=== PATIENT | female | born 1940 | race Caucasian/White ===

== ENCOUNTER → 2017-11-28 07:55 | Outpatient (CLI) | payer MEDICARE, OTHER, SELFPAY ==
--- NOTE | 2017-11-28 07:59 | US_ITS ---
STUDY: RENAL ULTRASOUND - COMPLETE REASON FOR EXAM: Female, 77 years old. Renal failure. TECHNIQUE: Ultrasound evaluation of the kidneys was performed with real-time and static mortensen-scale imaging. COMPARISON: Comparison is made with prior examination dated February 03, 2009. FINDINGS: RIGHT KIDNEY: Normal location of the right kidney, which is normal in size. The right kidney measures 12.7 cm x 4.6 cm x 5.4 cm. There is a normal cortex of the right kidney. The renal cortex measures 1.5 cm. There is a 4.3 cm x 4.2 cm x 4.2 cm cyst in the lower pole. There are no right renal calculi. There is no right hydronephrosis. DISTAL RIGHT URETER: There is non-visualization of the distal right ureter. There is no demonstrated right ureterovesical junction calculus. There is no demonstrated right ureteral jet. LEFT KIDNEY: Normal location of the left kidney, which is normal in size. The left kidney measures 13.4 cm x 4.6 cm x 4.7 cm. There is a normal cortex of the left kidney. The renal cortex measures 1.3 cm. 2 cysts are seen. The larger measures 7.8 cm x 5.2 cm x 4.6 sinus. There are no left renal calculi. There is no left hydronephrosis. DISTAL LEFT URETER: There is non-visualization of the distal left ureter. There is no demonstrated left ureterovesical junction calculus. There is no demonstrated left ureteral jet. BLADDER: The bladder was empty at the time of the examination. US/Kidney and Bladder IMPRESSION: Bilateral renal cysts. Electronically Signed: Deion Mora MD at 13:35 EST Tel [phone], Service support ,
== END ==
PROVIDERS: Family Provider Family Medicine; PCP Family Medicine; Visit Provider Family Medicine
DX: N19 Unspecified kidney failure (principal)
CPT/HCPCS: 76770

== ENCOUNTER → 2017-12-12 10:26 | Outpatient (CLI) | payer MEDICARE, OTHER, SELFPAY ==
[2017-12-12 11:54] LABS: Anion Gap 7 (5-15); BUN 29 mg/dL (7-18); BUN/Creat Ratio 19.3 RATIO (10-20); Calcium,Total 9.1 mg/dL (8.5-10.1); Chloride 100 mmol/L (98-107); EST Glomerular Filtration Rate 36 mL/min (>60); Est Glom Filt Rate - Afr Amer 43 mL/min (>60); Glucose 115 mg/dL (74-106); Potassium 4.1 mmol/L (3.5-5.1); Sodium Level 135 mmol/L (136-145)
== END ==
PROVIDERS: Family Provider Family Medicine; PCP Family Medicine; Visit Provider Family Medicine
DX: I10 Essential (primary) hypertension (principal)
CPT/HCPCS: 36415; 80048

== ENCOUNTER → 2017-12-31 15:28 | Outpatient (CLI) | payer MEDICARE, OTHER, SELFPAY ==
[2017-12-31 18:30] LABS: Anion Gap 7 (5-15); BUN 17 mg/dL (7-18); BUN/Creat Ratio 13.3 RATIO (10-20); Calcium,Total 9.1 mg/dL (8.5-10.1); Chloride 104 mmol/L (98-107); Creatinine, Serum 1.28 mg/dL (0.55-1.02); EST Glomerular Filtration Rate 43 mL/min (>60); Est Glom Filt Rate - Afr Amer 52 mL/min (>60); Glucose 88 mg/dL (74-106); Potassium 3.8 mmol/L (3.5-5.1); Sodium Level 139 mmol/L (136-145)
== END ==
PROVIDERS: Family Provider Family Medicine; PCP Family Medicine; Visit Provider Family Medicine
DX: I10 Essential (primary) hypertension (principal)
CPT/HCPCS: 36415; 80048

== ENCOUNTER → 2018-03-10 07:49 | Outpatient (CLI) | payer MEDICARE, OTHER, SELFPAY ==
[2018-03-10 11:02] LABS: Anion Gap 8 (5-15); BUN 20 mg/dL (7-18); BUN/Creat Ratio 17.9 RATIO (10-20); Calcium,Total 8.5 mg/dL (8.5-10.1); Chloride 106 mmol/L (98-107); Cholesterol 172 mg/dL (200); Creatinine, Serum 1.12 mg/dL (0.55-1.02); EST Glomerular Filtration Rate 50 mL/min (>60); Est Glom Filt Rate - Afr Amer 60 mL/min (>60); Glucose 75 mg/dL (74-106); High Density Lipoprotein 68 mg/dL; Potassium 3.9 mmol/L (3.5-5.1); Sodium Level 142 mmol/L (136-145); Thyroid Stim Hormone (TSH) 2.08 uIU/mL (0.358-3.74); Triglycerides 78 mg/dL; Very Low Density Lipoprotein 16 mg/dL (5-40)
== END ==
PROVIDERS: Family Provider Family Medicine; PCP Family Medicine; Visit Provider Family Medicine
DX: F41.9 Anxiety disorder, unspecified (principal); I10 Essential (primary) hypertension
CPT/HCPCS: 36415; 80048; 80061; 84443

== ENCOUNTER → 2018-04-16 12:22 | Outpatient (CLI) | payer MEDICARE, OTHER, SELFPAY ==
--- NOTE | 2018-04-16 12:56 | BD_ITS ---
STUDY: DUAL ENERGY X-RAY ABSORPTIOMETRY / DXA REASON FOR EXAM: Female, 77 years old. The patient is postmenopausal. Loss of height. TECHNIQUE: Bone Mineral Density (BMD) measurements of lumbar spine and bilateral hips were obtained. COMPARISON: Comparison is made with prior study dated October 10, 2015. FINDINGS: Lumbar Spine (L1-L4): g/cm2 (0.994) / T-score (-1.5) / Z-score (0.3) Findings are suggestive of osteopenia with a moderate fracture risk. Increased kyphosis. Left Femur Total: g/cm2 (0.75 to) / T-score (-2.0) / Z-score (-0.1) Left Femoral Neck: g/cm2 (0.729) / T-score (-2.2) / Z-score (-0.1) Right Femur Total: g/cm2 (0.803) / T-score (-1.6) / Z-score (0.3) Right Femoral Neck: g/cm2 (0.708) / T-score (-2.4) / Z-score (-0.3) The T-Scores on the most recent prior examination were: Lumbar Spine (L1-L4): There has been improvement of bone density since the previous examination. Left Femur Total: which represents a worsening of 10.6%. Right Femur Total: which represents a worsening of 10.1%. BD/Dexa Bone Density Study IMPRESSION: The patient is considered osteopenic as outlined below according to World Tee Organization (WHO) criteria with a moderate fracture risk. There has been worsening of bone density since the previous examination. Reference Information: The T-score is the number of standard deviations above or below the standard which is normal for young adults at their peak bone mineral density. The World Health Organization (WHO) interprets the T-scores as follows: Above -1 Normal bone density Between -1 and -2.5 Osteopenia Equal to / or below -2.5 Osteoporosis As a practical clinical guideline, osteopenia may be graded as follows: Mild -1 through -1.5 Moderate -1.6 through -2.0 Severe -2.1 through -2.4 The Z-score is the number of standard deviations above or below age-matched controls. A Z-score of less than -1.5 would be considered abnormal. References: 1. NIH Osteoporosis and Related Bone Diseases http://www.osteo.org 2. International Society for Clinical Densitometry http://www.iscd.org 3. National Osteoporosis Foundation http://www.nof.org Electronically Signed: Deion Mora MD at 15:18 EDT Tel [phone], Service support ,
== END ==
PROVIDERS: Family Provider Family Medicine; PCP Family Medicine; Visit Provider Family Medicine
DX: Z78.0 Asymptomatic menopausal state (principal); M85.80 Other specified disorders of bone density and structure, unspecified site
CPT/HCPCS: 77080

== ENCOUNTER → 2018-06-19 10:59 | Outpatient (CLI) | payer MEDICARE, OTHER, SELFPAY ==
[2018-06-19 12:42] LABS: AST(SGOT) 23 U/L (15-37); Alanine Aminotransfer ALT/SGPT 25 U/L (13-56); Albumin, Serum 3.8 g/dL (3.2-5.0); Alkaline Phosphatase 68 U/L (45-117); Anion Gap 10 (5-15); BUN 23 mg/dL (7-18); BUN/Creat Ratio 19.7 RATIO (10-20); Calcium,Total 8.9 mg/dL (8.5-10.1); Chloride 105 mmol/L (98-107); Creatinine, Serum 1.17 mg/dL (0.55-1.02); EST Glomerular Filtration Rate 47 mL/min (>60); Est Glom Filt Rate - Afr Amer 57 mL/min (>60); Globulin 3.7 g/dL (2.2-4.2); Glucose 94 mg/dL (74-106); Protein, Total 7.5 g/dL (6.4-8.2); Sodium Level 140 mmol/L (136-145)
== END ==
PROVIDERS: Family Provider Family Medicine; PCP Family Medicine; Visit Provider Family Medicine
DX: N19 Unspecified kidney failure (principal)
CPT/HCPCS: 36415; 80053

== ENCOUNTER → 2018-08-06 09:24 | Outpatient (CLI) | payer MEDICARE, OTHER, SELFPAY ==
[2018-08-06 10:19] LABS: Anion Gap 9 (5-15); BUN 26 mg/dL (7-18); BUN/Creat Ratio 21.7 RATIO (10-20); Calcium,Total 8.7 mg/dL (8.5-10.1); Chloride 105 mmol/L (98-107); EST Glomerular Filtration Rate 46 mL/min (>60); Est Glom Filt Rate - Afr Amer 56 mL/min (>60); Glucose 118 mg/dL (74-106); Sodium Level 139 mmol/L (136-145)
[2018-08-06 10:28] LABS: ALB/GLOB Ratio 1.1 RATIO (0.9-2.4); AST(SGOT) 20 U/L (15-37); Alanine Aminotransfer ALT/SGPT 23 U/L (13-56); Albumin, Serum 3.7 g/dL (3.2-5.0); Alkaline Phosphatase 66 U/L (45-117); Anion Gap 9 (5-15); BUN 26 mg/dL (7-18); BUN/Creat Ratio 21.3 RATIO (10-20); Calcium,Total 8.6 mg/dL (8.5-10.1); Chloride 105 mmol/L (98-107); Creatinine, Serum 1.22 mg/dL (0.55-1.02); EST Glomerular Filtration Rate 45 mL/min (>60); Est Glom Filt Rate - Afr Amer 55 mL/min (>60); Globulin 3.5 g/dL (2.2-4.2); Glucose 120 mg/dL (74-106); Potassium 3.9 mmol/L (3.5-5.1); Protein, Total 7.2 g/dL (6.4-8.2); Sodium Level 139 mmol/L (136-145); Thyroid Stim Hormone (TSH) 2.02 uIU/mL (0.358-3.74)
== END ==
PROVIDERS: Family Provider Family Medicine; PCP Family Medicine; Referring Provider Internal Medicine Cardiovascular Disease; Visit Provider Internal Medicine Cardiovascular Disease
DX: I10 Essential (primary) hypertension (principal); Z86.73 Personal history of transient ischemic attack (TIA), and cerebral infarction without residual deficits; E03.9 Hypothyroidism, unspecified
CPT/HCPCS: 36415; 80048; 80053; 84443

== ENCOUNTER → 2018-08-17 12:27 | Outpatient (CLI) | payer MEDICARE, OTHER, SELFPAY ==
--- NOTE | 2018-08-17 12:28 | CDU_ITS ---
Reason For Study: CVA Rt. Velocities/BP Lt. Velocities/BP Prox CCA 76.2/9.38 cm/sec. Prox CCA 86.8/13.5 cm/sec. Mid CCA 69.8/9.97 cm/sec. Mid CCA 70.4/13.5 cm/sec. Dist CCA 57/11 cm/sec. Dist CCA 63.3/13.5 cm/sec. Prox ICA 35/9.04 cm/sec. Prox ICA 46.8/8.64 cm/sec. Mid ICA 81.7/27.5 cm/sec. Mid ICA 55.8/14.5 cm/sec. Dist ICA 69.1/17.3 cm/sec. Dist ICA 58.7/15.7 cm/sec. Rt. ICA/CCA = 1.17. Lt. ICA/CCA = 0.83. Prox ECA 77.4 cm/sec. Prox ECA 76.2 cm/sec. Rt. Vert. 31.8/4.91 cm/sec. Lt. Vert. 46/14.1 cm/sec. Right Extracranial There is intimal thickening but no significant atherosclerotic plaque noted in the right common carotid artery. There is intimal thickening but no significant atherosclerotic plaque noted in the right internal carotid artery. There is intimal thickening but no significant atherosclerotic plaque noted in the right external carotid artery. Antegrade flow is noted in the right vertebral artery. Left Extracranial There is intimal thickening but no significant atherosclerotic plaque noted in the left common carotid artery. There is intimal thickening but no significant atherosclerotic plaque noted in the left internal carotid artery. There is intimal thickening but no significant atherosclerotic plaque noted in the left external carotid artery. Antegrade flow is noted in the left vertebral artery. Procedure Carotid Duplex [id number]. Exam performed in department. 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 Mild (<50%) stenosis left extracranial internal carotid. Flow within the vertebral arteries is antegrade bilaterally. Ordering Physician: Hansel Schaffer Referring Physician: Florian Juarez MD Performed By: Alisia Draper RVT and Student
--- NOTE | 2018-08-17 12:28 | ECHOD_ITS ---
Reason For Study: TIA/CVA Procedure This was a 2D Doppler, Color Flow transthoracic echocardiogram. The exam was of adequate technical quality. Exam performed in department. Left Ventricle Normal LV size. Mild concentric left ventricular hypertrophy. Apical false tendon noted. Left ventricular systolic function is normal. The estimated ejection fraction is 65 %. Diastolic function is indeterminate. No regional wall motion abnormalities noted. Right Ventricle Normal RV size. Normal systolic function. Atria Normal left atrium. Normal right atrium. No doppler evidence for ASD. Mitral Valve There is no mitral annular calcification. Normal mitral valve. Trivial mitral valve insufficiency. Tricuspid Valve Normal tricuspid valve. Mild tricuspid valve insufficiency. Right ventricular systolic pressure estimated to be 20 mmHg. Aortic Valve Trisinus/trileaflet aortic valve. Normal aortic valve. Pulmonic Valve The pulmonic valve is not well visualized. Trivial pulmonic valve insufficiency. Great Vessels Normal sized aortic root. Pericardium/Pleural No pericardial effusion. MMode/2D Measurements & Calculations LVIDd: 3.7 cm IVSd: 1.4 cm Ao root diam: 3.4 cm LVIDs: 1.9 cm LVPWd: 1.3 cm LA dimension: 3.4 cm RVDd: 2.9 cm FS: 48.0 % Time Measurements MV dec time: 0.23 sec Doppler Measurements & Calculations MV E max conner: 70.1 cm/sec Lat Peak E' Conner: 6.7 cm/sec Med Peak E' Conner: 4.3 cm/sec MV A max conner: 84.7 cm/sec E/E' lat: 10.4 E/E' med: 16.2 MV E/A: 0.83 MV V2 max: 95.3 cm/sec MV P1/2t max conner: 70.3 cm/sec Ao V2 max: 128.9 cm/sec MV max P.6 mmHg MV P1/2t: 125.5 msec Ao max P.6 mmHg MV V2 mean: 58.7 cm/sec MV dec slope: 164.1 cm/sec2 Ao V2 mean: 79.7 cm/sec MV mean P.5 mmHg MVA(P1/2t): 1.8 cm2 Ao mean P.0 mmHg MV V2 VTI: 32.2 cm Ao V2 VTI: 27.7 cm LV V1 max: 124.0 cm/sec TR max conner: 183.2 cm/sec LV V1 max P.2 mmHg TR max P.3 mmHg LV V1 mean P.7 mmHg LV V1 mean: 74.6 cm/sec LV V1 VTI: 27.2 cm Interpretation Summary Left ventricular systolic function is normal. The estimated ejection fraction is 65 %. Mild concentric left ventricular hypertrophy. Apical false tendon noted. Trivial mitral valve insufficiency. Mild tricuspid valve insufficiency. Trivial pulmonic valve insufficiency. Right ventricular systolic pressure estimated to be 20 mmHg. Diastolic function is indeterminate. Ordering Physician: Hansel Schaffer Referring Physician: Hansel Schaffer Performed By: Lane Persaud RCS
[2018-08-17 13:58] LABS: Anion Gap 7 (5-15); BUN 25 mg/dL (7-18); BUN/Creat Ratio 17.1 RATIO (10-20); Calcium,Total 9.2 mg/dL (8.5-10.1); Chloride 102 mmol/L (98-107); Creatinine, Serum 1.46 mg/dL (0.55-1.02); EST Glomerular Filtration Rate 37 mL/min (>60); Est Glom Filt Rate - Afr Amer 44 mL/min (>60); Glucose 110 mg/dL (74-106); Potassium 4.1 mmol/L (3.5-5.1); Sodium Level 137 mmol/L (136-145)
== END ==
PROVIDERS: Family Provider Family Medicine; PCP Family Medicine; Referring Provider Internal Medicine Cardiovascular Disease; Visit Provider Internal Medicine Cardiovascular Disease
DX: I10 Essential (primary) hypertension (principal); Z86.73 Personal history of transient ischemic attack (TIA), and cerebral infarction without residual deficits
CPT/HCPCS: 36415; 80048; 93306; 93880

== ENCOUNTER → 2018-09-07 09:11 | Outpatient (CLI) | payer MEDICARE, OTHER, SELFPAY ==
[2018-07-30 11:18] VITALS: BMI 28.1
[2018-09-07 10:05] LABS: Anion Gap 12 (5-15); BUN 25 mg/dL (7-18); BUN/Creat Ratio 18.9 RATIO (10-20); Calcium,Total 8.6 mg/dL (8.5-10.1); Chloride 105 mmol/L (98-107); Creatinine, Serum 1.32 mg/dL (0.55-1.02); EST Glomerular Filtration Rate 41 mL/min (>60); Est Glom Filt Rate - Afr Amer 50 mL/min (>60); Glucose 85 mg/dL (74-106); Potassium 4.3 mmol/L (3.5-5.1); Sodium Level 141 mmol/L (136-145)
== END ==
PROVIDERS: Family Provider Family Medicine; PCP Family Medicine; Referring Provider Internal Medicine Cardiovascular Disease; Visit Provider Internal Medicine Cardiovascular Disease
DX: I10 Essential (primary) hypertension (principal); E87.6 Hypokalemia
CPT/HCPCS: 36415; 80048

== ENCOUNTER → 2018-10-12 09:37 | Outpatient (CLI) | payer MEDICARE, OTHER, SELFPAY ==
[2018-07-30 11:18] VITALS: BMI 28.1
--- NOTE | 2018-10-12 09:41 | BI_ITS ---
MAMMOGRAPHY - BILATERAL SCREENING REASON FOR EXAM: Female, 78 years old. Routine annual screening examination. PERTINENT HISTORY: Aunt with breast cancer. Remote left stereotactic breast biopsies. TECHNIQUE: Digital bilateral breast saritha (3D mammographic acquisition) in the CC and MLO projections. 2-D mediolateral oblique (MLO) and craniocaudad (CC) views of both breasts were obtained. CAD: Full Field Digital Mammography with Computer Added Detection was performed. COMPARISON: Comparison is made with prior study dated October 09, 2017. FINDINGS: Breast Composition: The breasts are almost entirely fatty. There are no dominant masses or suspicious calcifications. Stable benign-appearing bilateral axillary lymph nodes. No other significant abnormalities are identified. There has been no significant change since the prior study. BI/SCREENING MAMM (CAD), BILAT IMPRESSION: Stable bilateral screening mammogram. Yearly follow-up mammogram recommended. (A) ASSESSMENT CATEGORY: BIRADS Category 2: Benign. A letter regarding these results will be sent to the patient by the facility within 30 days. Approximately 10% of breast cancers are not detected by mammography. A normal mammogram should not delay biopsy of a clinically suspicious abnormality. [id number] Electronically Signed: Deion Mora MD at 13:39 EST Tel [phone], Service support ,
== END ==
PROVIDERS: Family Provider Family Medicine; PCP Family Medicine; Visit Provider Nurse Practitioner Women's Health
DX: Z12.31 Encounter for screening mammogram for malignant neoplasm of breast (principal)
CPT/HCPCS: 77063; 77067

== ENCOUNTER → 2018-11-02 12:48 | Outpatient (CLI) | payer MEDICARE, OTHER, SELFPAY ==
[2018-11-02 11:38] VITALS: BMI 28.5
[2018-11-02 16:01] LABS: Anion Gap 8 (5-15); BUN 28 mg/dL (7-18); BUN/Creat Ratio 19.2 RATIO (10-20); Chloride 103 mmol/L (98-107); Creatinine, Serum 1.46 mg/dL (0.55-1.02); EST Glomerular Filtration Rate 37 mL/min (>60); Est Glom Filt Rate - Afr Amer 44 mL/min (>60); Glucose 87 mg/dL (74-106); Potassium 4.6 mmol/L (3.5-5.1); Sodium Level 139 mmol/L (136-145)
--- OUTSIDE RECORDS SUMMARY | 2019-01-04 23:45 | XMS RPT_ITS ---
:1940 Author Organization OHIP Support Name Relationship Address Phone R Unavailable Unavailable Unavailable DEEPIKA PETTY Unavailable [address] + [place] [address] [place], LOC Unavailable [address] + [place] [address] R Unavailable Unavailable Unavailable DEEPIKA PETTY Unavailable [address] + [place] [address] [place], LOC Unavailable [address] + [place] [address] R Unavailable Unavailable Unavailable DEEPIKA PETTY Unavailable [address] + [place] [address] [place], LOC Unavailable [address] + [place] [address] R Unavailable Unavailable Unavailable DEEPIKA PETTY Unavailable [address] + [place] [address] [place], LOC Unavailable [address] + [place] [address] R Unavailable Unavailable Unavailable MALINDA, DEEPIKA Unavailable [address] + [place] [address] [place], [place] Unavailable [address] + [place] [address] R Unavailable Unavailable Unavailable ROSA PETTYDY Unavailable [address] + [place] [address] [place], LOC Unavailable [address] + [place] [address] R Unavailable Unavailable Unavailable ROSA PETTYDY Unavailable [address] + [place] [address] [place], LOC Unavailable [address] + [place] [address] R Unavailable Unavailable Unavailable MALINDA, DEEPIKA Unavailable [address] + [place] [address] [place], LOC Unavailable [address] + [place] [address] R Unavailable Unavailable Unavailable DEEPIKA PETTY Unavailable [address] + [place] [address] [place], LOC Unavailable [address] + [place] [address] R Unavailable Unavailable Unavailable DEEPIKA PETTY Unavailable [address] + [place] [address] [place], LOC Unavailable [address] + [place] [address] R Unavailable Unavailable Unavailable DEEPIKA PETTY Unavailable [address] + [place] [address] [place], LOC Unavailable [address] + [place] [address] R Unavailable Unavailable Unavailable DEEPIKA PETTY Unavailable [address] + [place] [address] [place], LOC Unavailable [address] + [place] [address] R Unavailable Unavailable Unavailable DEEPIKA PETTY Unavailable [address] + [place] [address] [place], LOC Unavailable [address] [phone] [place] [address] R Unavailable Unavailable Unavailable DEEPIKA PETTY Unavailable [address] + [place] [address] [place], LOC Unavailable [address] [phone] [place] [address] R Unavailable Unavailable Unavailable DEEPIKA PETTY Unavailable [address] + [place] [address] [place], LOC Unavailable [address] [phone] [place] [address] R Unavailable Unavailable Unavailable ROSA PETTYDY Unavailable [address] + [place] [address] [place], LOC Unavailable [address] [phone] [place] [address] Care Team Providers Name Role Phone Ramona Mejia Attending Unavailable Ranney, Christopher Primary Care Unavailable Ramona Mejia Attending Unavailable Ranney, Florian Referring Unavailable Ranney, Londoner Attending Unavailable [facility], [facility] Unavailable Ranney, Londoner Attending Unavailable Ranney, Christopher Referring Unavailable Ranney, Christopher Primary Care Unavailable Roof, Lemuel H Attending Unavailable Ranney, Christopher Referring Unavailable Roof, Lemuel H Attending Unavailable Roof, Lemuel H Referring Unavailable Ranney, [facility] Primary Care Unavailable Ranney, Christjoanieer Attending Unavailable [facility], [facility] Unavailable Ranney, Christjoanieer Attending Unavailable Ranney, Christopher Referring Unavailable Ranney, [facility] Primary Care Unavailable Ranney, Christopher Attending Unavailable Ranney, [facility] Primary Care Unavailable Ranney, Christjoanieer Attending Unavailable Ranney, [facility] Primary Care Unavailable Nadia Marie Attending Unavailable Moodispaw, Hansel Attending Unavailable Ranney, Londoner Referring Unavailable Moodisp[place], Hansel Attending Unavailable Mood[place], Hansel Referring Unavailable Ranney, [facility] Unavailable Mood[place], Hansel Attending Unavailable Mood[place], Hansel Referring Unavailable Ranney, [facility] Primary Care Unavailable Mood[place], Hansel Attending Unavailable Mood[place], Hansel Referring Unavailable Ranney, [facility] Unavailable Mood[place], Hansel Consulting Unavailable Mood[place], Hansel Attending Unavailable Mood[place], Hansel Referring Unavailable Ranney, [facility] Primary Care Unavailable PROBLEMS PROBLEMS DATE TYPE CONDITION / CODE ATTENDING STATUS SOURCE 11/02/2018 Unknown I10 - Essential Roof, Lemuel Patino Active [place] (primary) Community hypertension / Hospital I10(ICD-10) Repository 11/02/2018 Unknown E78.5 - Roof, Lemuel Patino Active [place] Hyperlipidemia, Community unspecified / Hospital E78.5(ICD-10) Repository 11/02/2018 Unknown I63.9 - Cerebral Roof, Lemuel Patino Active [place] infarction, Community unspecified / Hospital I63.9(ICD-10) Repository 10/23/2018 Unknown Z01.411 - Encounter Ramona Mejia Active [place] for gynecological [facility] examination Hospital (general) (routine) Repository with abnormal findings / Z01.411(ICD-10) 10/23/2018 Unknown N95.2 - Ramona Mejia Active [place] Postmenopausal Community atrophic vaginitis / Hospital N95.2(ICD-10) Repository 10/19/2018 Unknown Z12.31 - Encounter Ramona Mejia Active [place] for screening Community mammogram for Hospital malignant neoplasm Repository of breast / Z12.31(ICD-10) 08/17/2018 Unknown Z86.73 - Personal MoodispaHansel valdez Active [place] history of transient Community ischemic attack Hospital (TIA), and cerebral Repository infarction without residual deficits / Z86.73(ICD-10) 12/24/2017 Unknown N19 - Unspecified Rantrue, Active [place] kidney failure / [facility] N19(ICD-10) Hospital Repository PROCEDURES PROCEDURES No Procedure Records FoundRESULTS RESULTS CARDIOLOGY VISIT Observed: 11/02/2018 Status: F Source: [place] REPORT 3:19 PM [facility] HOSPITAL REPOSITORY [facility]. [address] [place] [address] OFFICE VISIT Date of Service: 11/02/18 MR#: [id number] Acct: [id number] Name: STEVE SAAVEDRA Rep #: [id number] : 1940 Provider: PRUDENCE Mcdermott Age/Sex: 78/F [place] [facility] Status: Signed HPI HPI Details: STEVE SAAVEDRA, is a 78 F who presents to the office today for a cardiovascular outpatient follow-up. She has a history of hypertension, hyperlipidemia, and multiple CVAs. She has been on multiple medications in the past for hypertension. Her amlodipine has been decreased to avoid significant hypotension. Previously when on hydrochlorothiazide she developed hyponatremia and hypokalemia. Pt. denies chest, arm, jaw, or neck discomfort. Her exercise tolerance is stable. Pt. denies symptoms of CHF, palpitations, dizziness, near syncope, or syncopal episodes. Pt. denies edema or claudication issues. Pt. denies PND, fever, chills, blood in urine, blood in stool, or myalgia. She states generally feels tired. She states few episodes of lightheadedness after not sleeping well or anxious. She states when anxious she notices leg weakness. She state rare episodes of muscle cramps. She states possible orthopnea and thus always sleeps on an incline and d/t history of GERD. 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 Required: No Accompanied by: Is patient in pain?: No Allergies escitalopram [From Lexapro] Allergy (Severe, Verified 11/02/18 11:46) parasthesis Sulfa (Sulfonamide Antibiotics) Allergy (Verified 11/02/18 11:46) Unknown verapamil HCl [From Covera-HS] Allergy (Verified 11/02/18 11:46) Other simvastatin [From Zocor] Adverse Reaction (Severe, Verified 11/02/18 11:46) Myalgias Medications Ubidecarenone/Vit E Acet [Co Q-10 100 mg Softgel] 1 ea PO DAILY 03/02/17 [History Confirmed 11/02/18] B Complex with Vitamin C [B-Complex Plus Vitamin C] 1 ea PO DAILY #30 03/18/17 [Rx Confirmed 11/02/18] Cholecalciferol (VIT D3) [Vitamin D3] 1,000 unit PO BIDCM #60 tab 03/18/17 [Rx Confirmed 11/02/18] Senna [Senokot] 1 tab PO BID PRN PRN #30 tab 03/24/17 [Rx Confirmed 11/02/18] loratadine 10 mg tablet 10 mg PO QDAY 09/30/17 [History Confirmed 11/02/18] amlodipine 5 mg tablet 5 mg PO DAILY 07/30/18 [History Confirmed 11/02/18] atenolol 25 mg tablet 25 mg PO BID tab 07/30/18 [History Confirmed 11/02/18] clopidogrel 75 mg tablet 75 mg PO DAILY tab 07/30/18 [History Confirmed 11/02/18] esomeprazole magnesium 40 mg capsule,delayed release 40 mg PO DAILY 07/30/18 [History Confirmed 11/02/18] levothyroxine 50 mcg tablet 50 mcg PO DAILY 07/30/18 [History Confirmed 11/02/18] lorazepam 0.5 mg tablet 0.5 mg PO QHS PRN 07/30/18 [History Confirmed 11/02/18] losartan 100 mg tablet 100 mg PO DAILY 07/30/18 [History Confirmed 11/02/18] rosuvastatin 10 mg tablet 10 mg PO DAILY 07/30/18 [History Confirmed 11/02/18] spironolactone 25 mg tablet 25 mg PO DAILY #90 tab 09/14/18 [Rx Confirmed 11/02/18] Ejection fraction %: 65 to 70 PFSH Medical History Hypokalemia (Acute) Received intravenous tissue plasminogen activator (tPA) in emergency department (Chronic) Hyperlipidemia (Chronic) History of stroke (Chronic) HTN (hypertension) (Chronic) Cephalgia (Chronic) GERD (gastroesophageal reflux disease) (Chronic) Carpal tunnel syndrome of left wrist (Suspected) CVA (cerebral vascular accident) (Chronic) Hypothyroid (Chronic) Hypokalemia (Inactive) Hyponatremia (Inactive) Surgical History Status post Mohs surgery (Resolved 2011) History of hysterectomy (Resolved) History of tonsillectomy (Resolved) History of tubal ligation (Resolved) Family History Father Heart disease Emphysema of lung Social History Smoking Status: Never smoker alcohol intake: never substance use type: does not use caffeine: Yes Type: coffee Number of servings: 2 what type of physical activity do you participate in: walking seatbelt use: always do you feel safe at home: Yes additional social history: Loc-Retired ROS Const Const: Positive for fatigue; negative for body ache, fever(s), chills or weakness ENT ENT: Negative for dizziness Cardio Chest Pain: No Palpitations: No Edema: None Muscle aches with walking: None Resp Respiratory: Negative for SOB with activity, SOB at rest, SOB orthopnea\SOB lying down or paroxysmal nocturnal dyspnea GI GI: Negative nausea, black,tarry stools, bright, red blood in stools or vomiting blood/hematemesis : Negative for hematuria or frequent nighttime urination/ nocturia Musc Musc: Negative for muscle aches/ myalgia Skin Skin: Negative non-healing lesions or rash Neuro Neuro: Positive for lightheadedness; negative for weakness, dizziness, near syncope, syncope or orthostatic symptoms Endo Endo: Positive for fatigue Allergy Allergy/Immunology: Negative for rash Cardiology Exam Const Appearance: cooperative, healthy appearing, comfortable, no acute distress, well developed and well groomed Nutritional Appearance: overweight and well nourished Orientation: alert, awake and oriented x3 Head Head: normal to inspection, normocephalic and atraumatic Ears: hearing grossly normal bilaterally Nose: external nose normal Face and Sinus: face symmetric Mouth: oral mucosae normal Teeth and gingiva: fair dentition Eyes Eyelids: eyelids normal Conjunctivae: conjunctivae normal Pupils: PERRL EOM: EOM intact bilaterally Neck Neck: normal visual inspection and full ROM Carotids: normal carotid upstroke Chest Chest inspection: normal inspection of the chest, symmetric chest movement and normal respiratory effort Auscultation: Bilateral: Clear to Auscultation Cardio Palpation: normal PMI Rate: regular rate Rhythm: regular rhythm Heart sounds: S1 normal and S2 normal; negative rub, gallop or murmur GI GI: normal to inspection, bowel sounds present and soft Neuro General: alert, awake and oriented x3 Skin Skin: no rashes or lesions noted Extremities Pulses: Normal: Right Radial Pulse, Left Radial Pulse Lower Extremity Edema: None: Bilateral Psych Psychological: normal affect Assessment AND Plan 1. Essential hypertension I10 Plan After last office visit she was started on low-dose spironolactone. She underwent a BMP evaluation showed stable sodium and potassium level. Her blood pressure is better controlled since addition of this medication. At this time she will continue current medications and we will continue to monitor. She will undergo a BMP to evaluated electrolytes and kidney function. Orders Orders: 2. Hyperlipidemia, unspecified hyperlipidemia type E78.5 Plan Lipid panel from February 2018 showed cholesterol: 172, HDL: 68, LDL: 80, and triglycerides: 78. She will continue with current statin medication. We will continue to monitor. She believes this may be evaluated by primary care provider. Orders Orders: 3. CVA (cerebral vascular accident) I63.9 Plan Her most recent echocardiogram in August 2018 showed ejection fraction of 65%. Her carotid duplex ultrasound from August 2018 showed bilateral right and left extracranial internal carotid with mild, less than 50%, stenosis. Based on her testing there is no obvious changes to explain CVA history. She will continue to follow with PCP for further evaluation. Orders Orders: Plan Detail Additional Comments Thank you for allowing us to participate in the patient's plan of care, if you have any questions please do not hesitate to call. This note was generated using a voice recognition system and there may be incorrect words, spelling, or punctuation that were not noted upon reviewing the office note prior to saving. Follow Up 12 Months (PFM) 6 Months (INDUSTRIAL ENGINEER/PA) Coding Level of Care Code Off vis,est,level 3 Diagnoses Essential hypertension I10 Hypertension type: essential hypertension Hyperlipidemia, unspecified hyperlipidemia type E78.5 Hyperlipidemia type: unspecified CVA (cerebral vascular accident) I63.9 Laterality of affected vessel: right Coding Level of Care Code Off vis,est,level 3 Diagnoses Essential hypertension I10 Hypertension type: essential hypertension Hyperlipidemia, unspecified hyperlipidemia type E78.5 Hyperlipidemia type: unspecified CVA (cerebral vascular accident) I63.9 Laterality of affected vessel: right Supplemental Info Supplemental Information The duplex ultrasound from 08/17/2018: Interpretation Summary Mild (<50%) stenosis right extracranial internal carotid. Mild (<50%) stenosis left extracranial internal carotid. Flow within the vertebral arteries is antegrade bilaterally. Echocardiogram from 08/17/2018: Interpretation Summary Left ventricular systolic function is normal. The estimated ejection fraction is 65 %. Mild concentric left ventricular hypertrophy. Apical false tendon noted. Trivial mitral valve insufficiency. Mild tricuspid valve insufficiency. Trivial pulmonic valve insufficiency. Right ventricular systolic pressure estimated to be 20 mmHg. Diastolic function is indeterminate. Labs LDL Cholesterol 88 mg/dL (0-130) 03/10/18 HDL Cholesterol 68 mg/dL (40-) 03/10/18 Triglycerides 78 mg/dL (-199) 03/10/18 VLDL Cholesterol 16 mg/dL (5-40) 03/10/18 Diagnostics Electrocardiogram 07/30/18 Echocardiogram 08/17/18 Chest X-Ray 03/22/17 11/02/18 4251 <Electronically signed by Lemuel COFFEY> Date Lemuel Mijares Signature: Date (if applicable) CC: Florian Juarez MD BASIC METABOLIC Collected: 11/02/2018 Status: F Source: [place] PROFILE (BMP) 12:54 PM [facility] REPOSITORY TYPE CODE TESTS RESULT OUT OF RANGE REFERENCE UNITS LAB L501.0100 74-106 mg/dL Normal GLU 87 Result Comment: Please note revised GLUCOSE reference range effective 2017. LAB L501.1000 7-18 mg/dL High BUN 28 LAB L501.1100 0.55-1.02 mg/dL High CREAT,SERUM 1.46 Result Comment: The validity of the calculated GFR AND GFRAA in patients over 70 years has not been determined. Clinical correlation is essential. LAB L501.1110 >60 mL/min Low EST GFR 37 Result Comment: Non- GFR Calc LAB L501.1115 >60 mL/min Low EST GFR - AA 44 Result Comment: GFR Calc LAB L501.1300 10-20 RATIO Normal BUN/CRE 19.2 LAB L501.2200 8.5-10.1 mg/dL CA Normal 9.0 LAB L501.5300 136-145 mmol/L NA Normal 139 LAB L501.5600 3.5-5.1 mmol/L K Normal 4.6 LAB L501.5900 98-107 mmol/L CL Normal 103 LAB L501.6100 21.0-32.0 mmol/L Normal CO2 28.0 LAB L501.6200 5-15 Normal GAP 8 Performed By: #### L500.2500 #### [facility] [address] [place], [address] FIELD CARE MANAGER OFFICE VISIT Observed: 10/12/2018 Status: F Source: [place] REPORT 10:49 AM [facility] REPOSITORY [facility] [address] [place] [address] OFFICE VISIT Date of Service: 10/12/18 MR#: [id number] Acct: [id number] Name: STEVE SAAVEDRA Rep #: [id number] : 1940 Provider: PRUDENCE Mejia Age/Sex: 78/F [place] [facility] [place] Signed Intake Vital Signs10/12/18 Height 5 ft 2 in 10/12/18 Weight: 156 lb 2 oz 10/12/18 Body Mass Index (BMI) 28.5 10/12/18 Blood Pressure 134/86 H Intake Visit Reasons: ANNUAL Chief Complaint: Est Annual Accompanied by: Self Is patient in pain?: No Allergies escitalopram [From Lexapro] Allergy (Severe, Verified 07/30/18 11:18) parasthesis Sulfa (Sulfonamide Antibiotics) Allergy (Verified 07/30/18 11:18) Unknown verapamil HCl [From Covera-HS] Allergy (Verified 07/30/18 11:18) Other simvastatin [From Zocor] Adverse Reaction (Severe, Verified 07/30/18 11:18) Myalgias Medications Ubidecarenone/Vit E Acet [Co Q-10 100 mg Softgel] 1 ea PO DAILY 03/02/17 [History Confirmed 10/12/18] B Complex with Vitamin C [B-Complex Plus Vitamin C] 1 ea PO DAILY #30 03/18/17 [Rx Confirmed 10/12/18] Cholecalciferol (VIT D3) [Vitamin D3] 1,000 unit PO BIDCM #60 tab 03/18/17 [Rx Confirmed 10/12/18] Senna [Senokot] 1 tab PO BID PRN PRN #30 tab 03/24/17 [Rx Confirmed 10/12/18] loratadine 10 mg tablet 10 mg PO QDAY 09/30/17 [History Confirmed 10/12/18] amlodipine 5 mg tablet 5 mg PO DAILY 07/30/18 [History Confirmed 10/12/18] atenolol 25 mg tablet 25 mg PO BID tab 07/30/18 [History Confirmed 10/12/18] clopidogrel 75 mg tablet 75 mg PO DAILY tab 07/30/18 [History Confirmed 10/12/18] esomeprazole magnesium 40 mg capsule,delayed release 40 mg PO DAILY 07/30/18 [History Confirmed 10/12/18] levothyroxine 50 mcg tablet 50 mcg PO DAILY 07/30/18 [History Confirmed 10/12/18] lorazepam 0.5 mg tablet 0.5 mg PO QHS PRN 07/30/18 [History Confirmed 10/12/18] losartan 100 mg tablet 100 mg PO DAILY 07/30/18 [History Confirmed 10/12/18] rosuvastatin 10 mg tablet 10 mg PO DAILY 07/30/18 [History Confirmed 10/12/18] spironolactone 25 mg tablet 25 mg PO DAILY #90 tab 09/14/18 [Rx Confirmed 10/12/18] Is last menstrual period known: No Post menopausal: Yes Patient : No : No PFSH Medical History Received intravenous tissue plasminogen activator (tPA) in emergency department (Chronic) Hyperlipidemia (Chronic) History of stroke (Chronic) HTN (hypertension) (Chronic) Cephalgia (Chronic) GERD (gastroesophageal reflux disease) (Chronic) Carpal tunnel syndrome of left wrist (Suspected) CVA (cerebral vascular accident) (Chronic) Hypothyroid (Chronic) Hypokalemia (Inactive) Hyponatremia (Inactive) Surgical History History of hysterectomy (Resolved) History of tonsillectomy (Resolved) History of tubal ligation (Resolved) Family History Father Heart disease Social History Smoking Status: Never smoker alcohol intake: never substance use type: does not use caffeine: Yes what type of physical activity do you participate in: walking seatbelt use: always do you feel safe at home: Yes additional social history: Loc-Retired Pregancy History 3 Elective abortions Hx Para 3 Spontaneous abortions Past Pregnancies Del. DatName GA/WeeksOutcome Route [facility] en tn Unknown 1959 Bra d Unknown 1961 Yecenia an Unknown 1962 Selene y HPI ANNUAL: Details: STEVE SAAVEDRA is a 78 year old who presents for annual exam. Using mineral oil daily for vaginal dryness and occa A AND D ointment if irritated. Works well for her. Estrogen cream too costly History of abnormal PAP: no Last mammogram: today History of abnormal mammogram: neg biopsy Colon cancer screenin Female Reproductive History Questions: Metorrhagia: No, Sexually active: No, Dyspareunia: No, PCB: No ROS Const Constitutional: Denies fatigue, weight gain or weight loss Cardio Card: Denies chest pain Resp Resp: Denies cough or shortness of breath with activity GI GI: Denies abdominal pain, constipation, change in stools, vomiting or bloating : Reports as per HPI; denies urinary frequency, pelvic pain, urinary urgency, vaginal discharge, vaginal itching, urinary incontinence or difficulty urinating Exam Const General: cooperative, healthy appearing, no acute distress, well developed Orientation: alert, oriented to person, oriented to place [facility] Head: normal to inspection Neck Neck: normal visual inspection Thyroid: thyroid normal Lymphatic: no lymphadenopathy noted Chest Breast inspection: normal inspection of the breasts, normal inspection of the axillae Breast palpation: normal palpation of the breasts, normal palpation of the axillae, no axillary lymphadenopathy Resp Effort AND Inspection: normal respiratory effort GI Palpation: soft, nontender, no masses Rectal Exam: deferred External Female Exam: normal appearance of the urethra, other (regression of minora) Urethra: normal appearance of the urethra Speculum Exam - Vagina: normal vaginal discharge, atrophic vaginal mucosa Speculum Exam - Cervix: normal appearance of the cervix (stenotic) Bimanual Exam- Vagina AND Uterus: normal bimanual exam, uterine size normal, uterine shape normal, uterus non-tender Bimanual Exam- Adnexa, other: normal adnexae, no adnexal masses, adnexae non-tender, pelvic support normal Pelvic Support: normal Neuro General: alert, oriented x3 Psych Affect: normal affect Assessment AND Plan Problems 1. Encounter for gynecological examination with abnormal finding Z01.411 2. Atrophic vaginitis N95.2 Plan Completed breast and pelvic exam Reviewed diet and exercise Pap NA Mammogram today pending Continue mineral oil, A AND D as directed Colonoscopy up to date Bone density up to date RTO 2 year, prn with problems Ramona Mejia CNP Coding Level of Care Code MC Pelvic/Breast Diagnoses Encounter for gynecological examination with abnormal finding Z01.411 Gynecological examination findings: abnormal findings PRESENT Atrophic vaginitis N95.2 10/12/18 1049 <Electronically signed by Ramona COFFEY> Date Ramona COFFEY Cosigner Signature: Date (if applicable) CC: SCREENING MAMM (CAD), Observed: 10/12/2018 Status: F Source: [place] BILAT 9:41 AM [facility] HOSPITAL REPOSITORY [facility] [address] [place] [address] SCREENING MAMM (CAD), BILAT MR#: [id number] Acct: [id number] Name: STEVE SAAVEDRA Rep #: [id number] : 1940 F 78 From: Deion Mora MD PCP: Florian Juarez MD Status: REG CLI Study: SCREENING MAMM (CAD), BILAT Date of Exam: 10/12/18 Exam# [id number] Ordering Dr: Ramona Mejia INDUSTRIAL ENGINEER-C MAMMOGRAPHY - BILATERAL SCREENING REASON FOR EXAM: Female, 78 years old. Routine annual screening examination. PERTINENT HISTORY: Aunt with breast cancer. Remote left stereotactic breast biopsies. TECHNIQUE: Digital bilateral breast saritha (3D mammographic acquisition) in the CC and MLO projections. 2-D mediolateral oblique (MLO) and craniocaudad (CC) views of both breasts were obtained. CAD: Full Field Digital Mammography with Computer Added Detection was performed. COMPARISON: Comparison is made with prior study dated October 09, 2017. FINDINGS: Breast Composition: The breasts are almost entirely fatty. There are no dominant masses or suspicious calcifications. Stable benign-appearing bilateral axillary lymph nodes. No other significant abnormalities are identified. There has been no significant change since the prior study. BI/SCREENING MAMM (CAD), BILAT IMPRESSION: Stable bilateral screening mammogram. Yearly follow-up mammogram recommended. (A) ASSESSMENT CATEGORY: BIRADS Category 2: Benign. A letter regarding these results will be sent to the patient by the facility within 30 days. Approximately 10% of breast cancers are not detected by mammography. A normal mammogram should not delay biopsy of a clinically suspicious abnormality. [id number] Electronically Signed: Deion Mora MD at 13:39 EST Tel [phone], Service support , CC: PRUDENCE Mejia; Florian Juarez MD Metal Painter: Signed BASIC METABOLIC Collected: 09/07/2018 Status: F Source: [place] PROFILE (BMP) 9:16 AM [facility] REPOSITORY TYPE CODE TESTS RESULT OUT OF RANGE REFERENCE UNITS LAB L501.0100 74-106 mg/dL Normal GLU 85 Result Comment: Please note revised GLUCOSE reference range effective 2017. LAB L501.1000 7-18 mg/dL High BUN 25 LAB L501.1100 0.55-1.02 mg/dL High CREAT,SERUM 1.32 Result Comment: The validity of the calculated GFR AND GFRAA in patients over 70 years has not been determined. Clinical correlation is essential. LAB L501.1110 >60 mL/min Low EST GFR 41 Result Comment: Non- GFR Calc LAB L501.1115 >60 mL/min Low EST GFR - AA 50 Result Comment: GFR Calc LAB L501.1300 10-20 RATIO Normal BUN/CRE 18.9 LAB L501.2200 8.5-10.1 mg/dL CA Normal 8.6 LAB L501.5300 136-145 mmol/L NA Normal 141 LAB L501.5600 3.5-5.1 mmol/L K Normal 4.3 LAB L501.5900 98-107 mmol/L CL Normal 105 LAB L501.6100 21.0-32.0 mmol/L Normal CO2 24.0 LAB L501.6200 5-15 Normal GAP 12 Performed By: #### L500.2500 #### [facility] Laboratory [address] [facility]. [place], [place], [address] CAROTID DUPLEX Observed: 08/19/2018 Status: F Source: [place] ULTRASOUND 10:53 AM [facility] REPOSITORY [facility] [address] [place] [address] Carotid Duplex Ultrasound 08/17/18 1232 MR#: [id number] Acct: [id number] Name: STEVE SAAVEDRA Rep #: [id number] : 1940 77 From: Corey Tejada MD Attending Dr: Hansel Schaffer MD Status: REG CLI Ordering Dr: Hansel Schaffer MD Date: 08/17/18 Location: CVS Sex: F C Admitted: Reason For Study: CVA Rt. Velocities/BP Lt. Velocities/BP Prox CCA 76.2/9.38 cm/sec. Prox CCA 86.8/13.5 cm/sec. Mid CCA 69.8/9.97 cm/sec. Mid CCA 70.4/13.5 cm/sec. Dist CCA 57/11 cm/sec. Dist CCA 63.3/13.5 cm/sec. Prox ICA 35/9.04 cm/sec. Prox ICA 46.8/8.64 cm/sec. Mid ICA 81.7/27.5 cm/sec. Mid ICA 55.8/14.5 cm/sec. Dist ICA 69.1/17.3 cm/sec. Dist ICA 58.7/15.7 cm/sec. Rt. ICA/CCA = 1.17. Lt. ICA/CCA = 0.83. Prox ECA 77.4 cm/sec. Prox ECA 76.2 cm/sec. Rt. Vert. 31.8/4.91 cm/sec. Lt. Vert. 46/14.1 cm/sec. Right Extracranial There is intimal thickening but no significant atherosclerotic plaque noted in the right common carotid artery. There is intimal thickening but no significant atherosclerotic plaque noted in the right internal carotid artery. There is intimal thickening but no significant atherosclerotic plaque noted in the right external carotid artery. Antegrade flow is noted in the right vertebral artery. Left Extracranial There is intimal thickening but no significant atherosclerotic plaque noted in the left common carotid artery. There is intimal thickening but no significant atherosclerotic plaque noted in the left internal carotid artery. There is intimal thickening but no significant atherosclerotic plaque noted in the left external carotid artery. Antegrade flow is noted in the left vertebral artery. Procedure Carotid Duplex 83031. Exam performed in department. 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 Mild (<50%) stenosis left extracranial internal carotid. Flow within the vertebral arteries is antegrade bilaterally. Ordering Physician: Hansel Schaffer Referring Physician: Florian Juarez MD Performed By: Alisia Drapre RVT and Student 08/19/18 1053 Date Corey Tejada MD CC: Florian Juarez MD; Hansel Schaffer MD Date Dictated: 08/17/18 1232 Date Transcribed: 08/19/18 1053 Metal Painter: Signed ECHOCARDIOGRAM COMPLETE Observed: 08/17/2018 Status: F Source: [place] 6:37 PM [facility] REPOSITORY [facility] [address] [place] [address] Echo Complete 08/17/18 1428 MR#: [id number] Acct: [id number] Name: STEVE SAAVEDRA Rep #: [id number] : 1940 77 From: Hansel Schaffer MD Attending Dr: Hansel Schaffer MD Status: REG CLI Ordering Dr: Hansel Schaffer MD Date: 08/17/18 Location: CVS Sex: F C Admitted: Reason For Study: TIA/CVA Procedure This was a 2D Doppler, Color Flow transthoracic echocardiogram. The exam was of adequate technical quality. Exam performed in department. Left Ventricle Normal LV size. Mild concentric left ventricular hypertrophy. Apical false tendon noted. Left ventricular systolic function is normal. The estimated ejection fraction is 65 %. Diastolic function is indeterminate. No regional wall motion abnormalities noted. Right Ventricle Normal RV size. Normal systolic function. Atria Normal left atrium. Normal right atrium. No doppler evidence for ASD. Mitral Valve There is no mitral annular calcification. Normal mitral valve. Trivial mitral valve insufficiency. Tricuspid Valve Normal tricuspid valve. Mild tricuspid valve insufficiency. Right ventricular systolic pressure estimated to be 20 mmHg. Aortic Valve Trisinus/trileaflet aortic valve. Normal aortic valve. Pulmonic Valve The pulmonic valve is not well visualized. Trivial pulmonic valve insufficiency. Great Vessels Normal sized aortic root. Pericardium/Pleural No pericardial effusion. MMode/2D Measurements AND Calculations LVIDd: 3.7 cm IVSd: 1.4 cm Ao root diam: 3.4 cm LVIDs: 1.9 cm LVPWd: 1.3 cm LA dimension: 3.4 cm RVDd: 2.9 cm FS: 48.0 % Time Measurements MV dec time: 0.23 sec Doppler Measurements AND Calculations MV E max conner: 70.1 cm/sec Lat Peak E' Conner: 6.7 cm/sec Med Peak E' Conner: 4.3 cm/sec MV A max conner: 84.7 cm/sec E/E' lat: 10.4 E/E' med: 16.2 MV E/A: 0.83 MV V2 max: 95.3 cm/sec MV P1/2t max conner: 70.3 cm/sec Ao V2 max: 128.9 cm/sec MV max P.6 mmHg MV P1/2t: 125.5 msec Ao max P.6 mmHg MV V2 mean: 58.7 cm/sec MV dec slope: 164.1 cm/sec2 Ao V2 mean: 79.7 cm/sec MV mean P.5 mmHg MVA(P1/2t): 1.8 cm2 Ao mean P.0 mmHg MV V2 VTI: 32.2 cm Ao V2 VTI: 27.7 cm LV V1 max: 124.0 cm/sec TR max conner: 183.2 cm/sec LV V1 max P.2 mmHg TR max P.3 mmHg LV V1 mean P.7 mmHg LV V1 mean: 74.6 cm/sec LV V1 VTI: 27.2 cm Interpretation Summary Left ventricular systolic function is normal. The estimated ejection fraction is 65 %. Mild concentric left ventricular hypertrophy. Apical false tendon noted. Trivial mitral valve insufficiency. Mild tricuspid valve insufficiency. Trivial pulmonic valve insufficiency. Right ventricular systolic pressure estimated to be 20 mmHg. Diastolic function is indeterminate. Ordering Physician: Hansel Schaffer Referring Physician: Hansel Schaffer Performed By: Lane Persaud RCS 08/17/181835 Date Hansel Schaffer MD CC: Florian Juarez MD; Hansel Schaffer MD Date Dictated: 08/17/18 1428 Date Transcribed: 08/17/181835 Metal Painter: Signed BASIC METABOLIC Collected: 08/17/2018 Status: F Source: [place] PROFILE (BMP) 12:30 PM [facility] REPOSITORY TYPE CODE TESTS RESULT OUT OF RANGE REFERENCE UNITS LAB L501.0100 74-106 mg/dL High GLU 110 Result Comment: Fasting Glucose result from 100 to 125 mg/dL suggests IMPAIRED HOMEOSTASIS per A.D.A. criteria. Please note revised GLUCOSE reference range effective 2017. LAB L501.1000 7-18 mg/dL High BUN 25 LAB L501.1100 0.55-1.02 mg/dL High CREAT,SERUM 1.46 Result Comment: The validity of the calculated GFR AND GFRAA in patients over 70 years has not been determined. Clinical correlation is essential. LAB L501.1110 >60 mL/min Low EST GFR 37 Result Comment: Non- GFR Calc LAB L501.1115 >60 mL/min Low EST GFR - AA 44 Result Comment: GFR Calc LAB L501.1300 10-20 RATIO Normal BUN/CRE 17.1 LAB L501.2200 8.5-10.1 mg/dL CA Normal 9.2 LAB L501.5300 136-145 mmol/L NA Normal 137 LAB L501.5600 3.5-5.1 mmol/L K Normal 4.1 LAB L501.5900 98-107 mmol/L CL Normal 102 LAB L501.6100 21.0-32.0 mmol/L Normal CO2 28.0 LAB L501.6200 5-15 Normal GAP 7 Performed By: #### L500.2500 #### [facility] Laboratory [address] [place], [address] COMPREHENSIVE METABOLIC Collected: 08/06/2018 Status: F Source: [facility] 9:40 AM [facility] REPOSITORY Order Comment: NO VRO CHARGE 2ND DR ORDER TODAY. TYPE CODE TESTS RESULT OUT OF RANGE REFERENCE UNITS LAB L501.0100 74-106 mg/dL High GLU 120 Result Comment: Fasting Glucose result from 100 to 125 mg/dL suggests IMPAIRED HOMEOSTASIS per A.D.A. criteria. Please note revised GLUCOSE reference range effective 2017. LAB L501.1000 7-18 mg/dL High BUN 26 LAB L501.1100 0.55-1.02 mg/dL High CREAT,SERUM 1.22 Result Comment: The validity of the calculated GFR AND GFRAA in patients over 70 years has not been determined. Clinical correlation is essential. LAB L501.1110 >60 mL/min Low EST GFR 45 Result Comment: Non- GFR Calc LAB L501.1115 >60 mL/min Low EST GFR - AA 55 Result Comment: GFR Calc LAB L501.1300 10-20 RATIO High BUN/CRE 21.3 LAB L501.1500 6.4-8.2 g/dL T Normal PROT 7.2 LAB L501.1800 3.2-5.0 g/dL Normal ALB 3.7 LAB L501.1950 2.2-4.2 g/dL Normal GLOB 3.5 LAB L501.2000 0.9-2.4 RATIO Normal A/G 1.1 LAB L501.2200 8.5-10.1 mg/dL CA Normal 8.6 LAB L501.4100 15-37 U/L Normal AST 20 LAB L501.4305 45-117 U/L Normal ALK P 66 LAB L501.4405 13-56 U/L Normal ALT 23 LAB L501.4600 0.20-1.00 mg/dL T Normal BILI 0.50 LAB L501.5300 136-145 mmol/L NA Normal 139 LAB L501.5600 3.5-5.1 mmol/L K Normal 3.9 LAB L501.5900 98-107 mmol/L CL Normal 105 LAB L501.6100 21.0-32.0 mmol/L Normal CO2 25.0 LAB L501.6200 5-15 Normal GAP 9 Performed By: #### L500.4050, L501.9520 #### [facility] Laboratory [address] [place], [place], [id number] THYROID STIM HORMONE Collected: 08/06/2018 Status: F Source: [place] (TSH) 9:40 AM [facility] REPOSITORY Order Comment: NO VRO CHARGE 2ND DR ORDER TODAY. TYPE CODE TESTS RESULT OUT OF RANGE REFERENCE UNITS LAB L501.9520 0.358-3.74 uIU/mL Normal TSH 2.02 Performed By: #### L500.4050, L501.9520 #### [facility] Laboratory [address] [place], [place], [address] BASIC METABOLIC Collected: 08/06/2018 Status: F Source: [place] PROFILE (BMP) 9:34 AM [facility] REPOSITORY TYPE CODE TESTS RESULT OUT OF RANGE REFERENCE UNITS LAB L501.0100 74-106 mg/dL High GLU 118 Result Comment: Fasting Glucose result from 100 to 125 mg/dL suggests IMPAIRED HOMEOSTASIS per A.D.A. criteria. Please note revised GLUCOSE reference range effective 2017. LAB L501.1000 7-18 mg/dL High BUN 26 LAB L501.1100 0.55-1.02 mg/dL High CREAT,SERUM 1.20 Result Comment: The validity of the calculated GFR AND GFRAA in patients over 70 years has not been determined. Clinical correlation is essential. LAB L501.1110 >60 mL/min Low EST GFR 46 Result Comment: Non- GFR Calc LAB L501.1115 >60 mL/min Low EST GFR - AA 56 Result Comment: GFR Calc LAB L501.1300 10-20 RATIO High BUN/CRE 21.7 LAB L501.2200 8.5-10.1 mg/dL CA Normal 8.7 LAB L501.5300 136-145 mmol/L NA Normal 139 LAB L501.5600 3.5-5.1 mmol/L K Normal 4.0 LAB L501.5900 98-107 mmol/L CL Normal 105 LAB L501.6100 21.0-32.0 mmol/L Normal CO2 25.0 LAB L501.6200 5-15 Normal GAP 9 Performed By: #### L500.2500 #### [facility] Laboratory [address] [place], [address] CARDIOLOGY VISIT Observed: 07/30/2018 Status: F Source: [place] REPORT 1:29 PM [facility] REPOSITORY [facility] [address] [place] [address] OFFICE VISIT Date of Service: 07/30/18 MR#: [id number] Acct: [id number] Name: STEVE SAAVEDRA Rep #: [id number] : 1940 Provider: Hansel Schaffer MD Age/Sex: 77/F [place] [facility] [place]: Signed HPI HPI Details: STEVE SAAVEDRA, is a 77 F who presents to the office today for outpatient cardiovascular consultation per her request based on concerns of hypertension and a previous history of multiple CVAs. She states that she has been evaluated for and treated for hypertension in the past. Her medications have been adjusted recently with respect to her amlodipine dose being decreased to avoid significant hypotension. However she is still concerned about her blood pressure as she tracks her blood pressures at home and they have remains somewhat elevated. She states in the past she was on hydrochlorothiazide. She became hyponatremic and hypokalemic. She has not been back on a diuretic since that time. In the meantime she remains on her ARB, her calcium channel antagonist, and a beta-stefanie. She states that she has had 3 CVAs in the past. She wants to try and do everything she can to minimize the risk of recurrent CVAs as they have left her with some transient visual disturbances over time. She had a transthoracic echocardiogram performed at [facility] on 12/17/2013. According to the report her left ventricle was normal at the time with an LVEF of 65%. She had an agitated saline contrast performed which was negative. She also had a carotid artery duplex performed in 2006. She had only mild disease reported bilaterally at that time. She denies any ongoing issues of classic angina pectoris at rest or with exertion. She has had no obvious ongoing issues of acute CHF or pulmonary edema. There has been no near syncope or syncope. She had an ECG today. She is noted to have underlying sinus bradycardia with poor R wave progression and a nonspecific T wave abnormality. Intake Vital Signs07/30/18 Height 5 ft 2 in 07/30/18 Weight: 154 lb 07/30/18 Body Mass Index (BMI) 28.1 07/30/18 Blood Pressure 156/88 H Intake Visit Reasons: Self ref'd for HTN, Hx stroke, PFM pt Allergies escitalopram [From Lexapro] Allergy (Severe, Verified 07/30/18 11:18) parasthesis Sulfa (Sulfonamide Antibiotics) Allergy (Verified 07/30/18 11:18) Unknown verapamil HCl [From Covera-HS] Allergy (Verified 07/30/18 11:18) Other simvastatin [From Zocor] Adverse Reaction (Severe, Verified 07/30/18 11:18) Myalgias Medications Ubidecarenone/Vit E Acetate [Co Q-10 100 mg Softgel] 1 ea PO DAILY 03/02/17 [History Confirmed 07/30/18] B Complex with Vitamin C [B-Complex Plus Vitamin C] 1 ea PO DAILY #30 03/18/17 [Rx Confirmed 07/30/18] Cholecalciferol (VIT D3) [Vitamin D3] 1,000 unit PO BIDCM #60 tab 03/18/17 [Rx Confirmed 07/30/18] Senna [Senokot] 1 tab PO BID PRN PRN #30 tab 03/24/17 [Rx Confirmed 07/30/18] loratadine 10 mg tablet 10 mg PO QDAY 09/30/17 [History Confirmed 07/30/18] amlodipine 5 mg tablet 5 mg PO DAILY 07/30/18 [History Confirmed 07/30/18] atenolol 25 mg tablet 25 mg PO BID tab 07/30/18 [History Confirmed 07/30/18] clopidogrel 75 mg tablet 75 mg PO DAILY tab 07/30/18 [History Confirmed 07/30/18] esomeprazole magnesium 40 mg capsule,delayed release 40 mg PO DAILY 07/30/18 [History Confirmed 07/30/18] levothyroxine 50 mcg tablet 50 mcg PO DAILY 07/30/18 [History Confirmed 07/30/18] lorazepam 0.5 mg tablet 0.5 mg PO QHS PRN 07/30/18 [History Confirmed 07/30/18] losartan 100 mg tablet 100 mg PO DAILY 07/30/18 [History Confirmed 07/30/18] rosuvastatin 10 mg tablet 10 mg PO DAILY 07/30/18 [History Confirmed 07/30/18] spironolactone 25 mg tablet 25 mg PO DAILY #30 tab 07/30/18 [Rx Confirmed 07/30/18] [facility] Medical History Received intravenous tissue plasminogen activator (tPA) in emergency department (Chronic) Hyperlipidemia (Chronic) History of stroke (Chronic) HTN (hypertension) (Chronic) Cephalgia (Chronic) GERD (gastroesophageal reflux disease) (Chronic) Carpal tunnel syndrome of left wrist (Suspected) CVA (cerebral vascular accident) (Chronic) Hypothyroid (Chronic) Hypokalemia (Inactive) Hyponatremia (Inactive) Surgical History History of hysterectomy (Resolved) History of tonsillectomy (Resolved) History of tubal ligation (Resolved) Family History Father Heart disease Social History Smoking Status: Never smoker alcohol intake: never substance use type: does not use caffeine: Yes what type of physical activity do you participate in: walking seatbelt use: always do you feel safe at home: Yes additional social history: Loc-Retired ROS Const Const: Negative for fatigue, weakness, weight gain, weight loss, frequent falls or excessive sweating Eyes Eyes: Negative for change in vision, blurry vision or transient loss of vision ENT ENT: Positive for balance problems (patient ambulates with a cane); negative for dizziness Cardio Chest Pain: No Palpitations: No Edema: Bilateral (occasional) Muscle aches with walking: None Additional Details: Patient in for elevated BP systolic range 122-162, diastolic 58-70 Resp Respiratory: Negative for SOB with activity or SOB at rest GI GI: Negative vomiting or vomiting blood/hematemesis : Negative for hematuria Musc Musc: Positive for balance problems (patient ambulates with a cane) and joint pain (HX Arthritis); negative for muscle aches/ myalgia or muscle weakness Skin Skin: Negative non-healing lesions or rash Neuro Neuro: Negative for weakness, blurry vision, dizziness, lightheadedness, frequent falls or orthostatic symptoms Simon Hematologic/Lymphatic: Negative for easy bleeding Endo Endo: Negative for fatigue or excessive sweating Psych Psych: Negative for anxiety or depression Allergy Allergy/Immunology: Negative for hives, Negative for rash Cardiology Exam Const Appearance: cooperative, healthy appearing, comfortable, no acute distress, well developed and well groomed Nutritional Appearance: average body habitus Orientation: alert, awake and oriented x3 Head Head: normal to inspection, normocephalic and atraumatic Ears: hearing grossly normal bilaterally Nose: external nose normal Face and Sinus: face symmetric Mouth: oral mucosae normal Teeth and gingiva: fair dentition Eyes Eyelids: eyelids normal Conjunctivae: conjunctivae normal Pupils: PERRL EOM: EOM intact bilaterally Neck Neck: normal visual inspection and full ROM Carotids: normal carotid upstroke Chest Chest inspection: normal inspection of the chest and symmetric chest movement Auscultation: Bilateral: Clear to Auscultation Cardio Palpation: normal PMI Rate: regular rate Rhythm: regular rhythm Heart sounds: S1 normal and S2 normal GI GI: normal to inspection, bowel sounds present and soft Neuro General: alert, awake and oriented x3 Skin Skin: no rashes or lesions noted Extremities Pulses: Normal: Right Radial Pulse, Left Radial Pulse Lower Extremity Edema: None: Bilateral Psych Psychological: normal affect Assessment AND Plan 1. Essential hypertension I10 Plan At the present time with respect to her hypertension she may benefit from a diuretic. She does have concerns with respect to the possibility of recurrent hypo-natremia and hypokalemia. Thus it may be reasonable to attempt to use an alternative diuretic such as Spironolactone/Aldactone. This could be started in a low dose with a follow-up BMP. This may be beneficial for her underlying hypertension. Orders Orders: 2. Hyperlipidemia, unspecified hyperlipidemia type E78.5 Plan She is on lipid-lowering medication. She is being followed by her primary care physician for this. 3. CVA (cerebral vascular accident) I63.9 Plan She has had 3 CVAs per her report. She does not appear to have obvious carotid artery bruits on examination. However she did have documented mild disease in the past. She does not recall this being reassessed. Thus she will be asked to have a carotid artery duplex study performed. Plan Detail Other Orders Orders: Other Medications New: Additional Comments She will will proceed with the aforementioned medical therapy and outpatient follow-up. She was asked to continue to follow with her primary care physician for her hypertension as well with respect to further follow-up and adjustments. The above was discussed with the patient and her spouse. They are agreeable to this approach. Thank you for allowing me to participate in the care of your patient. Please don't hesitate to call if any issues arise. This note was generated using a voice recognition system and there may be incorrect words, spelling or punctuation that were not noted when reviewing the office note prior to saving. Follow Up 3 Months Coding Level of Care Code Off vis,new,level 4 Diagnoses Essential hypertension I10 Hypertension type: essential hypertension Hyperlipidemia, unspecified hyperlipidemia type E78.5 Hyperlipidemia type: unspecified CVA (cerebral vascular accident) I63.9 Laterality of affected vessel: right Coding Level of Care Code Off vis,new,level 4 Diagnoses Essential hypertension I10 Hypertension type: essential hypertension Hyperlipidemia, unspecified hyperlipidemia type E78.5 Hyperlipidemia type: unspecified CVA (cerebral vascular accident) I63.9 Laterality of affected vessel: right 07/30/18 1329 <Electronically signed by Hansel Schaffer MD> Date Hansel Briceign Signature: Date (if applicable) CC: Florian Juarez MD 12 LEAD EKG PERFORMED Observed: 07/30/2018 Status: F [place] [facility] [place] AM [facility] REPOSITORY [facility] [address] [place] [address] 12 Lead EKG performed by [facility] 07/30/18 1111 MR#: [id number] Acct: [id number] Name: STEVE SAAVEDRA Rep #: [id number] : 1940 77 From: Hansel Schaffer MD Attending Dr: Hansel Schaffer MD Status: DEP AMB Ordering Dr: Hansel Schaffer MD Date: 07/30/18 [place] [facility] [place] Sex: F C Admitted[place] [facility] Lead E[place] performed [place] [facility] ECG Report Interpretation Sinus Bradycardia Poor R-wave progression Nonspecific T-abnormality. ABNORMAL Electronically signed on 07/30/2018 at 13:47 by Hansel Schafferwood Software Version [id number] 07/30/18 1348 Date Hansel Schaffer MD CC: Florian Juarez MD Date Dictated: 07/30/18 1111 Date Transcribed: 07/30/18 1111 Metal Painter: PM Signed COMPREHENSIVE METABOLIC Collected: 06/19/2018 Status: F Source: [place] PROFIL 11:02 AM [facility] REPOSITORY Order Comment: Order Date: 06/16/18 Order Info: 0786-1 - CMP TYPE CODE TESTS RESULT OUT OF RANGE REFERENCE UNITS LAB L501.0100 74-106 mg/dL Normal GLU 94 Result Comment: Please note revised GLUCOSE reference range effective 2017. LAB L501.1000 7-18 mg/dL High BUN 23 LAB L501.1100 0.55-1.02 mg/dL High CREAT,SERUM 1.17 Result Comment: The validity of the calculated GFR AND GFRAA in patients over 70 years has not been determined. Clinical correlation is essential. LAB L501.1110 >60 mL/min Low EST GFR 47 Result Comment: Non- GFR Calc LAB L501.1115 >60 mL/min Low EST GFR - AA 57 Result Comment: GFR Calc LAB L501.1300 10-20 RATIO Normal BUN/CRE 19.7 LAB L501.1500 6.4-8.2 g/dL T Normal PROT 7.5 LAB L501.1800 3.2-5.0 g/dL Normal ALB 3.8 LAB L501.1950 2.2-4.2 g/dL Normal GLOB 3.7 LAB L501.2000 0.9-2.4 RATIO Normal A/G 1.0 LAB L501.2200 8.5-10.1 mg/dL CA Normal 8.9 LAB L501.4100 15-37 U/L Normal AST 23 LAB L501.4305 45-117 U/L Normal ALK P 68 LAB L501.4405 13-56 U/L Normal ALT 25 LAB L501.4600 0.20-1.00 mg/dL T Normal BILI 0.50 LAB L501.5300 136-145 mmol/L NA Normal 140 LAB L501.5600 3.5-5.1 mmol/L K Normal 4.0 LAB L501.5900 98-107 mmol/L CL Normal 105 LAB L501.6100 21.0-32.0 mmol/L Normal CO2 25.0 LAB L501.6200 5-15 Normal GAP 10 Performed By: #### L500.4050 #### [facility] Laboratory [address] [place], [address] DEXA BONE DENSITY Observed: 04/16/2018 Status: F Source: [place] STUDY 12:25 PM [facility] REPOSITORY [facility] Imaging Services [address] [place] [address] Dexa Bone Density Study MR#: [id number] Acct: [id number] Name: STEVE SAAVEDRA Rep #: [id number] : 1940 F 77 From: Deion Mora MD PCP: Florian Juarez MD Status: REG CLI Study: Dexa Bone Density Study Date of Exam: 04/16/18 Exam# [id number] Ordering Dr: Siva Juarez MD STUDY: DUAL ENERGY X-RAY ABSORPTIOMETRY / DXA REASON FOR EXAM: Female, 77 years old. The patient is postmenopausal. Loss of height. TECHNIQUE: Bone Mineral Density (BMD) measurements of lumbar spine and bilateral hips were obtained. COMPARISON: Comparison is made with prior study dated October 10, 2015. FINDINGS: Lumbar Spine (L1-L4): g/cm2 (0.994) / T-score (-1.5) / Z-score (0.3) Findings are suggestive of osteopenia with a moderate fracture risk. Increased kyphosis. Left Femur Total: g/cm2 (0.75 to) / T-score (-2.0) / Z-score (-0.1) Left Femoral Neck: g/cm2 (0.729) / T-score (-2.2) / Z- score (-0.1) Right Femur Total: g/cm2 (0.803) / T-score (-1.6) / Z- score (0.3) Right Femoral Neck: g/cm2 (0.708) / T-score (-2.4) / Z-score (-0.3) The T-Scores on the most recent prior examination were: Lumbar Spine (L1-L4): There has been improvement of bone density since the previous examination. Left Femur Total: which represents a worsening of 10.6%. Right Femur Total: which represents a worsening of 10.1%. BD/Dexa Bone Density Study IMPRESSION: The patient is considered osteopenic as outlined below according to World Tee Organization (WHO) criteria with a moderate fracture risk. There has been worsening of bone density since the previous examination. Reference Information: The T-score is the number of standard deviations above or below the standard which is normal for young adults at their peak bone mineral density. The World Health Organization (WHO) interprets the T-scores as follows: Above -1 Normal bone density Between -1 and -2.5 Osteopenia Equal to / or below -2.5 Osteoporosis As a practical clinical guideline, osteopenia may be graded as follows: Mild -1 through -1.5 Moderate -1.6 through -2.0 Severe -2.1 through -2.4 The Z-score is the number of standard deviations above or below age-matched controls. A Z-score of less than -1.5 would be considered abnormal. References: 1. NIH Osteoporosis and Related Bone Diseases http://www.osteo.org 2. International Society for Clinical Densitometry http://www.iscd.org 3. National Osteoporosis Foundation http://www.nof.org Electronically Signed: Deion Mora MD at 15:18 EDT Tel [phone], Service support , CC: Florian Juarez MD Metal Painter: Signed BASIC METABOLIC Collected: 03/10/2018 Status: F Source: [place] PROFILE (BMP) 7:54 AM [facility] REPOSITORY Order Comment: Order Date: 02/17/18 Order Info: 0667-1 - BMP Order Info: 32843-2 - LIPID Order Info: 3016-3 - TSH PATIENT NOT FASTING PER DOCTOR TYPE CODE TESTS RESULT OUT OF RANGE REFERENCE UNITS LAB L501.0100 74-106 mg/dL Normal GLU 75 Result Comment: Please note revised GLUCOSE reference range effective 2017. LAB L501.1000 7-18 mg/dL High BUN 20 LAB L501.1100 0.55-1.02 mg/dL High CREAT,SERUM 1.12 Result Comment: The validity of the calculated GFR AND GFRAA in patients over 70 years has not been determined. Clinical correlation is essential. LAB L501.1110 >60 mL/min Low EST GFR 50 Result Comment: Non- GFR Calc LAB L501.1115 >60 mL/min Normal EST GFR - AA 60 Result Comment: GFR Calc LAB L501.1300 10-20 RATIO Normal BUN/CRE 17.9 LAB L501.2200 8.5-10.1 mg/dL CA Normal 8.5 LAB L501.5300 136-145 mmol/L NA Normal 142 LAB L501.5600 3.5-5.1 mmol/L K Normal 3.9 LAB L501.5900 98-107 mmol/L CL Normal 106 LAB L501.6100 21.0-32.0 mmol/L Normal CO2 28.0 LAB L501.6200 5-15 Normal GAP 8 Performed By: #### L500.2500, L500.4100, L501.9520 #### [facility] [address], [address] LIPID PROFILE Collected: 03/10/2018 Status: F Source: CHATO 7:54 AM [facility] REPOSITORY Order Comment: Order Date: 02/17/18 Order Info: 0667-1 - BMP Order Info: 12985-9 - LIPID Order Info: 3016-3 - TSH PATIENT NOT FASTING PER DOCTOR TYPE CODE TESTS RESULT OUT OF RANGE REFERENCE UNITS LAB L501.4900 200 mg/dL Normal CHOL 172 Result Comment: <200 mg/dL Desirable 200-240 mg/dL Borderline >240 mg/dL High Risk LAB L501.5000 mg/dL Normal TRIG 78 Result Comment: The drugs N-Acetylcysteine and Metamizole may falsely depress this assay. Serum Triglycerides Reference Interval Normal <150 mg/dL Borderline high 150 - 199 mg/dL High 200 - 499 mg/dL Very High > or = 500 mg/dL LAB L501.6400 mg/dL Normal HDL 68 Result Comment: The drugs N-Acetylcysteine and Metamizole may falsely depress this assay. Reference Range HDL <40 mg/dL Low HDL Cholesterol HDL >or= 60 mg/dL High HDL Cholesterol LAB L501.6500 0-130 mg/dL Normal LDL 88 LAB L501.6600 5-40 mg/dL Normal VLDL 16 Performed By: #### L500.2500, L500.4100, L501.9520 #### [facility] [address] [place], [place], [address] THYROID STIM HORMONE Collected: 03/10/2018 Status: F Source: CHATO (TSH) 7:54 AM [facility] REPOSITORY Order Comment: Order Date: 02/17/18 Order Info: 0667-1 - BMP Order Info: 37710-7 - LIPID Order Info: 3016-3 - TSH PATIENT NOT FASTING PER DOCTOR TYPE CODE TESTS RESULT OUT OF RANGE REFERENCE UNITS LAB L501.9520 0.358-3.74 uIU/mL Normal TSH 2.08 Performed By: #### L500.2500, L500.4100, L501.9520 #### [facility] [address] [place], [address] BASIC METABOLIC Collected: 12/31/2017 Status: F Source: CHATO PROFILE (BMP) 3:30 PM [facility] REPOSITORY Order Comment: Order Date: 12/31/17 Order Info: 0667-1 - BMP TYPE CODE TESTS RESULT OUT OF RANGE REFERENCE UNITS LAB L501.0100 74-106 mg/dL Normal GLU 88 Result Comment: Please note revised GLUCOSE reference range effective 2017. LAB L501.1000 7-18 mg/dL Normal BUN 17 LAB L501.1100 0.55-1.02 mg/dL High CREAT,SERUM 1.28 Result Comment: The validity of the calculated GFR AND GFRAA in patients over 70 years has not been determined. Clinical correlation is essential. LAB L501.1110 >60 mL/min Low EST GFR 43 Result Comment: Non- GFR Calc LAB L501.1115 >60 mL/min Low EST GFR - AA 52 Result Comment: GFR Calc LAB L501.1300 10-20 RATIO Normal BUN/CRE 13.3 LAB L501.2200 8.5-10.1 mg/dL CA Normal 9.1 LAB L501.5300 136-145 mmol/L NA Normal 139 LAB L501.5600 3.5-5.1 mmol/L K Normal 3.8 LAB L501.5900 98-107 mmol/L CL Normal 104 LAB L501.6100 21.0-32.0 mmol/L Normal CO2 28.0 LAB L501.6200 5-15 Normal GAP 7 Performed By: #### L500.2500 #### [facility] [address] [place], [address] BASIC METABOLIC Collected: 12/12/2017 Status: F Source: CHATO PROFILE (BMP) 10:32 AM [facility] REPOSITORY Order Comment: Order Date: 12/05/17 Order Info: 0667-1 - BMP TYPE CODE TESTS RESULT OUT OF RANGE REFERENCE UNITS LAB L501.0100 74-106 mg/dL High GLU 115 Result Comment: Fasting Glucose result from 100 to 125 mg/dL suggests IMPAIRED HOMEOSTASIS per A.D.A. criteria. Please note revised GLUCOSE reference range effective 2017. LAB L501.1000 7-18 mg/dL High BUN 29 LAB L501.1100 0.55-1.02 mg/dL High CREAT,SERUM 1.50 Result Comment: The validity of the calculated GFR AND GFRAA in patients over 70 years has not been determined. Clinical correlation is essential. LAB L501.1110 >60 mL/min Low EST GFR 36 Result Comment: Non- GFR Calc LAB L501.1115 >60 mL/min Low EST GFR - AA 43 Result Comment: GFR Calc LAB L501.1300 10-20 RATIO Normal BUN/CRE 19.3 LAB L501.2200 8.5-10.1 mg/dL CA Normal 9.1 LAB L501.5300 136-145 mmol/L Low NA 135 LAB L501.5600 3.5-5.1 mmol/L K Normal 4.1 LAB L501.5900 98-107 mmol/L CL Normal 100 LAB L501.6100 21.0-32.0 mmol/L Normal CO2 28.0 LAB L501.6200 5-15 Normal GAP 7 Performed By: #### L500.2500 #### [facility] [address] [place], [address] KIDNEY AND BLADDER Observed: 11/28/2017 Status: F Source: CHATO 7:59 AM [facility] REPOSITORY [facility] [address] [place] [address] Kidney and Bladder MR#: [id number] Acct: [id number] Name: STEVE SAAVEDRA Rep #: [id number] : [id number] F 77 From: Deion Mora MD PCP: Florian Juarez MD Status: REG CLI Study: Kidney and Bladder Date of Exam: 11/28/17 Exam# [id number] Ordering Dr: Siva Juarez MD STUDY: RENAL ULTRASOUND - COMPLETE REASON FOR EXAM: Female, 77 years old. Renal failure. TECHNIQUE: Ultrasound evaluation of the kidneys was performed with real-time and static mortensen-scale imaging. COMPARISON: Comparison is made with prior examination dated February 03, 2009. FINDINGS: RIGHT KIDNEY: Normal location of the right kidney, which is normal in size. The right kidney measures 12.7 cm x 4.6 cm x 5.4 cm. There is a normal cortex of the right kidney. The renal cortex measures 1.5 cm. There is a 4.3 cm x 4.2 cm x 4.2 cm cyst in the lower pole. There are no right renal calculi. There is no right hydronephrosis. DISTAL RIGHT URETER: There is non-visualization of the distal right ureter. There is no demonstrated right ureterovesical junction calculus. There is no demonstrated right ureteral jet. LEFT KIDNEY: Normal location of the left kidney, which is normal in size. The left kidney measures 13.4 cm x 4.6 cm x 4.7 cm. There is a normal cortex of the left kidney. The renal cortex measures 1.3 cm. 2 cysts are seen. The larger measures 7.8 cm x 5.2 cm x 4.6 sinus. There are no left renal calculi. There is no left hydronephrosis. DISTAL LEFT URETER: There is non-visualization of the distal left ureter. There is no demonstrated left ureterovesical junction calculus. There is no demonstrated left ureteral jet. BLADDER: The bladder was empty at the time of the examination. US/Kidney and Bladder IMPRESSION: Bilateral renal cysts. Electronically Signed: Deion Mora MD at 13:35 EST Tel [phone], Service support , CC: Florian Juarez MD Metal Painter: Signed ALLERGIES ALLERGIES DATE TYPE / CODE NAME / CODE REACTION SEVERITY SOURCE 11/02/2018 Drug verapamil Other Unknown [place] Allergy/416 HCl/[id number](R Community 684027([facility] XNORM) [facility] ED CT) Repository 11/02/2018 Drug Sulfa Unknown Unknown [place] Allergy/416 (Sulfonamide Community 845265([facility] Antibiotics)/F[address] [facility] [address]) 4487233(RXNORM) Repository 11/02/2018 Drug simvastatin/F006 MYALGIAS SV [place] Allergy/416 868472(RXNORM) Community 611192([facility] ED CT) Repository 11/02/2018 Drug escitalopram/F00 parasthesis SV [place] Allergy/485 9530388(RXNORM) Formerly [facility] 881995([facility] ED CT) Repository ENCOUNTERS ENCOUNTERS ADMIT/DISCHARGE ACCOUNT ADMITTING ENCOUNTER LOCATION SOURCE NUMBER CLASS 11/02/2018 [id number] [place] [facility] ing:LAB Repository 11/02/2018/ [id number] Ambulatory BMSBuilding:B [place] 9 2 [facility] Repository 10/12/2018/ [id number] Ambulatory BMSBuilding:B [place] 8 6 MS.[facility] Repository 10/12/2018 [id number] Ambulatory [place] 2 [facility] ing:OPBI Repository 09/07/2018 [id number] Ambulatory [place] 1 [facility] ing:LAB Repository 08/17/2018 [id number] Ambulatory BMSBuilding:B [place] 7 MS.[facility] Repository 08/17/2018 [id number] Ambulatory [place] 0 [facility] ing:CVS Repository 08/06/2018 [id number] Ambulatory [place] 3 [facility] ing:LAB Repository 07/30/2018/ [id number] Ambulatory BMSBuilding:B [place] 8 1 [facility] Repository 07/30/2018 [id number] Ambulatory BMSBuilding:B [place] 2 [facility] Repository 06/19/2018 [id number] Ambulatory [place] 3 [facility] ing:MFPLAB Repository 04/16/2018 [id number] Ambulatory [place] 1 [facility] ing:OPBD Repository 03/10/2018 [id number] Ambulatory [place] 5 [facility] ing:MTLAB Repository 12/31/2017 [id number] [place] [facility] ing:MFPLAB Repository 12/12/2017 [id number] Ambulatory [place] [facility] ing:LAB Repository 11/28/2017 [id number] Ambulatory [place] 5 [facility] ing:[facility] Repository PAYERS PAYERS ENCOUNTER GUARANTOR PAYER SUBSCRIBER SOURCE 11/02/2018 LOC [place] STEVE J [place] [id number] N Insurance:MEDICARE SPANGLERDOB: [facility] [id number] Number: Repository [address]Anb: 330 [id number] [phone] () Date:2018-11-02 11/02/2018 Secondary LOC [place] Insurance[facility] [id number] Hospital BENEFITPolicy Number: Repository [id number] Date:2494-32-11HG [address] [address]MT: 11/02/2018 Tertiary NOT GIVENUNK [place] Insurance:SELF PAY [facility] Number: Effective Repository Date:2018-11-02 11/02/2018 STEVE J Primary STEVE J [place] [id number] N Insurance:MEDICARE SPANGLERDOB: [facility] [id number], [place] Number: Repository [address]Zho: 330 [id number] [phone] () Date:2018-07-30 11/02/2018 Secondary LOC T [place] Insurance[facility]: [facility] [id number] Hospital BENEFITPolicy Number: Repository [id number] Date:4128-10-81[address], [place] [address]BI: 11/02/2018 Tertiary NOT GIVENUNK [place] Insurance:SELF PAY [facility] Number: Effective Repository Date:2018-10-30 10/12/2018 LOC [place] Primary STEVE J [place] [id number] N Insurance:MEDICARE SPANGLERDOB: [facility] PART A [facility] [id number] Number: Repository [address]Jmj: 330 [id number] [phone] (HP) Date:2018-07-17 10/12/2018 Secondary LOC [place] Insurance:[facility]: [facility] [id number] Hospital BENEFITPolicy Number: Repository [id number] Date:5181-36-95[address], [place] [address]QW: 10/12/2018 Tertiary NOT GIVENUNK [place] Insurance:SELF PAY [facility] Number: Effective Repository Date:2018-10-12 10/12/2018 LOC [place] Primary STEVE J [place] [id number] N Insurance:MEDICARE SPANGLERDOB: [facility] PART A [facility] [id number] Number: Repository [address]Yrw: 330 [id number] [phone] () Date:2018-07-17 10/12/2018 Secondary LOC [place] Insurance:[facility]: [facility] [id number] Hospital BENEFITPolicy Number: Repository [id number] Date:8319-72-85Z[address], [place] [address]TT: 10/12/2018 Tertiary NOT GIVENUNK [place] Insurance:SELF PAY [facility] Number: Effective Repository Date:2018-07-17 09/07/2018 LOC [place] Primary STEVE J [place] [id number] N Insurance:MEDICARE SPANGLERDOB: [facility] PART A [facility] [id number] Number: Repository [address]Jcg: 330 [id number] [phone] () Date:2018-08-31 09/07/2018 Secondary LCO T [place] Insurance:[facility]: [facility] [id number] Hospital BENEFITPolicy Number: Repository [id number] Date:8789-07-37CM [address] [place] [address]CU: 09/07/2018 Tertiary NOT GIVENUNK [place] Insurance:SELF PAY [facility] Number: Effective Repository Date:2018-08-31 08/17/2018 LOC [place] Primary STEVE J [place] [id number] N Insurance:MEDICARE SPANGLERDOB: Community [place] PART A [facility] [id number] [place] Number: Repository [address]Xwu: 330 [id number] [phone] () Date:2018-07-30 08/17/2018 Secondary LOC T [place] Insurance:[facility]: [facility] [id number] Hospital BENEFITPolicy Number: Repository [id number] Date:4265-35-02BQ [address], [place] [address]BB: 08/17/2018 Tertiary NOT GIVENUNK [place] Insurance:SELF PAY [facility] Number: Effective Repository Date:2018-08-17 08/17/2018 LOC T Primary STEVE J [place] [id number] N Insurance:MEDICARE SPANGLERDOB: Community [place] PART A [facility] [id number], [place] Number: Repository [id number]: 330 [id number] [phone] () Date:2018-07-30 08/17/2018 Secondary LOC T [place] Insurance:[facility]: [facility] [id number] Hospital BENEFITPolicy Number: Repository [id number] Date:2542-32-28PZ [address] [facility], [place] [address]BF: 08/17/2018 Tertiary NOT GIVENUNK [place] Insurance:SELF PAY [facility] Number: Effective Repository Date:2018-07-30 08/06/2018 LOC [place] Primary STEVE J [place] [id number] N Insurance:MEDICARE SPANGLERDOB: [facility] PART A [facility] [id number], [place] Number: Repository [address]Tqb: 330 [id number] [phone] () Date:2018-08-06 08/06/2018 Secondary LOC T [place] Insurance:[facility]: [facility] [id number] Hospital BENEFITPolicy Number: Repository [id number] Date:1377-91-49VO [facility] [address], [place] [address]OD: 08/06/2018 Tertiary NOT GIVENUNK [place] Insurance:SELF PAY [facility] Number: Effective Repository Date:2018-08-06 07/30/2018 LOC [place] Primary STEVE J [place] [id number] N Insurance:MEDICARE SPANGLERDOB: [facility] PART A [facility] [id number], [place] Number: Repository [address]Ezp: 330 [id number] [phone] () Date:2018-07-02 07/30/2018 Secondary LOC T [place] Insurance:[facility]: [facility] [id number] Hospital BENEFITPolicy Number: Repository [id number] Date:7196-89-12AR [address], [place] [address]AL: 07/30/2018 Tertiary NOT GIVENUNK [place] Insurance:SELF PAY [facility] Number: Effective Repository Date:2018-07-30 07/30/2018 LOC [place] Primary STEVE J [place] [id number] N Insurance:MEDICARE SPANGLERDOB: [facility] PART A [facility] [id number], [place] Number: Repository [address]Mis: 330 [id number] [phone] (HP) Date:2018-07-30 07/30/2018 Secondary LOC T [place] Insurance:[facility]ENTER[facility]: [facility] [id number] Hospital BENEFITPolicy Number: Repository [id number] Date:6123-39-89GY [address], [place] [address]WM: 07/30/2018 Tertiary NOT GIVENUNK [place] Insurance:SELF PAY [facility] Number: Effective Repository Date:2018-07-30 06/19/2018 LOC [place] Primary STEVE J [place] [id number] N Insurance:MEDICARE SPANGLERDOB: [facility] A [facility] [id number], [place] Number: Repository [address]Fbp: 330 [id number] [phone] () Date:2018-06-19 06/19/2018 Secondary LOC T [place] Insurance:[facility] CENTERERB: [facility] [id number] Hospital BENEFITPolicy Number: Repository [id number] Date:0572-92-34OF [address], [place] [address]LO: 06/19/2018 Tertiary NOT GIVENUNK [place] Insurance:SELF PAY [facility] Number: Effective Repository Date:2018-06-19 04/16/2018 LOC T Primary STEVE J [place] [id number] N Insurance:MEDICARE SPANGLERDOB: [facility] A [facility] [id number], [place] Number: Repository [address]Mrp: 330 [id number] [phone] () Date:2018-04-08 04/16/2018 Secondary LOC T [place] Insurance:[facility]: [facility] [id number] Hospital BENEFITPolic Number: Repository [id number] Date:0655-34-01KO [address], [place] [address]VM: 04/16/2018 Tertiary NOT GIVENUNK [place] Insurance:SELF PAY [facility] Number: Effective Repository Date:2018-04-08 03/10/2018 LOC [place] Primary STEVE Reis [id number] N Insurance:MEDICARE SPANGLERDOB: Community [place] PART A [facility] [id number], [place] Number: Repository [address]Nnt: [id number] [phone] Date:2018-03-10 () 03/10/2018 Secondary LOC Flores [place] Insurance:[place] SPANGLERDOB: [facility] [id number] Hospital BENEFITPolicy Number: Repository [id number] Date:4246-28-04BK [address], [place] [address]YV: 03/10/2018 Tertiary NOT GIVENUNK [place] Insurance:SELF PAY [facility] Number: Effective Repository Date:2018-03-10 12/31/2017 LOC [place] Primary STEVE Reis [id number] N Insurance:MEDICARE SPANGLERDOB: Community [place] PART A [facility] [id number] [place] Number: Repository [address]Ypv: [id number] [phone] Date:2017-12-31 () 12/31/2017 Secondary LOC Flores [place] Insurance:[facility]: [facility] [id number] Hospital BENEFITPolicy Number: Repository [id number] Date:1963-99-03NR [address], [place] [address]ZL: 12/31/2017 Tertiary NOT GIVENUNK [place] Insurance:SELF PAY [facility] Number: Effective Repository Date:2017-12-31 12/12/2017 LOC [place] Primary STEVE Reis [id number] N Insurance:MEDICARE SPANGLERDOB: [facility] PART A [facility] [id number] [facility] Number: Repository [address]Xpk: [id number] [phone] Date:2017-12-12 (HP) 12/12/2017 Secondary LOC Flores [place] Insurance:[place] SPANERDOB: [facility] [id number] Hospital BENEFITPolicy Number: Repository [id number] Date:5105-46-70AH [place] [address]TA: 12/12/2017 Tertiary NOT GIVENUNK [place] Insurance:SELF PAY [facility] Number: Effective Repository Date:2017-12-12 11/28/2017 LOC [place] Primary STEVE J [place] [id number] N Insurance:MEDICARE SPANGLERDOB: [facility] PART A [facility] [id number], [place] Number: Repository [id number]: [id number] [phone] Date:2017-11-254 () 11/28/2017 Secondary LOC [place] Insurance[facility]: [facility] [id number] Hospital BENEFITPolicy Number: Repository [id number] Date:5315-63-23[address] [address]PX: 11/28/2017 Tertiary NOT GIVENUNK [place] Insurance:SELF PAY [facility] Number: Effective Repository Date:2017-11-25
== END ==
PROVIDERS: Family Provider Family Medicine; PCP Family Medicine; Referring Provider Nurse Practitioner Family; Visit Provider Nurse Practitioner Family
DX: I10 Essential (primary) hypertension (principal); E78.5 Hyperlipidemia, unspecified; Z86.73 Personal history of transient ischemic attack (TIA), and cerebral infarction without residual deficits
CPT/HCPCS: 36415; 80048

== ENCOUNTER → 2018-11-17 11:03 | Outpatient (CLI) | payer MEDICARE, OTHER, SELFPAY ==
[2018-11-02 11:38] VITALS: BMI 28.5
[2018-11-17 11:57] LABS: Anion Gap 6 (5-15); BUN 25 mg/dL (7-18); BUN/Creat Ratio 19.4 RATIO (10-20); Calcium,Total 8.4 mg/dL (8.5-10.1); Chloride 108 mmol/L (98-107); Creatinine, Serum 1.29 mg/dL (0.55-1.02); EST Glomerular Filtration Rate 42 mL/min (>60); Est Glom Filt Rate - Afr Amer 51 mL/min (>60); Glucose 89 mg/dL (74-106); Potassium 4.2 mmol/L (3.5-5.1); Sodium Level 139 mmol/L (136-145)
== END ==
PROVIDERS: Family Provider Family Medicine; PCP Family Medicine; Referring Provider Nurse Practitioner Family; Visit Provider Nurse Practitioner Family
DX: I10 Essential (primary) hypertension (principal); E87.6 Hypokalemia; R79.89 Other specified abnormal findings of blood chemistry
CPT/HCPCS: 36415; 80048

== ENCOUNTER → 2018-11-23 08:32 | Outpatient (CLI) | payer MEDICARE, OTHER, SELFPAY ==
[2018-11-02 11:38] VITALS: BMI 28.5
[2018-11-23 10:58] LABS: Vitamin D,25 Hydroxy 40.8 ng/mL (29.95-100.01)
[2018-11-23 11:04] LABS: Cholesterol 168 mg/dL (200); High Density Lipoprotein 65 mg/dL; Thyroid Stim Hormone (TSH) 1.69 uIU/mL (0.358-3.74); Triglycerides 76 mg/dL; Very Low Density Lipoprotein 15 mg/dL (5-40)
== END ==
PROVIDERS: Family Provider Family Medicine; PCP Family Medicine; Referring Provider Family Medicine; Visit Provider Family Medicine
DX: E78.00 Pure hypercholesterolemia, unspecified (principal); E55.9 Vitamin D deficiency, unspecified; E03.9 Hypothyroidism, unspecified
CPT/HCPCS: 36415; 80061; 82306; 84443

== ENCOUNTER → 2019-02-23 | Outpatient (CLI) | payer MEDICARE, OTHER, SELFPAY ==
[2018-11-02 11:38] VITALS: BMI 28.5
[2019-02-23 18:03] LABS: Anion Gap 6 (5-15); BUN 24 mg/dL (7-18); Calcium,Total 8.8 mg/dL (8.5-10.1); Chloride 106 mmol/L (98-107); EST Glomerular Filtration Rate 36 mL/min (>60); Est Glom Filt Rate - Afr Amer 43 mL/min (>60); Glucose 89 mg/dL (74-106); Potassium 4.6 mmol/L (3.5-5.1); Sodium Level 139 mmol/L (136-145)
== END | disposition home or self-care (01) ==
LOC: MFPLAB 14:45
PROVIDERS: Family Provider Family Medicine; PCP Family Medicine; Visit Provider Family Medicine
DX: N19 Unspecified kidney failure (principal)
CPT/HCPCS: 36415; 80048

== ENCOUNTER → 2019-03-18 | Outpatient (CLI) | payer MEDICARE, OTHER, SELFPAY ==
[2018-11-02 11:38] VITALS: BMI 28.5
[2019-03-18 17:36] LABS: Anion Gap 9 (5-15); BUN 22 mg/dL (7-18); BUN/Creat Ratio 14.5 RATIO (10-20); Calcium,Total 8.4 mg/dL (8.5-10.1); Chloride 106 mmol/L (98-107); Creatinine, Serum 1.52 mg/dL (0.55-1.02); EST Glomerular Filtration Rate 35 mL/min (>60); Est Glom Filt Rate - Afr Amer 42 mL/min (>60); Glucose 114 mg/dL (74-106); Potassium 4.2 mmol/L (3.5-5.1); Sodium Level 141 mmol/L (136-145)
== END | disposition home or self-care (01) ==
LOC: MFPLAB 15:32
PROVIDERS: Family Provider Family Medicine; PCP Family Medicine; Referring Provider Family Medicine; Visit Provider Family Medicine
DX: N19 Unspecified kidney failure (principal)
CPT/HCPCS: 36415; 80048

== ENCOUNTER → 2019-05-18 | Outpatient (CLI) | payer MEDICARE, OTHER, SELFPAY ==
[2019-05-04 07:19] VITALS: BMI 29.5
[2019-05-18 16:49] LABS: Anion Gap 8 (5-15); BUN 26 mg/dL (7-18); BUN/Creat Ratio 19.5 RATIO (10-20); Calcium,Total 8.7 mg/dL (8.5-10.1); Chloride 107 mmol/L (98-107); Creatinine, Serum 1.33 mg/dL (0.55-1.02); EST Glomerular Filtration Rate 41 mL/min (>60); Est Glom Filt Rate - Afr Amer 49 mL/min (>60); Glucose 111 mg/dL (74-106); Potassium 4.2 mmol/L (3.5-5.1); Sodium Level 142 mmol/L (136-145)
== END | disposition home or self-care (01) ==
LOC: LAB 14:18
PROVIDERS: Nurse Practitioner Family; Family Provider Family Medicine; PCP Family Medicine; Referring Provider Internal Medicine Cardiovascular Disease; Visit Provider Internal Medicine Cardiovascular Disease
DX: E78.5 Hyperlipidemia, unspecified (principal); I10 Essential (primary) hypertension
CPT/HCPCS: 36415; 80048

== ENCOUNTER → 2019-05-27 | Outpatient (CLI) | payer MEDICARE, OTHER, SELFPAY ==
[2019-05-04 07:19] VITALS: BMI 29.5
[2019-05-27 12:26] LABS: Vitamin D,25 Hydroxy 54.3 ng/mL (29.95-100.01)
[2019-05-27 12:30] LABS: Thyroid Stim Hormone (TSH) 1.19 uIU/mL (0.358-3.74)
== END | disposition home or self-care (01) ==
LOC: MFPLAB 11:05
PROVIDERS: Family Provider Family Medicine; PCP Family Medicine; Referring Provider Family Medicine; Visit Provider Family Medicine
DX: E03.9 Hypothyroidism, unspecified (principal); E55.9 Vitamin D deficiency, unspecified
CPT/HCPCS: 36415; 82306; 84443

== ENCOUNTER → 2019-08-17 13:47 | Outpatient (CLI) | payer MEDICARE, OTHER, SELFPAY ==
[2019-05-04 07:19] VITALS: BMI 29.5
[2019-08-17 15:11] LABS: Hematocrit 38.6 % (37-47); Hemoglobin 12.3 g/dL (12.0-15.0); Mean Corp Hgb Conc 31.9 g/dL (32-36); Mean Corpuscular Hgb 28.5 pg (27.0-32.0); Mean Corpuscular Volume 89.4 fL (81-99); Mean Platelet Vol. 10.2 fl (6.2-12.0); Platelet Count 160 K/mm3 (150-450); RBC Distribution Width CV 12.5 % (11.6-14.6); RBC Distribution Width SD 41.1 fl (35.1-43.9); Red Blood Count 4.32 M/mm3 (4.2-5.4); White Blood Count 5.9 K/mm3 (4.4-11.0)
[2019-08-17 15:43] LABS: Vitamin D,25 Hydroxy 51.7 ng/mL (29.95-100.01)
[2019-08-17 15:45] LABS: Anion Gap 8 (5-15); BUN 23 mg/dL (7-18); Calcium,Total 8.6 mg/dL (8.5-10.1); Chloride 104 mmol/L (98-107); Creatinine, Serum 1.28 mg/dL (0.55-1.02); EST Glomerular Filtration Rate 43 mL/min (>60); Est Glom Filt Rate - Afr Amer 52 mL/min (>60); Glucose 87 mg/dL (74-106); Sodium Level 140 mmol/L (136-145); Thyroid Stim Hormone (TSH) 1.71 uIU/mL (0.358-3.74)
== END ==
PROVIDERS: Family Medicine; Family Provider Family Medicine; PCP Family Medicine; Referring Provider Family Medicine; Visit Provider Family Medicine
DX: I10 Essential (primary) hypertension (principal); E03.9 Hypothyroidism, unspecified; E55.9 Vitamin D deficiency, unspecified
CPT/HCPCS: 36415; 80048; 82306; 84443; 85027

== ENCOUNTER → 2019-10-26 10:47 | Outpatient (CLI) | payer MEDICARE, OTHER, SELFPAY ==
[2019-05-04 07:19] VITALS: BMI 29.5
[2019-10-26 10:25] VITALS: BMI 29.5
--- NOTE | 2019-10-26 10:49 | BI_ITS ---
MAMMOGRAPHY - BILATERAL SCREENING REASON FOR EXAM: Female, 79 years old. Routine annual screening examination. PERTINENT HISTORY: Aunts with breast cancer. TECHNIQUE: Digital bilateral breast katie (3D mammographic acquisition) in the CC and MLO projections. 2-D mediolateral oblique (MLO) and craniocaudad (CC) views of both breasts were obtained. CAD: Full Field Digital Mammography with Computer Added Detection was performed. COMPARISON: Comparison is made with prior study dated October 12, 2018 and October 09, 2017. FINDINGS: Breast Composition: There are scattered areas of fibroglandular density. There are no dominant masses or suspicious calcifications. Stable benign appearing bilateral axillary lymph nodes. No other significant abnormalities are identified. There has been no significant change since the prior study. BI/SCREEN MAMM (CAD) W/KATIE BILAT IMPRESSION: Stable bilateral screening mammogram. Yearly follow-up mammogram recommended. (A) ASSESSMENT CATEGORY: BIRADS Category 2: Benign. A letter regarding these results will be sent to the patient by the facility within 30 days. Approximately 10% of breast cancers are not detected by mammography. A normal mammogram should not delay biopsy of a clinically suspicious abnormality. [id number] Electronically Signed: Deion Mora, at 12:34 EST , Service support ,
== END ==
PROVIDERS: Family Provider Family Medicine; PCP Family Medicine; Referring Provider Nurse Practitioner Women's Health; Visit Provider Nurse Practitioner Women's Health
DX: Z12.31 Encounter for screening mammogram for malignant neoplasm of breast (principal)
CPT/HCPCS: 77063; 77067

== ENCOUNTER → 2019-11-23 13:33 | Outpatient (CLI) | payer MEDICARE, OTHER, SELFPAY ==
[2019-11-23 16:05] LABS: Anion Gap 5 (5-15); BUN 24 mg/dL (7-18); BUN/Creat Ratio 15.5 RATIO (10-20); Calcium,Total 8.8 mg/dL (8.5-10.1); Chloride 105 mmol/L (98-107); Creatinine, Serum 1.55 mg/dL (0.55-1.02); EST Glomerular Filtration Rate 34 mL/min (>60); Est Glom Filt Rate - Afr Amer 41 mL/min (>60); Glucose 149 mg/dL (74-106); Potassium 3.7 mmol/L (3.5-5.1); Sodium Level 139 mmol/L (136-145)
== END ==
PROVIDERS: PCP Family Medicine; Visit Provider Family Medicine
DX: I10 Essential (primary) hypertension (principal)
CPT/HCPCS: 36415; 80048

== ENCOUNTER → 2019-12-21 15:55 | Outpatient (CLI) | payer MEDICARE, OTHER, SELFPAY ==
[2019-12-21 14:26] VITALS: BMI 29.5
--- NOTE | 2019-12-21 15:59 | RAD_ITS ---
STUDY: X-RAY CHEST REASON FOR EXAM: Female, 79 years old. SOB; -- H/O CVA X 3 TECHNIQUE: Frontal and lateral views of the chest. COMPARISON: 03/22/2017. FINDINGS: The lungs are hyperexpanded. There are coarsened interstitial markings suggestive of mild chronic fibrosis. No gross focal infiltrates. No gross effusions. Normal size heart. Normal mediastinum and manoj. Normal visualized pulmonary arteries. Normal visualized aortic arch and descending thoracic aorta. There are diffuse degenerative changes of the visualized thoracic spine. Normal visualized ribs, clavicles, and shoulders. There is no demonstrated abnormality of the visualized soft tissue structures of the upper abdomen. RAD/Chest PA and Lateral IMPRESSION: There are findings consistent with COPD. There is no evidence of acute chest disease. Electronically Signed: Thomas Davis MD at 20:43 EDT , Service support ,
[2019-12-21 16:59] LABS: Basophil# 0.05 X10^3/uL; Basophil% 0.7 % (0-1); Eosinophil# 0.08 X10^3/uL; Eosinophils% 1.2 % (0-5); Hemoglobin 12.7 g/dL (12.0-15.0); Lymphocyte % 28.2 % (19-41); Mean Corp Hgb Conc 31.8 g/dL (32-36); Mean Corpuscular Hgb 28.4 pg (27.0-32.0); Mean Corpuscular Volume 89.5 fL (81-99); Mean Platelet Vol. 9.5 fl (6.2-12.0); Monocyte# 0.67 X10^3/uL; NRBC Flagged by Analyzer 0 % (0-5); Neutrophil # 4.03 X10^3/uL (2.7-7.7); Neutrophil % 59.9 % (47-70); Platelet Count 179 K/mm3 (150-450); RBC Distribution Width CV 13.6 % (11.6-14.6); RBC Distribution Width SD 44.7 fl (35.1-43.9); Red Blood Count 4.47 M/mm3 (4.2-5.4); White Blood Count 6.7 K/mm3 (4.4-11.0)
[2019-12-21 17:17] LABS: BNP,B-Type NATRIURETIC PEPTIDE 358.1 pg/mL (0-100)
[2019-12-21 17:34] LABS: Anion Gap 4 (5-15); BUN 20 mg/dL (7-18); BUN/Creat Ratio 15.2 RATIO (10-20); Calcium,Total 8.8 mg/dL (8.5-10.1); Chloride 107 mmol/L (98-107); Creatinine, Serum 1.32 mg/dL (0.55-1.02); EST Glomerular Filtration Rate 41 mL/min (>60); Est Glom Filt Rate - Afr Amer 50 mL/min (>60); Glucose 98 mg/dL (74-106); Magnesium 2.3 mg/dL (1.6-2.6); Potassium 4.1 mmol/L (3.5-5.1); Sodium Level 138 mmol/L (136-145); T4 Free Direct 1.25 ng/dL (0.76-1.46); Thyroid Stim Hormone (TSH) 1.34 uIU/mL (0.358-3.74)
== END ==
PROVIDERS: PCP Family Medicine; Referring Provider Nurse Practitioner Family; Visit Provider Nurse Practitioner Family
DX: I10 Essential (primary) hypertension (principal); E78.5 Hyperlipidemia, unspecified; R06.02 Shortness of breath; I48.0 Paroxysmal atrial fibrillation
CPT/HCPCS: 36415; 71046; 80048; 83735; 83880; 84439; 84443; 85025

== ENCOUNTER → 2020-01-03 14:45 | Outpatient (CLI) | payer MEDICARE, OTHER, SELFPAY ==
[2019-12-21 14:26] VITALS: BMI 29.5
[2020-01-03 09:40] LABS: Anion Gap 5 (5-15); BUN 24 mg/dL (7-18); BUN/Creat Ratio 18.8 RATIO (10-20); Calcium,Total 8.8 mg/dL (8.5-10.1); Chloride 107 mmol/L (98-107); Creatinine, Serum 1.28 mg/dL (0.55-1.02); EST Glomerular Filtration Rate 43 mL/min (>60); Est Glom Filt Rate - Afr Amer 52 mL/min (>60); Glucose 89 mg/dL (74-106); Potassium 4.1 mmol/L (3.5-5.1); Sodium Level 140 mmol/L (136-145)
--- NOTE | 2020-01-03 14:47 | ECHOD_ITS ---
Reason For Study: SOB Procedure This was a 2D Doppler, Color Flow transthoracic echocardiogram. Exam performed in department. Left Ventricle Normal LV size. Left ventricular systolic function is normal. The estimated ejection fraction is 60 %. No regional wall motion abnormalities noted. Right Ventricle Normal RV size. Normal systolic function. Atria Normal left atrium. Normal right atrium. Mitral Valve Normal mitral valve. Tricuspid Valve Normal tricuspid valve. Mild (1+) tricuspid valve insufficiency. Pulmonary artery systolic pressure is 30 mmHg. Aortic Valve Normal aortic valve. Trisinus/trileaflet aortic valve. Pulmonic Valve Normal pulmonic valve. Great Vessels Normal aortic root. The pulmonary artery is normal size. Inferior vena cava collapse with sniff. Pericardium/Pleural No pericardial effusion. MMode/2D Measurements & Calculations LVIDd: 3.7 cm IVSd: 1.1 cm Ao root diam: 3.1 cm LVIDs: 2.1 cm LVPWd: 1.1 cm RVDd: 3.5 cm FS: 42.4 % LAV(MOD-bp): 60.1 ml LA A4 area: 18.3 cm2 LA dimension(2D): 4.1 cm LAV(MOD-bp) Indexed: 34.1 ml/m2 LAV(MOD-sp2): 65.8 ml LAV(MOD-sp4): 54.1 ml RA A4 area: 16.7 cm2 Doppler Measurements & Calculations MV E max carmen: 125.1 cm/sec Ao V2 max: 95.9 cm/sec LV V1 max: 84.0 cm/sec Ao max P.7 mmHg LV V1 max P.8 mmHg PA V2 max: 69.7 cm/sec PI end-d carmen: 115.8 cm/sec TR max carmen: 261.5 cm/sec TR max P.4 mmHg Interpretation Summary Normal LV size. Left ventricular systolic function is normal. The estimated ejection fraction is 60 %. Mild (1+) tricuspid valve insufficiency. Structurally normal valves. Ordering Physician: Lemuel Mcdermott Referring Physician: Florian Juarez Performed By: Ginny Knutson, DARIN, RVT
== END ==
PROVIDERS: PCP Family Medicine; Referring Provider Nurse Practitioner Family; Visit Provider Nurse Practitioner Family
DX: R06.02 Shortness of breath (principal); I48.0 Paroxysmal atrial fibrillation; I10 Essential (primary) hypertension; E78.5 Hyperlipidemia, unspecified
CPT/HCPCS: 36415; 80048; 93306

== ENCOUNTER → 2020-02-22 08:55 | Outpatient (CLI) | payer MEDICARE, OTHER, SELFPAY ==
[2019-12-21 14:26] VITALS: BMI 29.5
[2020-02-22 12:19] LABS: Anion Gap 6 (5-15); BUN 23 mg/dL (7-18); BUN/Creat Ratio 19.2 RATIO (10-20); Calcium,Total 8.9 mg/dL (8.5-10.1); Chloride 107 mmol/L (98-107); Cholesterol 145 mg/dL (200); EST Glomerular Filtration Rate 46 mL/min (>60); Est Glom Filt Rate - Afr Amer 56 mL/min (>60); Glucose 93 mg/dL (74-106); High Density Lipoprotein 68 mg/dL; Potassium 4.1 mmol/L (3.5-5.1); Sodium Level 140 mmol/L (136-145); Triglycerides 79 mg/dL; Very Low Density Lipoprotein 16 mg/dL (5-40)
[2020-02-22 12:20] LABS: BNP,B-Type NATRIURETIC PEPTIDE 427.3 pg/mL (0-100)
[2020-02-22 12:25] LABS: Vitamin D,25 Hydroxy 66.4 ng/mL
== END ==
PROVIDERS: PCP Family Medicine; Visit Provider Family Medicine
DX: I10 Essential (primary) hypertension (principal); E78.00 Pure hypercholesterolemia, unspecified; E55.9 Vitamin D deficiency, unspecified
CPT/HCPCS: 80048; 80061; 82306; 83880

== ENCOUNTER → 2020-07-24 11:11 | Outpatient (CLI) | payer OTHER, SELFPAY ==
[2020-05-29 12:46] VITALS: BMI 29.2
[2020-07-24 13:07] LABS: Anion Gap 6 (5-15); BUN 21 mg/dL (7-18); BUN/Creat Ratio 17.6 RATIO (10-20); Calcium,Total 8.9 mg/dL (8.5-10.1); Chloride 104 mmol/L (98-107); Creatinine, Serum 1.19 mg/dL (0.55-1.02); EST Glomerular Filtration Rate 46 mL/min (>60); Est Glom Filt Rate - Afr Amer 56 mL/min (>60); Glucose 90 mg/dL (74-106); Potassium 4.1 mmol/L (3.5-5.1); Sodium Level 137 mmol/L (136-145)
[2020-07-24 13:11] LABS: BNP,B-Type NATRIURETIC PEPTIDE 336.8 pg/mL (0-100)
== END ==
PROVIDERS: PCP Family Medicine; Visit Provider Family Medicine
DX: I10 Essential (primary) hypertension (principal); R06.00 Dyspnea, unspecified
CPT/HCPCS: 80048; 83880

== ENCOUNTER → 2020-10-19 14:13 | Outpatient (CLI) | payer OTHER, SELFPAY ==
[2020-05-29 12:46] VITALS: BMI 29.2
[2020-10-19 18:04] LABS: Hematocrit 42.1 % (37-47); Hemoglobin 13.1 g/dL (12.0-15.0); Mean Corp Hgb Conc 31.1 g/dL (32-36); Mean Corpuscular Hgb 28.8 pg (27.0-32.0); Mean Corpuscular Volume 92.5 fL (81-99); Mean Platelet Vol. 10.5 fl (6.2-12.0); Platelet Count 188 K/mm3 (150-450); RBC Distribution Width CV 13.7 % (11.6-14.6); RBC Distribution Width SD 46.7 fl (35.1-43.9); Red Blood Count 4.55 M/mm3 (4.2-5.4); White Blood Count 6.2 K/mm3 (4.4-11.0)
[2020-10-19 18:16] LABS: Vitamin D,25 Hydroxy 50.4 ng/mL
[2020-10-19 18:29] LABS: Anion Gap 8 (5-15); BUN 27 mg/dL (7-18); BUN/Creat Ratio 21.4 RATIO (10-20); Calcium,Total 8.6 mg/dL (8.5-10.1); Chloride 106 mmol/L (98-107); Cholesterol 170 mg/dL (200); Creatinine, Serum 1.26 mg/dL (0.55-1.02); EST Glomerular Filtration Rate 43 mL/min (>60); Est Glom Filt Rate - Afr Amer 52 mL/min (>60); Glucose 88 mg/dL (74-106); High Density Lipoprotein 66 mg/dL; Potassium 4.4 mmol/L (3.5-5.1); Sodium Level 139 mmol/L (136-145); Thyroid Stim Hormone (TSH) 1.46 uIU/mL (0.358-3.74); Triglycerides 113 mg/dL; Very Low Density Lipoprotein 23 mg/dL (5-40)
== END ==
PROVIDERS: PCP Family Medicine; Referring Provider Family Medicine; Visit Provider Family Medicine
DX: N19 Unspecified kidney failure (principal); R35.0 Frequency of micturition; I10 Essential (primary) hypertension; E03.9 Hypothyroidism, unspecified; E55.9 Vitamin D deficiency, unspecified
CPT/HCPCS: 36415; 80048; 80061; 82306; 84443; 85027; 87086

== ENCOUNTER → 2020-11-08 09:10 | Outpatient (CLI) | payer OTHER, SELFPAY ==
[2020-05-29 12:46] VITALS: BMI 29.2
--- NOTE | 2020-11-08 09:15 | BI_ITS ---
MAMMOGRAPHY - BILATERAL SCREENING REASON FOR EXAM: Female, 80 years old. Routine annual screening examination. PERTINENT HISTORY: Aunts with breast cancer. TECHNIQUE: Digital bilateral breast katie (3D mammographic acquisition) in the CC and MLO projections. 2-D mediolateral oblique (MLO) and craniocaudad (CC) views of both breasts were obtained. CAD: Full Field Digital Mammography with Computer Added Detection was performed. COMPARISON: Comparison is made with prior study dated 06/26/2020 and 10/12/2018. FINDINGS: Breast Composition: There are scattered areas of fibroglandular density. There are no dominant masses or suspicious calcifications. Stable benign-appearing bilateral axillary lymph nodes. No other significant abnormalities are identified. There has been no significant change since the prior study. BI/SCRN MAMM (CAD)W/KATIE BILAT IMPRESSION: Stable bilateral screening mammogram. Yearly follow-up mammogram recommended. (A) ASSESSMENT CATEGORY: BIRADS Category 2: Benign. A letter regarding these results will be sent to the patient by the facility within 30 days. Approximately 10% of breast cancers are not detected by mammography. A normal mammogram should not delay biopsy of a clinically suspicious abnormality. [id number] Electronically Signed: Deion Mora MD at 10:31 EST , Service support ,
== END ==
PROVIDERS: PCP Family Medicine; Referring Provider Nurse Practitioner Women's Health; Visit Provider Nurse Practitioner Women's Health
DX: Z12.31 Encounter for screening mammogram for malignant neoplasm of breast (principal); Z80.3 Family history of malignant neoplasm of breast
CPT/HCPCS: 77063; 77067

== ENCOUNTER → 2021-01-12 12:06 | Outpatient (CLI) | payer MEDICARE, OTHER, SELFPAY ==
[2020-11-08 10:00] VITALS: BMI 30.8
[2021-01-12 15:31] LABS: Anion Gap 6 (5-15); BUN 20 mg/dL (7-18); BUN/Creat Ratio 16.8 RATIO (10-20); Calcium,Total 9.2 mg/dL (8.5-10.1); Chloride 104 mmol/L (98-107); Creatinine, Serum 1.19 mg/dL (0.55-1.02); EST Glomerular Filtration Rate 46 mL/min (>60); Est Glom Filt Rate - Afr Amer 56 mL/min (>60); Glucose 92 mg/dL (74-106); Potassium 4.2 mmol/L (3.5-5.1); Sodium Level 137 mmol/L (136-145)
== END ==
PROVIDERS: PCP Family Medicine; Referring Provider Family Medicine; Visit Provider Family Medicine
DX: I10 Essential (primary) hypertension (principal)
CPT/HCPCS: 36415; 80048

== ENCOUNTER → 2021-01-16 15:08 | Outpatient (CLI) | payer MEDICARE, OTHER, SELFPAY ==
[2020-11-08 10:00] VITALS: BMI 30.8
[2021-01-16 18:11] LABS: Absolute Lymphocyte Count 1.73 X10^3/uL (0.83-4.51); Absolute Neutrophil Count 3.7 X10^3/uL (2.0-7.7); Basophil# 0.05 X10^3/uL; Basophil% 0.8 % (0-1); Eosinophil# 0.09 X10^3/uL; Eosinophils% 1.4 % (0-5); Hematocrit 43.6 % (37-47); Hemoglobin 13.8 g/dL (12.0-15.0); Lymphocyte # 1.73 X10^3/ul (4.0); Lymphocyte % 27.1 % (19-41); Mean Corp Hgb Conc 31.7 g/dL (32-36); Mean Corpuscular Hgb 29.4 pg (27.0-32.0); Mean Corpuscular Volume 92.8 fL (81-99); Mean Platelet Vol. 10.6 fl (6.2-12.0); Monocyte# 0.79 X10^3/uL; Monocyte% 12.4 % (0-10); NRBC Flagged by Analyzer 0 % (0-5); Platelet Count 190 K/mm3 (150-450); RBC Distribution Width CV 13.2 % (11.6-14.6); RBC Distribution Width SD 44.9 fl (35.1-43.9); White Blood Count 6.4 K/mm3 (4.4-11.0)
[2021-01-16 18:29] LABS: Vitamin B12 1256 pg/mL (211-911); Vitamin D,25 Hydroxy 53.4 ng/mL
[2021-01-16 18:42] LABS: AST(SGOT) 18 U/L (15-37); Alanine Aminotransfer ALT/SGPT 32 U/L (13-56); Albumin, Serum 3.8 g/dL (3.2-5.0); Alkaline Phosphatase 76 U/L (45-117); Bilirubin, Direct 0.15 mg/dL (0.00-0.30); CRP 2.96 mg/L (0.0-3.0); Ferritin 49 ng/mL (8-252); Globulin 3.6 g/dL (2.2-4.2); Iron 43 ug/dL (50-170); Protein, Total 7.4 g/dL (6.4-8.2); Rheumatoid Factor < 10.0 IU/mL (<15); Thyroid Stim Hormone (TSH) 1.46 uIU/mL (0.358-3.74)
[2021-01-16 18:53] LABS: BNP,B-Type NATRIURETIC PEPTIDE 207.5 pg/mL (0-100)
[2021-01-18 16:18] LABS: ANTINUCLEAR ANTIBODIES DIRECT Negative (Negative)
== END ==
PROVIDERS: PCP Family Medicine; Visit Provider Family Medicine
DX: I48.91 Unspecified atrial fibrillation (principal); R53.83 Other fatigue
CPT/HCPCS: 36415; 80076; 82306; 82607; 82728; 83540; 83880; 84443; 85025; 86038; 86140; 86431

== ENCOUNTER → 2021-01-31 09:35 | Outpatient (CLI) | payer MEDICARE, OTHER, SELFPAY ==
[2020-11-08 10:00] VITALS: BMI 30.8
--- NOTE | 2021-01-31 09:42 | BD_ITS ---
STUDY: DUAL ENERGY X-RAY ABSORPTIOMETRY / DXA REASON FOR EXAM: Female, 80 years old. M810 TECHNIQUE: Bone Mineral Density (BMD) measurements of lumbar spine and bilateral hips were obtained. COMPARISON: Comparison is made with prior study dated 04/10/2010. FINDINGS: Lumbar Spine (L1-L4): g/cm2 (1.065) / T-score (-1.0) / Z-score (0.9) Findings are suggestive of osteopenia with a low fracture risk. Left Femur Total: g/cm2 (0.834) / T-score (-1.4) / Z-score (0.7) Left Femoral Neck: g/cm2 (0.743) / T-score (-2.1) / Z-score (0.1) Right Femur Total: g/cm2 (0.817) / T-score (-1.5) / Z-score (0.6) Right Femoral Neck: g/cm2 (0.724) / T-score (-2.3) / Z-score (0.0) The T-Scores on the most recent prior examination were: Lumbar Spine (L1-L4): There has been improvement of bone density since the previous examination. Left Femur Total: which represents an improvement of 10.9%. Right Femur Total: which represents an improvement of 1.7%. BD/Dexa Bone Density Study IMPRESSION: The patient is considered osteopenic as outlined below according to World Tee Organization (WHO) criteria with a high fracture risk. There has been improvement of bone density since the previous examination. Reference Information: The T-score is the number of standard deviations above or below the standard which is normal for young adults at their peak bone mineral density. The World Health Organization (WHO) interprets the T-scores as follows: Above -1 Normal bone density Between -1 and -2.5 Osteopenia Equal to / or below -2.5 Osteoporosis As a practical clinical guideline, osteopenia may be graded as follows: Mild -1 through -1.5 Moderate -1.6 through -2.0 Severe -2.1 through -2.4 The Z-score is the number of standard deviations above or below age-matched controls. A Z-score of less than -1.5 would be considered abnormal. References: 1. NIH Osteoporosis and Related Bone Diseases www osteo.org 2. International Society for Clinical Densitometry www iscd.org 3. National Osteoporosis Foundation www nof.org Electronically Signed: Deion Mora MD at 15:41 EDT , Service support ,
== END ==
PROVIDERS: PCP Family Medicine; Referring Provider Family Medicine; Visit Provider Family Medicine
DX: Z00.00 Encounter for general adult medical examination without abnormal findings (principal); M81.0 Age-related osteoporosis without current pathological fracture; M85.80 Other specified disorders of bone density and structure, unspecified site
CPT/HCPCS: 77080

== ENCOUNTER → 2021-05-03 07:21 | Outpatient (CLI) | payer MEDICARE, SELFPAY ==
[2021-02-02 09:26] VITALS: BMI 31.5
[2021-05-03 10:54] LABS: AST(SGOT) 16 U/L (15-37); Alanine Aminotransfer ALT/SGPT 26 U/L (13-56); Albumin, Serum 3.6 g/dL (3.2-5.0); Alkaline Phosphatase 70 U/L (45-117); Anion Gap 7 (5-15); BUN 20 mg/dL (7-18); Calcium,Total 8.5 mg/dL (8.5-10.1); Chloride 106 mmol/L (98-107); Cholesterol 151 mg/dL (200); Creatinine, Serum 1.25 mg/dL (0.55-1.02); EST Glomerular Filtration Rate 44 mL/min (>60); Est Glom Filt Rate - Afr Amer 53 mL/min (>60); Globulin 3.5 g/dL (2.2-4.2); Glucose 87 mg/dL (74-106); High Density Lipoprotein 74 mg/dL; Potassium 3.9 mmol/L (3.5-5.1); Protein, Total 7.1 g/dL (6.4-8.2); Sodium Level 140 mmol/L (136-145); Thyroid Stim Hormone (TSH) 2.03 uIU/mL (0.358-3.74); Triglycerides 68 mg/dL; Very Low Density Lipoprotein 14 mg/dL (5-40)
[2021-05-03 21:16] LABS: BNP,B-Type NATRIURETIC PEPTIDE 190.6 pg/mL (0-100)
== END ==
PROVIDERS: PCP Family Medicine; Referring Provider Family Medicine; Visit Provider Family Medicine
DX: Z00.00 Encounter for general adult medical examination without abnormal findings (principal); R06.00 Dyspnea, unspecified; E78.00 Pure hypercholesterolemia, unspecified; R53.83 Other fatigue
CPT/HCPCS: 36415; 80053; 80061; 83880; 84443

== ENCOUNTER → 2021-07-31 12:35 | Outpatient (CLI) | payer MEDICARE, SELFPAY ==
[2021-07-31 15:40] LABS: Anion Gap 8 (5-15); BUN 26 mg/dL (7-18); BUN/Creat Ratio 20.6 RATIO (10-20); Calcium,Total 9.1 mg/dL (8.5-10.1); Chloride 104 mmol/L (98-107); Creatinine, Serum 1.26 mg/dL (0.55-1.02); EST Glomerular Filtration Rate 43 mL/min (>60); Est Glom Filt Rate - Afr Amer 52 mL/min (>60); Glucose 88 mg/dL (74-106); Potassium 3.9 mmol/L (3.5-5.1); Sodium Level 139 mmol/L (136-145)
== END ==
PROVIDERS: PCP Family Medicine; Referring Provider Family Medicine; Visit Provider Family Medicine
DX: N18.30 Chronic kidney disease, stage 3 unspecified (principal)
CPT/HCPCS: 36415; 80048

== ENCOUNTER → 2021-08-22 | Outpatient (CLI) | payer MEDICARE, SELFPAY | END | disposition home or self-care (01) | PROVIDERS: PCP Family Medicine; Visit Provider Family Medicine | DX: Z20.822 Contact with and (suspected) exposure to COVID-19 (principal) | CPT/HCPCS: 87635; U0005; U0003 ==

== ENCOUNTER → 2021-08-24 | Outpatient (CLI) | payer MEDICARE, SELFPAY | END | disposition home or self-care (01) | LOC: LABSPEC 15:14 | PROVIDERS: PCP Family Medicine; Referring Provider Family Medicine; Visit Provider Family Medicine | DX: J39.9 Disease of upper respiratory tract, unspecified (principal); Z11.52 Encounter for screening for COVID-19 | CPT/HCPCS: 87633; 87635; U0005; U0003 ==

== ENCOUNTER → 2021-08-27 10:49 | Outpatient (CLI) | payer MEDICARE, SELFPAY ==
--- NOTE | 2021-08-27 11:07 | RAD_ITS ---
STUDY: X-RAY CHEST REASON FOR EXAM: Female, 81 years old. Technologist Notes COUGH, WEAKNESS malaise, chest congestion TECHNIQUE: XR Chest 2 Views COMPARISON: 12/21/2019 FINDINGS: There is no demonstrated pleural abnormality. Normal size heart. Normal mediastinum and manoj. Normal visualized pulmonary arteries. There is atherosclerotic calcification of the aortic arch with tortuosity. There are diffuse degenerative changes of the visualized thoracic spine. There is degenerative osteoarthritis of the bilateral shoulders. There is no demonstrated abnormality of the visualized soft tissue structures of the upper abdomen. RAD/Chest PA and Lateral IMPRESSION: There are no acute findings. Electronically Signed: Benoit Kaminski MD at 17:28 EST , Service support ,
== END ==
PROVIDERS: PCP Family Medicine; Referring Provider Family Medicine; Visit Provider Family Medicine
DX: R09.89 Other specified symptoms and signs involving the circulatory and respiratory systems (principal)
CPT/HCPCS: 71046

== ENCOUNTER → 2021-09-05 16:47 | Outpatient (CLI) | payer MEDICARE, SELFPAY ==
--- NOTE | 2021-09-05 16:49 | RAD_ITS ---
INDICATION: BRONCHITIS EXAMINATION/TECHNIQUE: X-RAY - XR Chest 2 Views COMPARISON: Chest from 08/27/2021 FINDINGS: LINES/DEVICES: None. Cardiomediastinal silhouette is within normal limits. No focal consolidations, effusions, or sizable pneumothorax. Mild multilevel degenerative changes of thoracic spine. No acute osseous abnormality. RAD/Chest PA and Lateral IMPRESSION: No acute cardiopulmonary process. Electronically Signed: Erickson Zhong MD at 9:05 EST Tel , Service support ,
== END ==
PROVIDERS: PCP Family Medicine; Referring Provider Family Medicine; Visit Provider Family Medicine
DX: J40 Bronchitis, not specified as acute or chronic (principal)
CPT/HCPCS: 71046

== ENCOUNTER 2021-11-01 14:05 | Outpatient (CLI) | payer MEDICARE, SELFPAY ==
[2021-11-01 17:51] LABS: Absolute Lymphocyte Count 1.11 X10^3/uL (0.83-4.51); Absolute Neutrophil Count 3.7 X10^3/uL (2.0-7.7); Basophil# 0.05 X10^3/uL; Basophil% 0.9 % (0-1); Eosinophil# 0.23 X10^3/uL; Eosinophils% 3.9 % (0-5); Hematocrit 38.2 % (37-47); Hemoglobin 12.3 g/dL (12.0-15.0); Lymphocyte # 1.11 X10^3/ul (0.83-4.51); Lymphocyte % 18.9 % (19-41); Mean Corp Hgb Conc 32.2 g/dL (32-36); Mean Corpuscular Hgb 28.7 pg (27.0-32.0); Mean Corpuscular Volume 89.3 fL (81-99); Mean Platelet Vol. 10.9 fl (6.2-12.0); Monocyte# 0.74 X10^3/uL; Monocyte% 12.6 % (0-10); NRBC Flagged by Analyzer 0 % (0-5); Neutrophil # 3.71 X10^3/uL (2.7-7.7); Neutrophil % 63.2 % (47-70); Platelet Count 227 K/mm3 (150-450); RBC Distribution Width CV 13.2 % (11.6-14.6); RBC Distribution Width SD 43.1 fl (35.1-43.9); Red Blood Count 4.28 M/mm3 (4.2-5.4); White Blood Count 5.9 K/mm3 (4.4-11.0)
[2021-11-01 18:21] LABS: Anion Gap 6 (5-15); BUN 17 mg/dL (7-18); BUN/Creat Ratio 13.4 RATIO (10-20); Calcium,Total 9.3 mg/dL (8.5-10.1); Chloride 103 mmol/L (98-107); Creatinine, Serum 1.27 mg/dL (0.55-1.02); EST Glomerular Filtration Rate 43 mL/min (>60); Est Glom Filt Rate - Afr Amer 52 mL/min (>60); Glucose 97 mg/dL (74-106); Potassium 3.6 mmol/L (3.5-5.1); Sodium Level 135 mmol/L (136-145); Thyroid Stim Hormone (TSH) 1.06 uIU/mL (0.358-3.74)
[2021-11-01 18:30] LABS: Vitamin D,25 Hydroxy 76.6 ng/mL
[2021-11-01 18:38] LABS: BNP,B-Type NATRIURETIC PEPTIDE 159.3 pg/mL (0-100)
== END 2021-11-01 23:59 | disposition short-term general hospital (02) ==
LOC: MFPLAB 14:06
PROVIDERS: PCP Family Medicine; Referring Provider Family Medicine; Visit Provider Family Medicine
DX: I48.91 Unspecified atrial fibrillation (principal); E55.9 Vitamin D deficiency, unspecified; E03.9 Hypothyroidism, unspecified; I10 Essential (primary) hypertension; Z20.822 Contact with and (suspected) exposure to COVID-19
CPT/HCPCS: 36415; 80048; 82306; 83880; 84443; 85025; 86769

== ENCOUNTER 2021-12-10 12:49 | Outpatient (CLI) | payer MEDICARE, SELFPAY ==
--- NOTE | 2021-12-10 12:52 | ECHOD_ITS ---
Reason For Study: FATIGUE Procedure This was a 2D Doppler, Color Flow transthoracic echocardiogram. Exam performed in department. Left Ventricle Normal LV size. Left ventricular systolic function is normal. The estimated ejection fraction is 60 %. No regional wall motion abnormalities noted. Right Ventricle Normal RV size. Normal systolic function. Atria Normal left atrium. Normal right atrium. Mitral Valve Normal mitral valve. Trivial eccentric mitral valve insufficiency. Tricuspid Valve Normal tricuspid valve. Mild tricuspid valve insufficiency. Pulmonary artery systolic pressure is 30 mmHg. Aortic Valve Normal aortic valve. Pulmonic Valve Normal pulmonic valve. Mild (1+) pulmonic valve insufficiency. Great Vessels Normal aortic root. The pulmonary artery is normal size. Normal inferior vena cava. Pericardium/Pleural No pericardial effusion. MMode/2D Measurements & Calculations LVIDd: 4.1 cm IVSd: 0.97 cm Ao root diam: 3.1 cm LVIDs: 2.5 cm LVPWd: 1.3 cm RVDd: 2.9 cm FS: 37.8 % LAV(MOD-bp): 61.7 ml LVAd ap4: 22.3 cm2 SV(MOD-sp4): 39.9 ml LAV(MOD-bp) Indexed: 35.1 ml/m2 LVLd ap4: 6.5 cm LAV(MOD-sp2): 59.8 ml EDV(MOD-sp4): 63.6 ml LAV(MOD-sp4): 56.2 ml EDV(sp4-el): 64.9 ml LVAs ap4: 12.4 cm2 LVLs ap4: 5.4 cm ESV(MOD-sp4): 23.7 ml ESV(sp4-el): 24.2 ml EF(MOD-sp4): 62.7 % EF(sp4-el): 62.8 % SV(sp4-el): 40.8 ml LA A4 area: 21.2 cm2 LA dimension(2D): 4.1 cm RA A4 area: 21.8 cm2 Doppler Measurements & Calculations MV E max carmen: 122.3 cm/sec Ao V2 max: 115.9 cm/sec LV V1 max: 112.8 cm/sec Ao max P.4 mmHg LV V1 max P.1 mmHg PA V2 max: 83.8 cm/sec TR max carmen: 254.5 cm/sec TR max P.9 mmHg ECHO/Echo Complete Interpretation Summary Normal LV size. Left ventricular systolic function is normal. The estimated ejection fraction is 60 %. Mild tricuspid valve insufficiency. Pulmonary artery systolic pressure is 30 mmHg. Ordering Physician: Siva Juarez Referring Physician: Siva Juarez Performed By: Anamaria, Torie, RDCS
== END 2021-12-10 23:59 | disposition home or self-care (01) ==
LOC: CVS 12:50
PROVIDERS: PCP Family Medicine; Referring Provider Family Medicine; Visit Provider Family Medicine
DX: R53.83 Other fatigue (principal); I48.91 Unspecified atrial fibrillation; R07.9 Chest pain, unspecified
CPT/HCPCS: 93306

== ENCOUNTER 2022-01-22 12:04 | Outpatient (CLI) | payer MEDICARE, SELFPAY ==
--- NOTE | 2022-01-22 12:06 | BI_ITS ---
MAMMOGRAPHY - BILATERAL SCREENING REASON FOR EXAM: Female, 81 years old. Routine annual screening examination. PERTINENT HISTORY: Aunts with breast cancer. TECHNIQUE: Digital bilateral breast katie (3D mammographic acquisition) in the CC and MLO projections. 2-D mediolateral oblique (MLO) and craniocaudad (CC) views of both breasts were obtained. CAD: Full Field Digital Mammography with Computer Added Detection was performed. COMPARISON: Comparison is made with prior study dated 05/08/2021 and 10/26/2019. FINDINGS: Breast Composition: There are scattered areas of fibroglandular density. There are no dominant masses or suspicious calcifications. Stable small benign-appearing bilateral axillary lymph nodes. No other significant abnormalities are identified. There has been no significant change since the prior study. BI/SCRN MAMM (CAD)W/KATIE BILAT IMPRESSION: Stable bilateral screening mammogram. Yearly follow-up mammogram recommended. (A) ASSESSMENT CATEGORY: BIRADS Category 2: Benign. A letter regarding these results will be sent to the patient by the facility within 30 days. Approximately 10% of breast cancers are not detected by mammography. A normal mammogram should not delay biopsy of a clinically suspicious abnormality. [id number] Electronically Signed: Deion Mora MD at 13:48 EDT ,
== END 2022-01-22 23:59 | disposition home or self-care (01) ==
LOC: OPBI 12:05
PROVIDERS: PCP Family Medicine; Referring Provider Nurse Practitioner Women's Health; Visit Provider Nurse Practitioner Women's Health
DX: Z12.31 Encounter for screening mammogram for malignant neoplasm of breast (principal)
CPT/HCPCS: 77063; 77067

== ENCOUNTER → 2022-02-01 | Outpatient (CLI) | payer MEDICARE, SELFPAY ==
[2022-02-01 10:32] LABS: Anion Gap 7 (5-15); BUN 20 mg/dL (7-18); BUN/Creat Ratio 14.4 RATIO (10-20); Calcium,Total 8.7 mg/dL (8.5-10.1); Chloride 106 mmol/L (98-107); Cholesterol 168 mg/dL (200); Creatinine, Serum 1.39 mg/dL (0.55-1.02); EST Glomerular Filtration Rate 39 mL/min (>60); Est Glom Filt Rate - Afr Amer 47 mL/min (>60); Glucose 95 mg/dL (74-106); High Density Lipoprotein 88 mg/dL; Potassium 3.8 mmol/L (3.5-5.1); Sodium Level 139 mmol/L (136-145); Triglycerides 96 mg/dL; Very Low Density Lipoprotein 19 mg/dL (5-40)
[2022-02-01 10:50] LABS: BNP,B-Type NATRIURETIC PEPTIDE 257.3 pg/mL (0-100)
== END | disposition home or self-care (01) ==
LOC: MFPLAB 08:20
PROVIDERS: PCP Family Medicine; Referring Provider Family Medicine; Visit Provider Family Medicine
DX: I10 Essential (primary) hypertension (principal)
CPT/HCPCS: 36415; 80048; 80061; 83880

== ENCOUNTER → 2022-05-07 | Outpatient (CLI) | payer MEDICARE, SELFPAY ==
[2022-05-07 19:33] LABS: Anion Gap 6 (5-15); BUN 24 mg/dL (7-18); BUN/Creat Ratio 17.6 RATIO (10-20); Calcium,Total 8.8 mg/dL (8.5-10.1); Chloride 106 mmol/L (98-107); Creatinine, Serum 1.36 mg/dL (0.55-1.02); EST Glomerular Filtration Rate 40 mL/min (>60); Est Glom Filt Rate - Afr Amer 48 mL/min (>60); Glucose 110 mg/dL (74-106); Potassium 4.2 mmol/L (3.5-5.1); Sodium Level 140 mmol/L (136-145); Thyroid Stim Hormone (TSH) 1.73 uIU/mL (0.358-3.74)
== END | disposition home or self-care (01) ==
LOC: MTLAB 13:19
PROVIDERS: PCP Family Medicine; Referring Provider Family Medicine; Visit Provider Family Medicine
DX: I10 Essential (primary) hypertension (principal); E03.9 Hypothyroidism, unspecified
CPT/HCPCS: 36415; 80048; 84443

== ENCOUNTER → 2022-05-30 | Outpatient (CLI) | payer MEDICARE, SELFPAY ==
[2022-05-30 13:07] LABS: Anion Gap 4 (5-15); BNP,B-Type NATRIURETIC PEPTIDE 284.1 pg/mL (0-100); BUN 24 mg/dL (7-18); BUN/Creat Ratio 18.2 RATIO (10-20); Calcium,Total 9.3 mg/dL (8.5-10.1); Chloride 105 mmol/L (98-107); Creatinine, Serum 1.32 mg/dL (0.55-1.02); EST Glomerular Filtration Rate 41 mL/min (>60); Est Glom Filt Rate - Afr Amer 50 mL/min (>60); Glucose 95 mg/dL (74-106); Potassium 4.2 mmol/L (3.5-5.1); Sodium Level 137 mmol/L (136-145)
== END | disposition home or self-care (01) ==
LOC: LAB 11:36
PROVIDERS: PCP Family Medicine; Referring Provider Family Medicine; Visit Provider Family Medicine
DX: I48.91 Unspecified atrial fibrillation (principal); I10 Essential (primary) hypertension
CPT/HCPCS: 36415; 80048; 83880

== ENCOUNTER → 2022-07-11 | Outpatient (CLI) | payer MEDICARE, SELFPAY ==
[2022-07-11 15:42] LABS: BNP,B-Type NATRIURETIC PEPTIDE 237.1 pg/mL (0-100)
[2022-07-11 15:45] LABS: Vitamin D,25 Hydroxy 70.1 ng/mL
[2022-07-11 15:58] LABS: BUN 22 mg/dL (7-18); Creatinine, Serum 1.34 mg/dL (0.55-1.02); Glucose 86 mg/dL (74-106)
[2022-07-11 15:59] LABS: Anion Gap 7 (5-15); BUN/Creat Ratio 16.4 RATIO (10-20); Calcium,Total 9.3 mg/dL (8.5-10.1); Chloride 104 mmol/L (98-107); EST Glomerular Filtration Rate 40 mL/min (>60); Est Glom Filt Rate - Afr Amer 49 mL/min (>60); Sodium Level 138 mmol/L (136-145); Thyroid Stim Hormone (TSH) 1.99 uIU/mL (0.358-3.74)
== END | disposition home or self-care (01) ==
LOC: MTLAB 12:58
PROVIDERS: PCP Family Medicine; Referring Provider Family Medicine; Visit Provider Family Medicine
DX: I48.91 Unspecified atrial fibrillation (principal); E55.9 Vitamin D deficiency, unspecified
CPT/HCPCS: 36415; 80048; 82306; 83880; 84443

== ENCOUNTER → 2022-08-02 | Outpatient (CLI) | payer MEDICARE, SELFPAY | END | disposition home or self-care (01) | LOC: LABSPEC 10:02 | PROVIDERS: PCP Family Medicine; Referring Provider Family Medicine; Visit Provider Family Medicine | DX: U07.1 COVID-19 (principal) | CPT/HCPCS: 87635; U0003; U0005 ==

== ENCOUNTER 2022-08-04 03:22 | Emergency (ER) | payer MEDICARE, SELFPAY ==
[2022-08-04 03:23] VITALS: BP 157/95; PULSE 95; RESP 20; TEMP 36.3; O2SAT 97; BMI 31.6
[2022-08-04 03:37] VITALS: O2SAT 96
--- NOTE | 2022-08-04 04:26 | EDS_ITS ---
HPI History of Present Illness Chief Complaint: Shortness of Breath Narrative Narrative: Patient is an 81-year-old female with past medical history of hypertension hyperlipidemia and atrial fibrillation currently on Eliquis. She states she has had nasal congestion sore throat and cough for about 3 days. She states she recently went and tested for COVID and was positive and therefore was placed on steroids and antivirals. She states she is been taking the medications as directed but 3-5 times today she felt she was choking on mucus. She states she is finding difficult to sleep secondary to this and does not know if there is any other treatment options possible and secondary to this comes in for evaluation [facility] Medical History (Updated 08/04/22 @ 08:[address] Paramjit Mccord, DO) Carpal tunnel syndrome of left wrist Cephalgia CVA (cerebral vascular accident) Essential (primary) hypertension GERD (gastroesophageal reflux disease) History of stroke Hyperlipidemia, unspecified Hypokalemia Hypokalemia Hyponatremia Hypothyroid Received intravenous tissue plasminogen activator (tPA) in emergency department Home Medications coenzyme [id number] 100 mg-5 unit capsule 1 ea PO DAILY 03/02/17 [History Last Taken 03/20/17] B-complex with vitamin C 1 ea PO DAILY ##30 03/18/17 [Rx Last Taken 03/21/17] cholecalciferol (vitamin D3) 25 mcg (1,000 unit) tablet 1,000 unit PO BIDCM #60 tabs 03/18/17 [Rx Last Taken 03/21/17] sennosides 8.6 mg tablet 1 tab PO BID PRN PRN Constipation #30 tabs 03/24/17 [Rx Last Taken Unknown] loratadine 10 mg tablet (Claritin) 10 mg PO QDAY 09/30/17 [History Last Taken Unknown] levothyroxine 50 mcg tablet (Synthroid) 50 mcg PO DAILY 07/30/18 [History Last Taken Unknown] rosuvastatin 10 mg tablet 10 mg PO DAILY 07/30/18 [History Last Taken Unknown] lorazepam 0.5 mg tablet (Ativan) 0.5 mg PO DAILY PRN Anxiety 11/15/19 [History Last Taken Unknown] diltiazem HCl 360 mg capsule,extended release 24 hr 360 mg PO DAILY pt wants 90 day RX for next fill #90 caps 08/20/21 [Rx Last Taken Unknown] esomeprazole magnesium 40 mg capsule,delayed release (Nexium) 40 mg PO DAILY 11/19/21 [History Last Taken Unknown] apixaban 2.5 mg tablet (Eliquis) See Rx Instructions .Route .COMPLEX #180 tabs 12/24/21 [Rx Last Taken Unknown] losartan 100 mg tablet 100 mg PO DAILY #90 tabs 02/04/22 [Rx Last Taken Unknown] albuterol sulfate 90 mcg/actuation breath activated powder inhaler,sensor 2 inh inhalation Q4H PRN shortness of breath or wheezing #1 ea 08/04/22 [Rx Last Taken Unknown] azelastine 137 mcg (0.1 %) nasal spray aerosol 2 spray intranasal BID #30 mL 08/04/22 [Rx Last Taken Unknown] azelastine 137 mcg (0.1 %) nasal spray aerosol 2 spray intranasal BID #30 mL 08/04/22 [Rx Last Taken Unknown] molnupiravir 200 mg capsule (EUA) 800 mg PO Q12H 08/04/22 [History Last Taken Unknown] prednisone 20 mg tablet 40 mg PO DAILY 08/04/22 [History Last Taken Unknown] Allergy/AdvReac Type Severity Reaction Status Date / Time escitalopram [From Lexapro] Allergy Severe parasthesis Verified 08/04/22 03:26 Sulfa (Sulfonamide Allergy Unknown Verified 08/04/22 03:26 Antibiotics) verapamil HCl Allergy Other Verified 08/04/22 03:26 [From Covera-HS] simvastatin [From Zocor] AdvReac Severe Myalgias Verified 08/04/22 03:26 Family History Father Heart disease Emphysema of lung Surgical History History of hysterectomy History of tonsillectomy History of tubal ligation Status post Mohs surgery (~2011) Social History Smoking Status: Never smoker alcohol intake: never substance use type: does not use caffeine: Yes Type: coffee Number of servings: 2 what type of physical activity do you participate in: walking seatbelt use: always do you feel safe at home: Yes additional social history: Loc-Retired ROS ROS ED Constitutional Constitutional ED: Reports chills, fever(s) and subjective ENT ENT ED: Reports rhinorrhea and sore throat Cardiovascular Cardiovascular: Denies chest pain Respiratory/Chest Respiratory/Chest: Reports cough and dyspnea Gastrointestinal Gastrointestinal: Denies abdominal pain, diarrhea, nausea or vomiting Genitourinary Genitourinary ED: Denies dysuria Musculoskeletal Musculoskeletal: Denies myalgias Integumentary Denies rash Neurologic Neurologic: Reports headache(s) Hematologic/Lymphatic Hematologic/Lymphatic: Reports easy bleeding and easy bruising EXAM Physical Exam Const Vital Signs: 08/04/22 03:23 08/04/22 03:37 08/04/22 05:02 Temperature 97.4 F L Temperature Source Temporal Pulse Rate 95 78 Respiratory Rate 20 H 18 Respiratory Effort Normal Respiratory Depth Normal Respiratory Pattern Normal Blood Pressure 157/95 H 142/74 H Blood Pressure Mean 115 Pulse Ox 97 96 Oxygen Delivery Method Room Air Room Air Positive well nourished and well developed General Appearance ED: well developed HEENT Reports moist mucous membranes HEENT Narrative: Nasal mucosa is hyperemic and boggy with enlarged inferior nasal turbinates. Cobblestoning noted in the posterior pharynx consistent with sinus drainage but no airway edema or compromise Eyes PERRL and EOMs intact bilaterally Neck supple and no JVD Chest Wall palpation of chest normal Resp normal respiratory effort Resp Narrative: Breath sounds are diminished throughout with faint expiratory wheeze consistent with recent diagnosis of COVID but otherwise no nasal flaring retractions tachypnea or accessory muscle use Cardio regular rate and regular rhythm Extremity normal to inspection Extremity Narrative: No asymmetric edema no pitting edema negative Homans' sign bilaterally Neuro oriented x3 and CN's II-XII intact bilaterally Sensorium / Orientation: alert Psych mental status grossly normal Skin no rashes or lesions noted MDM MDM MDM Narrative Medical decision making narrative: Patient presented to the ER in no acute respiratory distress satting in the high 90s on room air. She is currently on steroids and antivirals which is the proper treatment for COVID. Her main concern was any possible medication to reduce the congestion which she feels is occasionally blocking her airway. At this time she was advised to take Mucinex [id number] to help thin secretions drink plenty of warm fluids and I will add Azelastine to help prevent further drainage from the nasal passage. However at this time as she is already on proper treatment for COVID has a known diagnosis of it and does not show signs of hypoxia or respiratory distress there is no need for work-up and she is otherwise safe for discharge Discharge Plan Triage Chief Complaint: Shortness of Breath ED Provider: Paramjit Mccord Dx/Rx/DC Orders Clinical Impression: COVID-19, Essential (primary) hypertension, Hyperlipidemia, unspecified, Current use of [facility] anticoagulation Instructions: Coronavirus Disease 2019 (COVID-19): Caring for Yourself or Others Prescriptions: New azelastine 137 mcg (0.1 %) aerosol,spray 2 spray intranasal BID Qty: 30 0RF Rx Instructions: administer into each nostril albuterol sulfate 90 mcg/actuation aero powdr breath act w/sensor 2 inh inhalation Q4H PRN (Reason: shortness of breath or wheezing) Qty: 1 1RF azelastine 137 mcg (0.1 %) aerosol,spray 2 spray intranasal BID Qty: 30 0RF Rx Instructions: administer into each nostril No Action loratadine [Claritin] 10 mg tablet 10 mg PO QDAY lorazepam [Ativan] 0.5 mg tablet 0.5 mg PO DAILY PRN (Reason: Anxiety) rosuvastatin 10 mg tablet 10 mg PO DAILY levothyroxine [Synthroid] 50 mcg tablet 50 mcg PO DAILY esomeprazole magnesium [Nexium] 40 mg capsule,delayed release(DR/EC) 40 mg PO DAILY coenzyme [id number] 1 EACH capsule 1 ea PO DAILY Label Comments: VITAMIN REPLACEMENT cholecalciferol (vitamin D3) 1,000 UNIT tablet 1,000 unit PO BIDCM Qty: 60 0RF Label Comments: supplement B-complex with vitamin C 1 EACH tablet 1 ea PO DAILY Qty: 30 0RF Label Comments: supplement sennosides 1 TABLET tablet 1 tab PO BID PRN PRN (Reason: Constipation) Qty: 30 0RF Label Comments: stool softener prednisone 20 mg tablet 40 mg PO DAILY Label Comments: Take 2 tablets by mouth daily molnupiravir 200 mg Capsule 800 mg PO Q12H diltiazem HCl 360 mg capsule,extended release 24hr 360 mg PO DAILY Qty: 90 3RF Eliquis 2.5 mg tablet See Rx Instructions .ROUTE .COMPLEX Qty: 180 3RF Dose Instruction: TAKE 1 TABLET TWICE A DAY Rx Instructions: TAKE 1 TABLET TWICE A DAY losartan 100 mg tablet 100 mg PO DAILY Qty: 90 3RF Primary Care Provider: Siva Juarez Referrals: Siva Juarez MD [Primary Care Provider] - Activity Restrictions/Additional Instructions: Please continue your medications as directed by your family doctor but add the nasal spray to help reduce nasal inflammation and mucus production. You may use [id number] Mucinex as well to help thin secretions to make it easier to cough out. Please continue to drink plenty of warm fluids throughout the day to also thin secretions. Follow-up with your family doctor or return to the ER should you have any further concerns Disposition Disposition: Home, Self Care Discharge Date/Time: 08/04/22 05:28
[2022-08-04] MEDS: Albuterol Sulfate 8 gm Inhaler (60 puffs) 2 PUFF INHALATION (04:56)
[2022-08-04 05:02] VITALS: BP 142/74; PULSE 78; RESP 18; O2SAT 96
== END 2022-08-04 05:28 | disposition home or self-care (01) ==
PROVIDERS: Emergency Provider Emergency Medicine; PCP Family Medicine; Visit Provider Emergency Medicine
DX: U07.1 COVID-19 (principal); I48.91 Unspecified atrial fibrillation; I10 Essential (primary) hypertension; E78.5 Hyperlipidemia, unspecified; E03.9 Hypothyroidism, unspecified; K21.9 Gastro-esophageal reflux disease without esophagitis; Z79.01 Long term (current) use of anticoagulants; Z79.890 Hormone replacement therapy; Z79.899 Other long term (current) drug therapy; Z86.73 Personal history of transient ischemic attack (TIA), and cerebral infarction without residual deficits
CPT/HCPCS: 99285

== ENCOUNTER 2022-09-04 07:30 | Emergency (ER) | payer MEDICARE, SELFPAY ==
[2022-09-04 07:33] VITALS: BP 151/85; PULSE 86; RESP 26; TEMP 36.9; O2SAT 96; BMI 31.5
--- NOTE | 2022-09-04 07:48 | EKG12_ITS ---
Test Reason : CP Blood Pressure : / mmHG Vent. Rate : 090 BPM Atrial Rate : 113 BPM P-R Int : 000 ms QRS Dur : 078 ms QT Int : 364 ms P-R-T Axes : 000 019 078 degrees QTc Int : 445 ms Atrial fibrillation Abnormal ECG Confirmed by ANITRA GUZMAN, EBONI ([id number]), non linear editor PATRICE PONCE ([id number]) on 09/09/2022 11:39:44 AM Referred By: YAMILE Confirmed By:EBONI AYOUB MD
[2022-09-04 07:51] VITALS: O2SAT 96
--- NOTE | 2022-09-04 07:57 | RAD_ITS ---
STUDY: X-RAY CHEST REASON FOR EXAM: Female, 82 years old. Chest pain TECHNIQUE: Single AP portable view of the chest. COMPARISON: 09/05/2021 chest x-ray FINDINGS: The lungs are clear and expanded. There is no demonstrated pleural abnormality. There is borderline cardiomegaly. Normal mediastinum and manoj. Normal visualized pulmonary arteries. There is atherosclerotic calcification of the aortic arch with tortuosity. There are diffuse degenerative changes of the visualized thoracic spine. Normal visualized ribs, clavicles, and shoulders. There is no demonstrated abnormality of the visualized soft tissue structures of the upper abdomen. RAD/Chest 1 View (Portable) IMPRESSION: No demonstrated acute cardiopulmonary process. Electronically Signed: Irene Arndt MD at 8:24 EST ,
[2022-09-04 08:00] LABS: Absolute Lymphocyte Count 1.29 X10^3/uL (0.83-4.51); Absolute Neutrophil Count 3.9 X10^3/uL (2.0-7.7); Basophil# 0.05 X10^3/uL; Basophil% 0.8 % (0-1); Eosinophils% 1.6 % (0-5); Hematocrit 39.8 % (37-47); Hemoglobin 12.6 g/dL (12.0-15.0); Lymphocyte # 1.29 X10^3/ul (0.83-4.51); Lymphocyte % 21.2 % (19-41); Mean Corp Hgb Conc 31.7 g/dL (32-36); Mean Corpuscular Hgb 28.8 pg (27.0-32.0); Mean Corpuscular Volume 90.9 fL (81-99); Mean Platelet Vol. 10.2 fl (6.2-12.0); Monocyte# 0.72 X10^3/uL; Monocyte% 11.8 % (0-10); NRBC Flagged by Analyzer 0 % (0-5); Neutrophil # 3.91 X10^3/uL (2.7-7.7); Neutrophil % 64.3 % (47-70); Platelet Count 195 K/mm3 (150-450); RBC Distribution Width CV 13.4 % (11.6-14.6); RBC Distribution Width SD 44.4 fl (35.1-43.9); Red Blood Count 4.38 M/mm3 (4.2-5.4); White Blood Count 6.1 K/mm3 (4.4-11.0)
[2022-09-04] MEDS: Aspirin 81 MG TAB.CHEW 324 MG PO (08:14)
[2022-09-04 08:16] LABS: Anion Gap 6 (5-15); BUN 18 mg/dL (7-18); Calcium,Total 8.9 mg/dL (8.5-10.1); Chloride 106 mmol/L (98-107); Creatinine, Serum 1.29 mg/dL (0.55-1.02); EST Glomerular Filtration Rate 42 mL/min (>60); Est Glom Filt Rate - Afr Amer 51 mL/min (>60); Estimated Creatinine Clearance 26.13 ml/min; Glucose 96 mg/dL (74-106); Potassium 3.6 mmol/L (3.5-5.1); Sodium Level 141 mmol/L (136-145); Troponin-I HS (w/2H Reflex) 14 pg/mL (3.0-54.0)
[2022-09-04 08:31] VITALS: BP 150/92; PULSE 89; RESP 16; O2SAT 97
--- NOTE | 2022-09-04 09:16 | EDS_ITS ---
HPI History of Present Illness Chief Complaint: Chest Pain Narrative Narrative: 82-year-old female presenting for evaluation. She states that she does have some chronic dyspnea and difficulty clearing her throat. She states this week she is felt a little bit unwell with this. She describes leg weakness. She is not had a fever. She denies body aches. She states this difficulty clearing her secretions has been worse this week. She states Mucinex makes it worse. She has previously followed up with ENT who told her she needed to be on a PPI and prescribed this for her. She also states she followed up with her PCP this week for the weakness however her PCP was not and and she saw Dr. Medina who started her on erythromycin. She reports this not helping. She states she is not sure what she was being treated for. I asked her what her symptoms were that brought her to the office that she said may be some sinus pressure and drainage. She had not had a fever, chills, body aches prior to the visit. This morning she states that while coughing she experienced a couple of seconds of chest pain in the retrosternal area which did not radiate. She denies nausea, diaphoresis, lightheadedness with this. Patient is anticoagulated on Eliquis for history of atrial fibrillation. She denies black or bloody stools although she does admit to some diarrhea after starting the erythromycin [facility] Medical History Carpal tunnel syndrome of left wrist Cephalgia CVA (cerebral vascular accident) Essential (primary) hypertension GERD (gastroesophageal reflux disease) History of stroke Hyperlipidemia, unspecified Hypokalemia Hypokalemia Hyponatremia Hypothyroid Received intravenous tissue plasminogen activator (tPA) in emergency department Home Medications coenzyme [id number] 100 mg-5 unit capsule 1 ea PO DAILY 03/02/17 [History Last Taken 03/20/17] B-complex with vitamin C 1 ea PO DAILY ##30 03/18/17 [Rx Last Taken 03/21/17] cholecalciferol (vitamin D3) 25 mcg (1,000 unit) tablet 1,000 unit PO BIDCM #60 tabs 03/18/17 [Rx Last Taken 03/21/17] sennosides 8.6 mg tablet 1 tab PO BID PRN PRN Constipation #30 tabs 03/24/17 [Rx Last Taken Unknown] loratadine 10 mg tablet (Claritin) 10 mg PO QDAY 09/30/17 [History Last Taken Unknown] levothyroxine 50 mcg tablet (Synthroid) 50 mcg PO DAILY 07/30/18 [History Last Taken Unknown] rosuvastatin 10 mg tablet 10 mg PO DAILY 07/30/18 [History Last Taken Unknown] lorazepam 0.5 mg tablet (Ativan) 0.5 mg PO DAILY PRN Anxiety 11/15/19 [History Last Taken Unknown] esomeprazole magnesium 40 mg capsule,delayed release (Nexium) 40 mg PO DAILY 11/19/21 [History Last Taken Unknown] apixaban 2.5 mg tablet (Eliquis) See Rx Instructions .Route .COMPLEX #180 tabs 12/24/21 [Rx Last Taken Unknown] losartan 100 mg tablet 100 mg PO DAILY #90 tabs 02/04/22 [Rx Last Taken Unknown] albuterol sulfate 90 mcg/actuation breath activated powder inhaler,sensor 2 inh inhalation Q4H PRN shortness of breath or wheezing #1 ea 08/04/22 [Rx Last Taken Unknown] azelastine 137 mcg (0.1 %) nasal spray aerosol 2 spray intranasal BID #30 mL 08/04/22 [Rx Last Taken Unknown] azelastine 137 mcg (0.1 %) nasal spray aerosol 2 spray intranasal BID #30 mL 08/04/22 [Rx Last Taken Unknown] molnupiravir 200 mg capsule (EUA) 800 mg PO Q12H 08/04/22 [History Last Taken U nknown] prednisone 20 mg tablet 40 mg PO DAILY 08/04/22 [History Last Taken Unknown] diltiazem HCl 360 mg capsule,extended release 24 hr 360 mg PO DAILY pt wants 90 day RX for next fill #90 caps 08/19/22 [Rx Last Taken Unknown] Allergy/AdvReac Type Severity Reaction Status Date / Time escitalopram [From Lexapro] Allergy Severe parasthesis Verified 09/04/22 07:30 Sulfa (Sulfonamide Allergy Unknown Verified 09/04/22 07:30 Antibiotics) verapamil HCl Allergy Other Verified 09/04/22 07:30 [From Covera-HS] simvastatin [From Zocor] AdvReac Severe Myalgias Verified 09/04/22 07:30 Family History Father Heart disease Emphysema of lung Surgical History History of hysterectomy History of tonsillectomy History of tubal ligation Status post Mohs surgery (~2011) Social History Smoking Status: Never smoker alcohol intake: never substance use type: does not use caffeine: Yes Type: coffee Number of servings: 2 what type of physical activity do you participate in: walking seatbelt use: always do you feel safe at home: Yes additional social history: Loc-Retired ROS ROS ED Constitutional Constitutional ED: Denies chills, fever(s) or weight loss Eyes Eyes: Denies blurry vision or change in vision ENT ENT ED: Reports rhinorrhea and sore throat Cardiovascular Cardiovascular: Reports as per HPI Respiratory/Chest Respiratory/Chest: Reports cough and dyspnea Gastrointestinal Gastrointestinal: Denies abdominal pain, nausea or vomiting Genitourinary Genitourinary ED: Denies dysuria or hematuria Musculoskeletal Musculoskeletal: Denies arthralgias or back pain Integumentary Denies abscess or Abrasions Neurologic Neurologic: Denies headache(s) or paresthesias Psychiatric Psychiatric: Denies anxiety or depression Endocrine Endocrinology: Denies cold intolerance or heat intolerance EXAM Physical Exam Const Vital Signs: 09/04/22 07:33 09/04/22 07:33 09/04/22 07:51 Temperature 98.4 F Temperature Source Oral Pulse Rate 86 Respiratory Rate 26 H Respiratory Effort Normal Non-Labored Blood Pressure 151/85 H Blood Pressure Mean 107 Pulse Ox 96 96 Oxygen Delivery Method Room Air Room Air 09/04/22 08:31 09/04/22 09:29 09/04/22 10:07 Temperature Temperature Source Pulse Rate 89 89 97 Respiratory Rate 16 16 15 Respiratory Effort Blood Pressure 150/92 H 157/98 H Blood Pressure Mean 111 117 Pulse Ox 97 97 96 Oxygen Delivery Method Room Air Room Air Room Air 09/04/22 11:36 Temperature Temperature Source Pulse Rate 76 Respiratory Rate 18 Respiratory Effort Blood Pressure 148/88 H Blood Pressure Mean Pulse Ox 100 Oxygen Delivery Method Positive well nourished General Appearance ED: NAD; Negative for pallor HEENT Reports moist mucous membranes normocephalic Eyes PERRL and EOMs intact bilaterally Chest Wall inspection of chest normal and palpation of chest normal Resp normal respiratory effort and clear to auscultation bilaterally Effort and Inspection: Negative for respiratory distress Auscultation: Negative for rales, rhonchi or wheezes Cardio regular rate and regular rhythm GI normal to inspection, nondistended, normoactive bowel sounds Neuro oriented x3 and CN's II-XII intact bilaterally Sensorium / Orientation: awake and alert Psych mental status grossly normal Skin no rashes or lesions noted General Skin Exam: Negative for jaundice or pallor MDM MDM MDM Narrative Medical decision making narrative: Patient presenting with difficulty clearing her sputum and a mild cough. She feels generally unwell. She was tested for COVID the other day in office. She was started on erythromycin the other day without improvement. She states she got a little bit of diarrhea from this. Blood work is obtained today because she reported some chest pain which lasted for a couple of seconds. She is unsure if this is related to coughing. EKG was obtained which showed atrial fibrillation with a controlled ventricular sponsor of 90 bpm. Chest x-ray on my interpretation shows no acute cardiopulmonary process and radiologist agree. CBC and BMP are unremarkable. Urinalysis negative for infection. High- sensitivity troponin is 14. Delta troponin is 15. There is no significant interval change. Ultimately patient's work-up was negative. I feel she is stable to be discharged home. She requested follow-up with pulmonology and this was provided. Return precautions discussed. Impression: 1. Viral syndrome 2. Chest pain?noncardiac Lab Data Attestation: I reviewed the patient's lab results. Labs: Laboratory Results - last 24 hr 09/04/22 09/04/22 09/04/22 07:38 07:38 09:30 WBC 6.1 RBC 4.38 Hgb 12.6 Hct 39.8 MCV 90.9 MCH 28.8 MCHC 31.7 L RDW Std Deviation 44.4 H RDW Coeff of Bhavesh 13.4 Plt Count 195 MPV 10.2 Immature Gran % (Auto) 0.300 Neut % (Auto) 64.3 Lymph % (Auto) 21.2 [place] % (Auto) 11.8 H Eos % (Auto) 1.6 Baso % (Auto) 0.8 Absolute Neuts (auto) 3.9 Absolute Lymphs (auto) 1.29 Nucleated RBC % 0 Sodium 141 Potassium 3.6 Chloride 106 Carbon Dioxide 29.0 Anion Gap 6 BUN 18 Creatinine 1.29 H Estim Creat Clear Calc 26.13 Est GFR (MDRD) Af Amer 51 L Est GFR (MDRD) Non-Af 42 L BUN/Creatinine Ratio 14.0 Glucose 96 Calcium 8.9 Troponin I High Sens 14 Urine Color Yellow Urine Clarity Sl. Cloudy Urine pH 7.0 Ur Specific [place] 1.005 Urine Protein Negative Urine Glucose (UA) Normal Urine Ketones Negative Urine Occult Blood Negative Urine Nitrite Negative Urine Bilirubin Negative Urine Urobilinogen Normal Ur Leukocyte Esterase 100 H Urine RBC 0 SEEN Urine WBC 10-25 SEEN Ur Squamous Epith Cells 0-5 SEEN Urine Bacteria 0 SEEN Urine Mucus 0 SEEN 09/04/22 10:00 WBC RBC Hgb Hct MCV MCH MCHC RDW Std Deviation RDW Coeff of Bhavesh Plt Count MPV Immature Gran % (Auto) Neut % (Auto) Lymph % (Auto) [place] % (Auto) Eos % (Auto) Baso % (Auto) Absolute Neuts (auto) Absolute Lymphs (auto) Nucleated RBC % Sodium Potassium Chloride Carbon Dioxide Anion Gap BUN Creatinine Estim Creat Clear Calc Est GFR (MDRD) Af Amer Est GFR (MDRD) Non-Af BUN/Creatinine Ratio Glucose Calcium Troponin I High Sens 15 Urine Color Urine Clarity Urine pH Ur Specific [place] Urine Protein Urine Glucose (UA) Urine Ketones Urine Occult Blood Urine Nitrite Urine Bilirubin Urine Urobilinogen Ur Leukocyte Esterase Urine RBC Urine WBC Ur Squamous Epith Cells Urine Bacteria Urine Mucus Radiography Diagnostic Testing: Clinical Impression(s) from Imaging Studies Chest X-Ray 09/04/22 07:57 IMPRESSION: No demonstrated acute cardiopulmonary process. Electronically Signed: Irene Arndt MD at 8:24 EST , Discharge Plan Triage Chief Complaint: Chest Pain ED Provider: Quinten Brody Dx/Rx/DC Orders Instructions: ED Chest Pain, Noncardiac, ED Viral Syndrome (Adult) Prescriptions: No Action loratadine [Claritin] 10 mg tablet 10 mg PO QDAY lorazepam [Ativan] 0.5 mg tablet 0.5 mg PO DAILY PRN (Reason: Anxiety) rosuvastatin 10 mg tablet 10 mg PO DAILY levothyroxine [Synthroid] 50 mcg tablet 50 mcg PO DAILY esomeprazole magnesium [Nexium] 40 mg capsule,delayed release(DR/EC) 40 mg PO DAILY coenzyme [id number] 1 EACH capsule 1 ea PO DAILY Label Comments: VITAMIN REPLACEMENT cholecalciferol (vitamin D3) 1,000 UNIT tablet 1,000 unit PO BIDCM Qty: 60 0RF Label Comments: supplement B-complex with vitamin C 1 EACH tablet 1 ea PO DAILY Qty: 30 0RF Label Comments: supplement sennosides 1 TABLET tablet 1 tab PO BID PRN PRN (Reason: Constipation) Qty: 30 0RF Label Comments: stool softener prednisone 20 mg tablet 40 mg PO DAILY Label Comments: Take 2 tablets by mouth daily molnupiravir 200 mg Capsule 800 mg PO Q12H azelastine 137 mcg (0.1 %) aerosol,spray 2 spray intranasal BID Qty: 30 0RF Rx Instructions: administer into each nostril albuterol sulfate 90 mcg/actuation aero powdr breath act w/sensor 2 inh inhalation Q4H PRN (Reason: shortness of breath or wheezing) Qty: 1 1RF azelastine 137 mcg (0.1 %) aerosol,spray 2 spray intranasal BID Qty: 30 0RF Rx Instructions: administer into each nostril Eliquis 2.5 mg tablet See Rx Instructions .ROUTE .COMPLEX Qty: 180 3RF Dose Instruction: TAKE 1 TABLET TWICE A DAY Rx Instructions: TAKE 1 TABLET TWICE A DAY losartan 100 mg tablet 100 mg PO DAILY Qty: 90 3RF diltiazem HCl 360 mg capsule,extended release 24hr 360 mg PO DAILY Qty: 90 3RF Primary Care Provider: Siva Juarez Referrals: Chavez Wagner MD [Med Staff - Active Staff] - 3-5 Days Siva Juarez MD [Primary Care Provider] - Disposition Disposition: Home, Self Care Discharge Date/Time: 09/04/22 11:36
[2022-09-04 09:29] VITALS: BP 157/98; PULSE 89; RESP 16; O2SAT 97
[2022-09-04 09:41] LABS: Bacteria 0 SEEN /hpf (None Seen); Mucous, Urine 0 SEEN /hpf (<or=2+); Red Blood Cells-Urine 0 SEEN /hpf (0-5)
[2022-09-04 09:43] LABS: Color, Urine Yellow (Yellow); Glucose, Dipstick Normal (Normal); Ketone-Dipstick Negative (Negative); Leukocyte Esterase-Dipstick 100 /ul (Negative); Nitrite-Dipstick Negative (Negative); Occult Blood-Urine Negative /ul (Negative); Protein-Dipstick Negative (Negative); Specific Gravity, Urine 1.005 (1.002-1.030); Urine Bilirubin Dipstick Negative (Negative); Urine Clarity Sl. Cloudy (Clear); Urine Urobilinogen Normal (Normal)
[2022-09-04 09:49] LABS: Squamous Epithelial Cells - UA 0-5 SEEN /hpf (5-10); White Blood Cells 10-25 SEEN /hpf (0-5)
[2022-09-04 09:54] LABS: Reflex Troponin-HS? (from REC) Y
[2022-09-04 10:07] VITALS: PULSE 97; RESP 15; O2SAT 96
[2022-09-04 10:43] LABS: Troponin-I HS 15 pg/mL (3.0-54.0)
[2022-09-04 11:36] VITALS: BP 148/88; PULSE 76; RESP 18; O2SAT 100
== END 2022-09-04 11:36 | disposition home or self-care (01) ==
PROVIDERS: Emergency Provider Student in an Organized Health Care Education/Training Program; PCP Family Medicine; Visit Provider Student in an Organized Health Care Education/Training Program
DX: B34.9 Viral infection, unspecified (principal); I48.91 Unspecified atrial fibrillation; R07.89 Other chest pain; R06.00 Dyspnea, unspecified; I10 Essential (primary) hypertension; E78.5 Hyperlipidemia, unspecified; E03.9 Hypothyroidism, unspecified; R19.7 Diarrhea, unspecified; K21.9 Gastro-esophageal reflux disease without esophagitis; Z79.01 Long term (current) use of anticoagulants; Z79.890 Hormone replacement therapy; Z79.899 Other long term (current) drug therapy; Z86.73 Personal history of transient ischemic attack (TIA), and cerebral infarction without residual deficits
CPT/HCPCS: 71045; 80048; 81001; 84484; 85025; 93005; 99285

== ENCOUNTER → 2022-10-15 | Outpatient (CLI) | payer MEDICARE, SELFPAY ==
[2022-10-15 12:42] LABS: BUN 17 mg/dL (7-18); BUN/Creat Ratio 14.4 RATIO (10-20); Calcium,Total 9.1 mg/dL (8.5-10.1); Cholesterol 167 mg/dL (200); Creatinine, Serum 1.18 mg/dL (0.55-1.02); EST Glomerular Filtration Rate 47 mL/min (>60); Est Glom Filt Rate - Afr Amer 56 mL/min (>60); Glucose 84 mg/dL (74-106); Sodium Level 141 mmol/L (136-145); Triglycerides 80 mg/dL
[2022-10-15 12:43] LABS: Anion Gap 7 (5-15); Chloride 106 mmol/L (98-107); High Density Lipoprotein 75 mg/dL; Potassium 3.8 mmol/L (3.5-5.1); Very Low Density Lipoprotein 16 mg/dL (5-40)
== END | disposition home or self-care (01) ==
LOC: MTLAB 09:26
PROVIDERS: PCP Family Medicine; Referring Provider Family Medicine; Visit Provider Family Medicine
DX: N18.30 Chronic kidney disease, stage 3 unspecified (principal); E78.00 Pure hypercholesterolemia, unspecified
CPT/HCPCS: 36415; 80048; 80061

== ENCOUNTER 2022-10-27 04:37 | Emergency (ER) | payer MEDICARE, SELFPAY ==
[2022-10-27 04:39] VITALS: BP 171/78; PULSE 97; RESP 15; TEMP 36.8; O2SAT 98; BMI 28.8
[2022-10-27] MEDS: Ondansetron 4 MG/2 ML Vial IV (05:24)
[2022-10-27] MEDS: dexAMETHasone 10 MG/ML Vial IV (05:26)
[2022-10-27] MEDS: Morphine 2 MG/ML Syringe IV (05:34)
[2022-10-27 05:49] LABS: Absolute Lymphocyte Count 0.86 X10^3/uL (0.83-4.51); Absolute Neutrophil Count 5.9 X10^3/uL (2.0-7.7); Basophil# 0.04 X10^3/uL; Basophil% 0.5 % (0-1); Eosinophil# 0.01 X10^3/uL; Eosinophils% 0.1 % (0-5); Hemoglobin 14.2 g/dL (12.0-15.0); Lymphocyte # 0.86 X10^3/ul (0.83-4.51); Lymphocyte % 11.6 % (19-41); Mean Corpuscular Hgb 29.2 pg (27.0-32.0); Mean Corpuscular Volume 88.5 fL (81-99); Mean Platelet Vol. 10.3 fl (6.2-12.0); Monocyte# 0.62 X10^3/uL; Monocyte% 8.4 % (0-10); NRBC Flagged by Analyzer 0 % (0-5); Neutrophil # 5.86 X10^3/uL (2.7-7.7); Neutrophil % 79.1 % (47-70); Platelet Count 198 K/mm3 (150-450); Red Blood Count 4.86 M/mm3 (4.2-5.4); White Blood Count 7.4 K/mm3 (4.4-11.0)
--- NOTE | 2022-10-27 06:03 | RAD_ITS ---
INDICATION: Sharp pain to left buttock since yesterday EXAMINATION/TECHNIQUE: X-RAY - XR Hip Unilateral with Pelvis when performed; 2-3 Views: AP view pelvis with AP and lateral views of left hip COMPARISON: None. FINDINGS: PELVIC BONES: No displaced fracture, destructive or sclerotic lesions. Note that overlapping bowel shadows may however obscure fine detail. Sacroiliac joints are unremarkable. No widening of the pubic symphysis. HIPS: Symmetric and adequately aligned bilateral hips with no acute fracture or dislocation. Hip joint spaces are preserved. SOFT TISSUES: Small vascular calcifications noted. RAD/HIP, UNI W/ Pelvis 2-3 Views IMPRESSION: No acute osseous abnormality. Electronically Signed: Tomas Aguirre MD at 6:29 EST ,
[2022-10-27 06:06] LABS: AST(SGOT) 25 U/L (15-37); Alanine Aminotransfer ALT/SGPT 26 U/L (13-56); Albumin, Serum 3.8 g/dL (3.2-5.0); Alkaline Phosphatase 81 U/L (45-117); Anion Gap 9 (5-15); BUN 15 mg/dL (7-18); BUN/Creat Ratio 14.4 RATIO (10-20); Bilirubin, Direct 0.23 mg/dL (0.00-0.30); Calcium,Total 9.2 mg/dL (8.5-10.1); Chloride 103 mmol/L (98-107); Creatinine, Serum 1.04 mg/dL (0.55-1.02); EST Glomerular Filtration Rate 54 mL/min (>60); Est Glom Filt Rate - Afr Amer 65 mL/min (>60); Estimated Creatinine Clearance 32.42 ml/min; Globulin 3.9 g/dL (2.2-4.2); Glucose 114 mg/dL (74-106); Lipase 191 U/L (73-393); Potassium 3.5 mmol/L (3.5-5.1); Protein, Total 7.7 g/dL (6.4-8.2); Sodium Level 137 mmol/L (136-145)
--- NOTE | 2022-10-27 06:40 | EDS_ITS ---
HPI History of Present Illness Chief Complaint: Nausea/Vomiting Narrative Narrative: Patient is an 82-year-old female with past medical history of hypertension hypothyroidism GERD hyperlipidemia and atrial fibrillation currently on Eliquis. She presents with multiple complaints. She states that yesterday she was cleaning and noticed 1 to 2 hours after cleaning that her left hip was hurting with any type of motion. She states that there was no trauma such as falling prior to the starting. She states after the hip began to hurt then she began to feel nauseous and just unwell. She states that there is been no fevers or chills or dysuria but states that throughout the evening the nausea and pain in the hip has persisted and this made it difficult to get around and secondary to this she comes in for evaluation [facility] Medical History (Updated 10/27/22 @ 07:[address] Paramjit Mccord, ) Carpal tunnel syndrome of left wrist Cephalgia CVA (cerebral vascular accident) Essential (primary) hypertension GERD (gastroesophageal reflux disease) History of stroke Hyperlipidemia, unspecified Hypokalemia Hypokalemia Hyponatremia Hypothyroid Received intravenous tissue plasminogen activator (tPA) in emergency department Home Medications coenzyme [id number] 100 mg-5 unit capsule 1 ea PO DAILY 03/02/17 [History Last Taken 03/20/17] B-complex with vitamin C 1 ea PO DAILY ##30 03/18/17 [Rx Last Taken 03/21/17] cholecalciferol (vitamin D3) 25 mcg (1,000 unit) tablet 1,000 unit PO BIDCM #60 tabs 03/18/17 [Rx Last Taken 03/21/17] sennosides 8.6 mg tablet 1 tab PO BID PRN PRN Constipation #30 tabs 03/24/17 [Rx Last Taken Unknown] loratadine 10 mg tablet (Claritin) 10 mg PO QDAY 09/30/17 [History Last Taken Unknown] levothyroxine 50 mcg tablet (Synthroid) 50 mcg PO DAILY 07/30/18 [History Last Taken Unknown] rosuvastatin 10 mg tablet 10 mg PO DAILY 07/30/18 [History Last Taken Unknown] lorazepam 0.5 mg tablet (Ativan) 0.5 mg PO DAILY PRN Anxiety 11/15/19 [History Last Taken Unknown] esomeprazole magnesium 40 mg capsule,delayed release (Nexium) 40 mg PO DAILY 11/19/21 [History Last Taken Unknown] losartan 100 mg tablet 100 mg PO DAILY #90 tabs 02/04/22 [Rx Last Taken Unknown] albuterol sulfate 90 mcg/actuation breath activated powder inhaler,sensor 2 inh inhalation Q4H PRN shortness of breath or wheezing #1 ea 08/04/22 [Rx Last Taken Unknown] azelastine 137 mcg (0.1 %) nasal spray aerosol 2 spray intranasal BID #30 mL 08/04/22 [Rx Last Taken Unknown] azelastine 137 mcg (0.1 %) nasal spray aerosol 2 spray intranasal BID #30 mL 08/04/22 [Rx Last Taken Unknown] molnupiravir 200 mg capsule (EUA) 800 mg PO Q12H 08/04/22 [History Last Taken Unknown] prednisone 20 mg tablet 40 mg PO DAILY 08/04/22 [History Last Taken Unknown] diltiazem HCl 360 mg capsule,extended release 24 hr 360 mg PO DAILY pt wants 90 day RX for next fill #90 caps 08/19/22 [Rx Last Taken Unknown] apixaban 2.5 mg tablet (Eliquis) See Rx Instructions .Route .COMPLEX #180 tabs 09/30/22 [Rx Last Taken Unknown] methocarbamol 500 mg tablet 500 mg PO 4X/DAY PRN PRN Muscle pain/spasm #40 tabs 10/27/22 [Rx Last Taken Unknown] ondansetron 4 mg disintegrating tablet 4 mg PO TID PRN nausea and vomiting #21 tabs 10/27/22 [Rx Last Taken Unknown] prednisone 20 mg tablet 20 mg PO DAILY 5 days #5 tabs 10/27/22 [Rx Last Taken Unknown] Allergy/AdvReac Type Severity Reaction Status Date / Time escitalopram [From Lexapro] Allergy Severe parasthesis Verified 09/04/22 07:30 Sulfa (Sulfonamide Allergy Unknown Verified 09/04/22 07:30 Antibiotics) verapamil HCl Allergy Other Verified 09/04/22 07:30 [From Covera-HS] simvastatin [From Zocor] AdvReac Severe Myalgias Verified 09/04/22 07:30 Family History Father Heart disease Emphysema of lung Surgical History History of hysterectomy History of tonsillectomy History of tubal ligation Status post Mohs surgery (~2011) Social History Smoking Status: Never smoker alcohol intake: never substance use type: does not use caffeine: Yes Type: coffee Number of servings: 2 what type of physical activity do you participate in: walking seatbelt use: always do you feel safe at home: Yes additional social history: Loc-Retired ROS ROS ED Constitutional Constitutional ED: Denies chills or fever(s) ENT ENT ED: Denies sore throat Cardiovascular Cardiovascular: Denies chest pain Respiratory/Chest Respiratory/Chest: Denies cough or dyspnea Gastrointestinal Gastrointestinal: Reports nausea and vomiting; Denies abdominal pain or diarrhea Genitourinary Genitourinary ED: Denies dysuria or hematuria Musculoskeletal Musculoskeletal: Reports arthralgias; Denies myalgias or neck pain Integumentary Denies rash Neurologic Neurologic: Denies headache(s) Hematologic/Lymphatic Hematologic/Lymphatic: Reports easy bleeding and easy bruising EXAM Physical Exam Const Vital Signs: 10/27/22 04:39 Temperature 98.3 F Temperature Source Oral Pulse Rate 97 Respiratory Rate 15 Blood Pressure 171/78 H Blood Pressure Mean 109 Pulse Ox 98 Oxygen Delivery Method Room Air Positive well nourished, well developed and obese General Appearance ED: well developed Nutritional Appearance: obese HEENT Reports dry mucous membranes HEENT Narrative: Mucous membranes are slightly dry and tacky there are no secondary changes in the posterior pharynx to suggest infection Mouth ED: Yes dry mucous membranes Mouth: dry mucous membranes Eyes PERRL and EOMs intact bilaterally General Eye ED: Negative for scleral icterus Neck supple Resp normal respiratory effort and clear to auscultation bilaterally Cardio regular rate Rate: other Other Details: Patient has a irregularly irregular rhythm with regular rate consistent with history of atrial fibrillation GI non-distended and no masses GI Narrative: Abdomen is soft and nondistended with normoactive bowel sounds. Patient has mild pain with palpation diffusely without voluntary guarding or rigidity. No pulsatile mass or fluid wave Auscultation: normoactive bowel sounds Palpation: soft Extremity Extremity Narrative: Pelvis is stable there is no shortening or external rotation of either lower extremity. There is pain on palpation near the left greater trochanter that worsens with active and passive hip flexion and external rotation. No overlying soft tissue changes to suggest trauma or infection. Patient has +1 pitting edema to the bilateral lower extremities that is equal and symmetric. Negative Homans' sign bilaterally. Neuro oriented x3 and CN's II-XII intact bilaterally Sensorium / Orientation: alert Psych Psych Narrative: Patient has a nervous/anxious affect Skin no rashes or lesions noted General Skin Exam: Negative for jaundice MDM MDM MDM Narrative Medical decision making narrative: Patient presented to the ER hypertensive but has a past medical history of this and otherwise with stable vitals. She reported she was cleaning yesterday and then the pain began in the left hip a few hours later with no direct trauma. It was only after the pain that she started with the bouts of nausea. On exam her abdomen is soft and nonsurgical and therefore I felt no need for emergent CAT scan. Basic blood work was obtained which reveals no clinically significant finding. Patient does report a past medical history of chronic kidney disease but her creatinine today is 1.04 which is actually improved from the last value. She also has no elevation to her lipase and stable liver enzymes going against pancreatitis or gallbladder/liver dysfunction. With pain in the left hip and no direct trauma I did elect her perform an x-ray which displayed no acute finding. The patient was given IV Decadron as I felt that the history is most consistent with bursitis as well as a low-dose 2 mg morphine. On reevaluation she reports the pain is much better. Therefore this time as I have low concern for DVT as she is currently on Eliquis and exam does not suggest infection and her exam also does not suggest acute intestinal infection there is no need for further work-up and patient is otherwise safe for discharge Lab Data Attestation: I reviewed the patient's lab results. Labs: Laboratory Results - last 24 hr 10/27/22 10/27/22 05:40 05:40 WBC 7.4 RBC 4.86 Hgb 14.2 Hct 43.0 MCV 88.5 MCH 29.2 MCHC 33.0 RDW Std Deviation 42.0 RDW Coeff of Bhavesh 13.0 Plt Count 198 MPV 10.3 Immature Gran % (Auto) 0.300 Neut % (Auto) 79.1 H Lymph % (Auto) 11.6 L [place] % (Auto) 8.4 Eos % (Auto) 0.1 Baso % (Auto) 0.5 Absolute Neuts (auto) 5.9 Absolute Lymphs (auto) 0.86 Nucleated RBC % 0 Sodium 137 Potassium 3.5 Chloride 103 Carbon Dioxide 25.0 Anion Gap 9 BUN 15 Creatinine 1.04 H Estim Creat Clear Calc 32.42 Est GFR (MDRD) Af Amer 65 Est GFR (MDRD) Non-Af 54 L BUN/Creatinine Ratio 14.4 Glucose 114 H Calcium 9.2 Total Bilirubin 0.60 Direct Bilirubin 0.23 AST 25 ALT 26 Alkaline Phosphatase 81 Total Protein 7.7 Albumin 3.8 Globulin 3.9 Lipase 191 Radiography Diagnostic Testing: Clinical Impression(s) from Imaging Studies Hip/Pelvis X-Ray 10/27/22 06:03 IMPRESSION: No acute osseous abnormality. 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 Instructions: ED Back Sprain/Strain, ED Bursitis Prescriptions: New ondansetron 4 mg tablet,disintegrating 4 mg PO TID PRN (Reason: nausea and vomiting) Qty: 21 0RF prednisone 20 mg tablet 20 mg PO DAILY 5 Days Qty: 5 0RF methocarbamol 500 mg tablet 500 mg PO 4X/DAY PRN PRN (Reason: Muscle pain/spasm) Qty: 40 0RF No Action loratadine [Claritin] 10 mg tablet 10 mg PO QDAY lorazepam [Ativan] 0.5 mg tablet 0.5 mg PO DAILY PRN (Reason: Anxiety) rosuvastatin 10 mg tablet 10 mg PO DAILY levothyroxine [Synthroid] 50 mcg tablet 50 mcg PO DAILY esomeprazole magnesium [Nexium] 40 mg capsule,delayed release(DR/EC) 40 mg PO DAILY coenzyme [id number] E 1 EACH capsule 1 ea PO DAILY Label Comments: VITAMIN REPLACEMENT cholecalciferol (vitamin D3) 1,000 UNIT tablet 1,000 unit PO BIDCM Qty: 60 0RF Label Comments: supplement B-complex with vitamin C 1 EACH tablet 1 ea PO DAILY Qty: 30 0RF Label Comments: supplement sennosides 1 TABLET tablet 1 tab PO BID PRN PRN (Reason: Constipation) Qty: 30 0RF Label Comments: stool softener prednisone 20 mg tablet 40 mg PO DAILY Label Comments: Take 2 tablets by mouth daily molnupiravir 200 mg Capsule 800 mg PO Q12H azelastine 137 mcg (0.1 %) aerosol,spray 2 spray intranasal BID Qty: 30 0RF Rx Instructions: administer into each nostril albuterol sulfate 90 mcg/actuation aero powdr breath act w/sensor 2 inh inhalation Q4H PRN (Reason: shortness of breath or wheezing) Qty: 1 1RF azelastine 137 mcg (0.1 %) aerosol,spray 2 spray intranasal BID Qty: 30 0RF Rx Instructions: administer into each nostril losartan 100 mg tablet 100 mg PO DAILY Qty: 90 3RF diltiazem HCl 360 mg capsule,extended release 24hr 360 mg PO DAILY Qty: 90 3RF Eliquis 2.5 mg tablet See Rx Instructions .ROUTE .COMPLEX Qty: 180 3RF Dose Instruction: TAKE 1 TABLET TWICE A DAY Rx Instructions: TAKE 1 TABLET TWICE A DAY Primary Care Provider: Siva Juarez Referrals: Siva Juarez MD [Primary Care Provider] - Activity Restrictions/Additional Instructions: Please take your medication as directed to help resolve your symptoms. Follow- up with your family doctor for repeat evaluation and return to the ER should you have any further concerns or worsening of symptoms. Disposition Disposition: Home, Self Care
[2022-10-27] MEDS: Orphenadrine 60 MG/2 ML Ampul IV (07:29)
[2022-10-27 07:54] VITALS: BP 168/74; PULSE 90; RESP 16; O2SAT 98
== END 2022-10-27 08:13 | disposition home or self-care (01) ==
PROVIDERS: Emergency Provider Emergency Medicine; PCP Family Medicine; Visit Provider Emergency Medicine
DX: M70.62 Trochanteric bursitis, left hip (principal); I48.19 Other persistent atrial fibrillation; S39.012A Strain of muscle, fascia and tendon of lower back, initial encounter; R11.2 Nausea with vomiting, unspecified; N18.9 Chronic kidney disease, unspecified; E78.5 Hyperlipidemia, unspecified; I12.9 Hypertensive chronic kidney disease with stage 1 through stage 4 chronic kidney disease, or unspecified chronic kidney disease; Z79.01 Long term (current) use of anticoagulants; Z79.52 Long term (current) use of systemic steroids; E66.9 Obesity, unspecified; X58.XXXA Exposure to other specified factors, initial encounter
CPT/HCPCS: 73502; 80048; 80076; 83690; 85025; 87428; 96374; 96375; 99284; J7040; A4216; J2405

== ENCOUNTER → 2022-10-30 | Outpatient (CLI) | payer MEDICARE, SELFPAY ==
--- NOTE | 2022-10-30 15:43 | RAD_ITS ---
STUDY: X-RAY - LUMBAR SPINE REASON FOR EXAM: Female, 82 years old. SI JOINT DISFUNCTION TECHNIQUE: XR Spine Lumbar Min 4 Views COMPARISON: None FINDINGS: Normal lumbar lordosis. There is no substantial scoliosis. There is a normal alignment of the vertebrae. There is multilevel endplate spondylosis of the lumbar vertebrae. There is multi-level degenerative disc disease with multi-level disc space narrowing. There are atherosclerotic vascular calcifications. The soft tissue structures are unremarkable. RAD/L/S Spine Min 4 Views IMPRESSION: Degenerative changes of the spine, as detailed above. Electronically Signed: Benoit Kaminski MD at 16:52 EST ,
== END | disposition home or self-care (01) ==
PROVIDERS: PCP Family Medicine; Referring Provider Family Medicine; Visit Provider Family Medicine
DX: M53.3 Sacrococcygeal disorders, not elsewhere classified (principal)
CPT/HCPCS: 72110

== ENCOUNTER 2022-11-01 14:06 | Emergency (ER) | payer MEDICARE, SELFPAY ==
[2022-11-01 14:07] VITALS: BP 154/86; PULSE 99; RESP 20; TEMP 37.2; O2SAT 96; BMI 27.4
[2022-11-01] MEDS: Ondansetron ODT 4 MG Tablet PO (15:36)
[2022-11-01] MEDS: DiphenhydrAMINE 25 MG Capsule PO (15:37)
[2022-11-01] MEDS: oxyCODONE 5 MG Tablet PO (15:37)
--- NOTE | 2022-11-01 16:19 | EX.ED.DYSGE1 ---
HPI <ARBEN Yu - Last Filed: 11/01/22 17:06> History of Present Illness Chief Complaint: Lower Extremity Injury Narrative Narrative: Patient presents today with pain to her left hip that she states is radiating down her left leg. She states she has had this pain since 10/26/22 and presented to the ED 10/27/22 for the same issue. She first noticed this pain the day after she had been mopping her kitchen and denies any injury to the left hip or left leg. She states she was given prednisone and a muscle relaxer after that ED visit but is still in pain and now has a tingling and numbness sensation in her left leg that she didn't have before. She states she talked to her PCP today who increased the dose of her muscle relaxer but she has not tried taking this dose yet. She is requesting a cortisone shot as this has worked for her in the past when she had hip pain. She is able to ambulate, however, it is painful. Patient has a past medical history of hypertension, hypothyroidism, GERD, hyperlipidemia, and atrial fibrillation. Patient states she is compliant with her Eliquis.? PFSH <ARBEN Yu - Last Filed: 11/01/22 17:06> [facility] Medical History (Updated 11/01/22 @ 16:34 by ABREN Yu) Carpal tunnel syndrome of left wrist Cephalgia CVA (cerebral vascular accident) Essential (primary) hypertension GERD (gastroesophageal reflux disease) History of stroke Hyperlipidemia, unspecified Hypokalemia Hypokalemia Hyponatremia Hypothyroid Received intravenous tissue plasminogen activator (tPA) in emergency department Home Medications coenzyme [id number] 100 mg-5 unit capsule 1 ea PO DAILY 03/02/17 [History Last Taken 03/20/17] B-complex with vitamin C 1 ea PO DAILY ##30 03/18/17 [Rx Last Taken 03/21/17] cholecalciferol (vitamin D3) 25 mcg (1,000 unit) tablet 1,000 unit PO BIDCM #60 tabs 03/18/17 [Rx Last Taken 03/21/17] sennosides 8.6 mg tablet 1 tab PO BID PRN PRN Constipation #30 tabs 03/24/17 [Rx Last Taken Unknown] loratadine 10 mg tablet (Claritin) 10 mg PO QDAY 12/19/17 [History Last Taken Unknown] levothyroxine 50 mcg tablet (Synthroid) 50 mcg PO DAILY 07/30/18 [History Last Taken Unknown] rosuvastatin 10 mg tablet 10 mg PO DAILY 07/30/18 [History Last Taken Unknown] lorazepam 0.5 mg tablet (Ativan) 0.5 mg PO DAILY PRN Anxiety 11/15/19 [History Last Taken Unknown] esomeprazole magnesium 40 mg capsule,delayed release (Nexium) 40 mg PO DAILY 11/19/21 [History Last Taken Unknown] losartan 100 mg tablet 100 mg PO DAILY #90 tabs 02/04/22 [Rx Last Taken Unknown] albuterol sulfate 90 mcg/actuation breath activated powder inhaler,sensor 2 inh inhalation Q4H PRN shortness of breath or wheezing #1 ea 08/04/22 [Rx Last Taken Unknown] azelastine 137 mcg (0.1 %) nasal spray aerosol 2 spray intranasal BID #30 mL 08/04/22 [Rx Last Taken Unknown] azelastine 137 mcg (0.1 %) nasal spray aerosol 2 spray intranasal BID #30 mL 08/04/22 [Rx Last Taken Unknown] molnupiravir 200 mg capsule (EUA) 800 mg PO Q12H 08/04/22 [History Last Taken Unknown] prednisone 20 mg tablet 40 mg PO DAILY 08/04/22 [History Last Taken Unknown] diltiazem HCl 360 mg capsule,extended release 24 hr 360 mg PO DAILY pt wants 90 day RX for next fill #90 caps 08/19/22 [Rx Last Taken Unknown] apixaban 2.5 mg tablet (Eliquis) See Rx Instructions .Route .COMPLEX #180 tabs 09/30/22 [Rx Last Taken Unknown] methocarbamol 500 mg tablet 500 mg PO 4X/DAY PRN PRN Muscle pain/spasm #40 tabs 10/27/22 [Rx Last Taken Unknown] ondansetron 4 mg disintegrating tablet 4 mg PO TID PRN nausea and vomiting #21 tabs 10/27/22 [Rx Last Taken Unknown] prednisone 20 mg tablet 20 mg PO DAILY 5 days #5 tabs 10/27/22 [Rx Last Taken Unknown] diphenhydramine HCl 25 mg tablet (Benadryl Allergy) 25 mg PO Q6H 5 days #20 tabs 11/01/22 [Rx Last Taken Unknown] ondansetron 4 mg disintegrating tablet 4 mg PO Q8H PRN nausea and vomiting #10 tabs 11/01/22 [Rx Last Taken Unknown] oxycodone-acetaminophen 5 mg-325 mg tablet (Endocet) 1 tab PO Q8H PRN pain 5 days #14 tabs 11/01/22 [Rx Last Taken Unknown] prednisone 20 mg tablet 40 mg PO DAILY 4 days #8 tabs 11/01/22 [Rx Last Taken Unknown] Allergy/AdvReac Type Severity Reaction Status Date / Time escitalopram [From Lexapro] Allergy Severe parasthesis Verified 09/04/22 07:30 Sulfa (Sulfonamide Allergy Unknown Verified 09/04/22 07:30 Antibiotics) verapamil HCl Allergy Other Verified 09/04/22 07:30 [From Covera-HS] simvastatin [From Zocor] AdvReac Severe Myalgias Verified 09/04/22 07:30 Family History Father Heart disease Emphysema of lung Surgical History History of hysterectomy History of tonsillectomy History of tubal ligation Status post Mohs surgery (~2011) Social History Smoking Status: Never smoker alcohol intake: never substance use type: does not use caffeine: Yes Type: coffee Number of servings: 2 what type of physical activity do you participate in: walking seatbelt use: always do you feel safe at home: Yes additional social history: [employer]-Retired ROS <ARBEN Yu - Last Filed: 11/01/22 17:06> ROS ED Constitutional Constitutional ED: Denies chills, fever(s) or sweats Eyes Eyes: Denies blurry vision or change in vision ENT ENT ED: Denies rhinorrhea or sore throat Cardiovascular Cardiovascular: Denies chest pain, palpitations or racing heartbeat Respiratory/Chest Respiratory/Chest: Denies cough, dyspnea or dyspnea on exertion Gastrointestinal Gastrointestinal: Denies abdominal pain, nausea or vomiting Genitourinary Genitourinary ED: Denies dysuria, hematuria or urinary frequency Musculoskeletal Musculoskeletal: Reports arthralgias; Denies back pain or neck pain Integumentary Denies abscess, Abrasions or rash Neurologic Neurologic: Denies headache(s) or weakness Psychiatric Psychiatric: Denies anxiety, depression or suicidal ideation EXAM <ARBEN Yu - Last Filed: 11/01/22 17:06> Physical Exam Const Vital Signs: 11/01/22 14:07 Temperature 98.9 F Temperature Source Temporal Pulse Rate 99 Respiratory Rate 20 H Blood Pressure 154/86 H Blood Pressure Mean 108 Pulse Ox 96 Oxygen Delivery Method Room Air Positive well nourished and well developed General Appearance ED: well developed and NAD HEENT Reports moist mucous membranes Eyes PERRL and EOMs intact bilaterally Neck supple Chest Wall inspection of chest normal Resp normal respiratory effort and clear to auscultation bilaterally Cardio regular rate, regular rhythm and no murmurs GI non-tender, non-distended and no masses Palpation: soft Extremity normal to inspection Extremity Narrative: Patient has limited range of motion to her left hip. There is no edema, ecchymosis, or deformity. There are no signs of trauma or infection. Patient's pelvis is stable. Some pain to palpation to the left greater trochanter. DP pulses 2+ bilaterally. Sensation intact bilaterally, capillary refill less than 3 seconds. General Extremety ED: Negative for edema General Extremity: Negative for edema Neuro oriented x3, CN's II-XII intact bilaterally and no sensory deficits noted Sensorium / Orientation: alert Motor Exam: strength 5/5 throughout Psych mental status grossly normal Skin no rashes or lesions noted, no wounds and skin turgor normal <Dr. Hansel Wilder MD - Last Filed: 11/01/22 17:14> Physical Exam Const Vital Signs: 11/01/22 14:07 Temperature 98.9 F Temperature Source Temporal Pulse Rate 99 Respiratory Rate 20 H Blood Pressure 154/86 H Blood Pressure Mean 108 Pulse Ox 96 Oxygen Delivery Method Room Air MDM <ARBEN Yu - Last Filed: 11/01/22 17:06> MDM MDM Narrative Medical decision making narrative: Patient presents with pain to her left hip that she has had since 10/26. The note from that visit has been reviewed and patient was diagnosed with greater trochanteric bursitis of left hip and acute lumbosacral myofascial strain. I agree with these diagnoses. She was given muscle relaxer as well as prednisone at this visit. X-ray of the left hip was obtained at that visit and I have reviewed it today. I do not feel that repeat imaging is necessary. I do not feel patient is having a DVT as she is compliant with her Eliquis. Patient is anxious here today and is refusing multiple different pain medications that we are offering her. Patient states that she wants to call her PCP to see if she is allowed to take these pain medications. Upon reexamination patient was unable to get a hold of her PCP but states she will try Percocet. She is afraid that she will get itching or be nauseous from this medicine. She has no known allergy to this medicine or to any opioids. To help ease her anxiety and prevent this from happening she has been given Benadryl and Zofran. We have also given her a short burst of a higher dose of steroids for 4 days. I have encouraged her to not to take the Ativan with the Percocet. I have told her to not take Tylenol with Percocet. Patient is understanding. I have given her a referral for orthopedics. Patient was provided with pain control here. She will be discharged home in stable condition. All of her questions as well as her family's questions have been answered. She has been given return instructions. Patient is compliant with plan. <Dr. Hansel Wilder MD - Last Filed: 11/01/22 17:14> [facility] Narrative Medical decision making narrative: Patient presents with pain to her left hip that she has had since 10/26. The note from that visit has been reviewed and patient was diagnosed with greater trochanteric bursitis of left hip and acute lumbosacral myofascial strain. I agree with these diagnoses. She was given muscle relaxer as well as prednisone at this visit. X-ray of the left hip was obtained at that visit and I have reviewed it today. I do not feel that repeat imaging is necessary. I do not feel patient is having a DVT as she is compliant with her Eliquis. Patient is anxious here today and is refusing multiple different pain medications that we are offering her. Patient states that she wants to call her PCP to see if she is allowed to take these pain medications. Upon reexamination patient was unable to get a hold of her PCP but states she will try Percocet. She is afraid that she will get itching or be nauseous from this medicine. She has no known allergy to this medicine or to any opioids. To help ease her anxiety and prevent this from happening she has been given Benadryl and Zofran. We have also given her a short burst of a higher dose of steroids for 4 days. Patient had an x-ray last time she was here, I thought about an MRI, however patient has a normal neurological exam with normal reflexes and no red flags therefore I do not believe she meets criteria for a stat MRI. I have encouraged her to not to take the Ativan with the Percocet. I have told her to not take Tylenol with Percocet. Patient is understanding. I have given her a referral for orthopedics. Patient was provided with pain control here. She will be discharged home in stable condition. We talked to the son and the who independently told us that she is able to get around the house, and that she is okay to go home, they also corroborated her history of present illness. All of her questions as well as her family's questions have been answered. She has been given return instructions. Patient is compliant with plan. Discharge Plan Triage Chief Complaint: Lower Extremity Injury ED Midlevel Provider: Josefa Marion ED Provider: Hansel Wilder Dx/Rx/DC Orders Clinical Impression: Greater trochanteric bursitis of left hip, Essential (primary) hypertension, Persistent atrial fibrillation, Current use of care home anticoagulation Instructions: ED Arthralgia Prescriptions: New oxycodone-acetaminophen [Endocet] 5-325 mg tablet 1 tab PO Q8H PRN (Reason: pain) 5 Days Qty: 14 0RF ondansetron 4 mg tablet,disintegrating 4 mg PO Q8H PRN (Reason: nausea and vomiting) Qty: 10 0RF diphenhydramine HCl [Benadryl Allergy] 25 mg tablet 25 mg PO Q6H 5 Days Qty: 20 0RF prednisone 20 mg tablet 40 mg PO DAILY 4 Days Qty: 8 0RF No Action loratadine [Claritin] 10 mg tablet 10 mg PO QDAY lorazepam [Ativan] 0.5 mg tablet 0.5 mg PO DAILY PRN (Reason: Anxiety) rosuvastatin 10 mg tablet 10 mg PO DAILY levothyroxine [Synthroid] 50 mcg tablet 50 mcg PO DAILY esomeprazole magnesium [Nexium] 40 mg capsule,delayed release(DR/EC) 40 mg PO DAILY coenzyme [id number] E 1 EACH capsule 1 ea PO DAILY Label Comments: VITAMIN REPLACEMENT cholecalciferol (vitamin D3) 1,000 UNIT tablet 1,000 unit PO BIDCM Qty: 60 0RF Label Comments: supplement B-complex with vitamin C 1 EACH tablet 1 ea PO DAILY Qty: 30 0RF Label Comments: supplement sennosides 1 TABLET tablet 1 tab PO BID PRN PRN (Reason: Constipation) Qty: 30 0RF Label Comments: stool softener prednisone 20 mg tablet 40 mg PO DAILY Label Comments: Take 2 tablets by mouth daily molnupiravir 200 mg Capsule 800 mg PO Q12H azelastine 137 mcg (0.1 %) aerosol,spray 2 spray intranasal BID Qty: 30 0RF Rx Instructions: administer into each nostril albuterol sulfate 90 mcg/actuation aero powdr breath act w/sensor 2 inh inhalation Q4H PRN (Reason: shortness of breath or wheezing) Qty: 1 1RF azelastine 137 mcg (0.1 %) aerosol,spray 2 spray intranasal BID Qty: 30 0RF Rx Instructions: administer into each nostril ondansetron 4 mg tablet,disintegrating 4 mg PO TID PRN (Reason: nausea and vomiting) Qty: 21 0RF prednisone 20 mg tablet 20 mg PO DAILY 5 Days Qty: 5 0RF methocarbamol 500 mg tablet 500 mg PO 4X/DAY PRN PRN (Reason: Muscle pain/spasm) Qty: 40 0RF losartan 100 mg tablet 100 mg PO DAILY Qty: 90 3RF diltiazem HCl 360 mg capsule,extended release 24hr 360 mg PO DAILY Qty: 90 3RF Eliquis 2.5 mg tablet See Rx Instructions .ROUTE .COMPLEX Qty: 180 3RF Dose Instruction: TAKE 1 TABLET TWICE A DAY Rx Instructions: TAKE 1 TABLET TWICE A DAY Primary Care Provider: Siva Juarez Referrals: Siva Juarez MD [Primary Care Provider] - Mark Subramanian DO [Med Staff - Active Staff] - 3-5 Days Activity Restrictions/Additional Instructions: Please follow-up with orthopedic doctor. Do not take the Ativan and Percocet together. Do not take any Tylenol while taking Percocet. You can continue taking the muscle relaxer. Please return if symptoms worsen. Disposition Disposition: Home, Self Care Discharge Date/Time: 11/01/22 16:18
== END 2022-11-01 16:18 | disposition home or self-care (01) ==
PROVIDERS: Emergency Provider Emergency Medicine; PCP Family Medicine; Visit Provider Emergency Medicine
DX: M70.62 Trochanteric bursitis, left hip (principal); I48.19 Other persistent atrial fibrillation; S39.012A Strain of muscle, fascia and tendon of lower back, initial encounter; I10 Essential (primary) hypertension; Z79.01 Long term (current) use of anticoagulants; E78.5 Hyperlipidemia, unspecified; Z79.52 Long term (current) use of systemic steroids; X58.XXXA Exposure to other specified factors, initial encounter
CPT/HCPCS: 99283

== ENCOUNTER → 2022-11-25 | Outpatient (CLI) | payer MEDICARE, SELFPAY ==
--- NOTE | 2022-11-25 13:19 | RAD_ITS ---
EXAM: XR ABDOMEN, 2 VIEWS AND XR CHEST, 1 VIEW CLINICAL INDICATION: abd pain TECHNIQUE: Frontal view of the chest, frontal view of the abdomen/pelvis and upright or decubitus view of the abdomen. This report was created using [employer] report generation technology. COMPARISON: None. FINDINGS: CHEST: LUNGS AND PLEURAL SPACES: There is no demonstrated pleural abnormality. No pneumothorax. No effusion. HEART: Unremarkable. Cardiac silhouette not enlarged. MEDIASTINUM: Central airways and mediastinal contour are unremarkable. ABDOMEN: INTRAPERITONEAL SPACE: No free air. GASTROINTESTINAL TRACT: Unremarkable. Non-obstructive. No bowel or stomach distention. ORGANS: There are calcified phleboliths in the pelvis. This makes differentiation with distal ureteral stones difficult. No organomegaly. TUBES, LINES AND DEVICES: None. BONES/JOINTS: Degenerative change of the lumbar spine. SOFT TISSUES: No acute findings. VASCULATURE: Enlarged heart size. Normal mediastinum. Normal manoj. Prominent appearing increased interstitial lung markings. Normal visualized pulmonary arteries. There is atherosclerotic calcification of the aortic arch with tortuosity. There are diffuse degenerative changes of the visualized thoracic spine. There is degenerative osteoarthritis of the bilateral shoulders. RAD/Acute Abdomen Inc Chest IMPRESSION: No acute findings in the chest, abdomen or pelvis. Electronically Signed: Benoit Kaminski MD at 21:45 EST ,
== END | disposition home or self-care (01) ==
LOC: MTRAD 13:16
PROVIDERS: PCP Family Medicine; Referring Provider Family Medicine; Visit Provider Family Medicine
DX: R10.9 Unspecified abdominal pain (principal)
CPT/HCPCS: 74022

== ENCOUNTER 2023-01-02 14:30 | Outpatient (RCR) | payer MEDICARE, SELFPAY ==
--- NOTE | 2022-11-05 15:59 | HP.PTEVAL_ITS ---
Patient's Visit Information STEVE SAAVEDRA is a 82 year old F referred to Physical Therapy by Dr. Siva Juarez MD with a diagnosis of LUMAGO AND AND LEFT SI DYSFUNCTION. Date of Evaluation: 11/05/22 Physical Therapist: Bart Moreno, PT, Cert MDT, OCS - Visit Plan Frequency: 2x /Week Duration: 4 Weeks Plan: PATIENT MANY QUESTIONS ,PROVED HANDOUT WITH EX'S WILL NEED DIRECTION ON CONDTION AND ETIOLOGY OF PAIN. PT INTERVENTIONS LUMBAR FLEXION , DLS ,POSTURAL EX'S , AND MODALTIES FOR PAIN - Subjective This 81y/o female presents to physical with left LS pain. Patient had left LS pain ~ 1 1/2 week . Patient developed pain without mechanism of injury , although prior day was mopping floors. Patient went to ER last week had x-rays and oxycodone ,then another time morphine and prednisone. Patient stopped oxycodone and started muscle relaxer. Pain is better . Aggravating factors sleeping walking ,standing and lifting. Alleviating factors sitting and resting. Coughing/sneezing-.Bowel/bladder. C/O paresthesia anterior thigh. Pain affects sleeping. Patient symptoms affects QOL and function. SOCIAL: . VOCATION: retired - Pain Left Back Pain Intensity (Out of 10): 2 Pain Intensity Range: 10 - Objective POSTURE: mild forward posture. NEURO: c/o paresthesia/tingling left thigh ,reflexes L3-4,L4-5,L5-S1 1/3. GAIT: reciprocal pattern mild forward posture straight cane. PALPATION: tender SI/LS. FLEXABLITY: hamstrings min tight. LUMBAR ROM: flexion min loss ,extension mod/severe loss ,side glides mod loss. MMT: quads/hamstrings 4/5, hip flexion 4-/5 , ankle 5/5 - Special Tests L/S Slump test left side: Negative L/S Slump test right side: Negative L/S Left Straight Leg Raise: Negative L/S Right Straight Leg Raise: Negative Lumbar Standing: Flexion - Mechanical Response: No effect Lumbar Standing: Flexion - Symptoms During Testing: No effect Lumbar Standing: Flexion - Symptoms After Testing: No effect Lumbar Standing: Extension - Mechanical Response: No effect Lumbar Standing: Extension - Symptoms During Testing: No effect Lumbar Standing: Extension - Symptoms After Testing: No effect Lumbar Standing: Right Side Glides - Mechanical Response: No effect Lumbar Standing: Right Side [place] - Symptoms During Testing: No effect Lumbar Standing: Right Side [place] - Symptoms After Testing: No effect Lumbar Standing: Left Side [place] - Mechanical Response: No effect Lumbar Standing: Left Side [place] - Symptoms During Testing: No effect Lumbar Standing: Left Side [place] - Symptoms After Testing: No effect L Hip Scour: Positive L Hip Trendelenberg - Glut Medius: Positive L Hip [place] - IT Band: Positive - Balance/Special Test Scores Oswestry Low Back Score: 26 - Goals Goal 1:: Patient to be I with HEP for lumbar Goal Time Frame: 4-6 Weeks Goal 2:: Patient to demonstrate 50% improvement with decrease pain and improved function Goal Time Frame: 4-6 Weeks Goal 3:: Patient to improve lumbar ROM for function of recovery with ADL's and put on shoes. Goal Time Frame: 4-6 Weeks Goal 4:: Patient increase strength of left hip to improve function with ADL's and gait Goal Time Frame: 4-6 Weeks Goal 5:: Patient improve back oswestry 5 points or > to improve function. Goal Time Frame: 4-6 Weeks - Rehabilitation Potential Physical Therapy Diagnosis: This patient has left LS pain with positioning with sleeping and impairs function activities ADL's and housework thus benefit from skilled PT Rehabilitation Potential: Good - Anticipated Interventions Patient/Client Instruction: Educate patient on: Condition, Plan of Care For the Purpose of:: To decrease pain, To increase ROM, To improve muscle performance and motor function, To improve ability to perform ADL's, To increase tolerance to activity/condition/position, To improve performance and independence with ADL's, To improve ability of physical actions for home/community/work/leisure, To improve health of tissue, To decrease soft tissue restriction, To increase flexibility/ROM, To prevent re-injury, To improve tolerance to ADL's Therapeutic Exercise to Include: Strength training, Balance training, Body mechanics, Postural training, Flexibilty training, Passive ROM, Active ROM, Dynamic Lumbar Stabilization For the Purpose of:: To decrease pain, To increase ROM, To improve muscle performance and motor function, To improve ability to perform ADL's, To improve performance and independence with ADL's, To improve health of tissue, To decrease soft tissue restriction, To increase flexibility/ROM, To prevent re- injury, To improve tolerance to ADL's TENS: Yes IF ES: Yes Cryotherapy (ice pack, ice massage): Yes Thermo therapy (hot pack): Yes For the Purpose of:: To decrease pain, To improve nutrient delivery to tissue, To increase oxygenation perfusion, To improve health of tissue, To decrease soft tissue restriction, To improve tolerance to ADL's Thank you for the opportunity to evaluate your patient. For Medicare and Medicare HMO plans, please review the plan of care and approve it. It will need to be FAXED BACK to us at [phone] for Medicare purposes. For Medicare only, by signing this I certify the plan of care. Please let me know if there are questions or concerns regarding this plan of care. Physician Signature: Date:
--- NOTE | 2023-04-23 13:50 | HP.PTDCSUM_ITS ---
Discharge Summary D/C summary: It has been my pleasure to treat STEVE SAAVEDRA referred by Dr. Siva Juarez MD, with the diagnosis of LUMAGO AND AND LEFT SI DYSFUNCTION for a total of 9 visit(s). Discharge Date: Please see the following information for a summary of their discharge status. Subjective Subjective: Doing good Pain Left Back: Pain Intensity (Out of 10): 0 Overall Improvement % Improvement: 75 Objective Objective/Function: Did well with progression of strengthening and DLS appropri ate fatigue cuse for proper tech with ex's GOOD STRENGTH LUMBAR ROM WFL Goals Goal 1:: Patient to be I with HEP for lumbar Goal 2:: Patient to demonstrate 50% improvement with decrease pain and improved function Goal 3:: Patient to improve lumbar ROM for function of recovery with ADL's and put on shoes. Goal 4:: Patient increase strength of left hip to improve function with ADL's and gait Goal 5:: Patient improve back oswestry 5 points or > to improve function. Plan Plan: D/C D/C Information d/c sentence: If there are questions or concerns regarding this patient's physical therapy, please feel free to call me at [phone]. Thank you for the referral of this patient. Sincerely, Bart Moreno, PT, Cert MDT, OCS Balance/Gait/Functional tests Balance/Special Test Scores Oswestry Low Back Score: 6
== END 2023-01-02 19:00 | disposition home or self-care (01) ==
LOC: PT 14:30
PROVIDERS: PCP Family Medicine; Referring Provider Family Medicine; Visit Provider Family Medicine
DX: M99.04 Segmental and somatic dysfunction of sacral region (principal)
CPT/HCPCS: 97110; 97162

== ENCOUNTER → 2023-01-21 | Outpatient (CLI) | payer MEDICARE, SELFPAY ==
[2023-01-21 18:46] LABS: BNP,B-Type NATRIURETIC PEPTIDE 161.8 pg/mL (0-100)
[2023-01-21 18:51] LABS: Vitamin D,25 Hydroxy 81.7 ng/mL
[2023-01-21 19:00] LABS: Anion Gap 5 (5-15); BUN 20 mg/dL (7-18); Calcium,Total 8.8 mg/dL (8.5-10.1); Chloride 107 mmol/L (98-107); Creatinine, Serum 1.33 mg/dL (0.55-1.02); EST Glomerular Filtration Rate 41 mL/min (>60); Est Glom Filt Rate - Afr Amer 49 mL/min (>60); Glucose 94 mg/dL (74-106); Potassium 4.1 mmol/L (3.5-5.1); Sodium Level 138 mmol/L (136-145); T4 Free Direct 1.24 ng/dL (0.76-1.46); Thyroid Stim Hormone (TSH) 1.72 uIU/mL (0.358-3.74)
== END | disposition home or self-care (01) ==
LOC: MTLAB 16:19
PROVIDERS: PCP Family Medicine; Referring Provider Family Medicine; Visit Provider Family Medicine
DX: R06.9 Unspecified abnormalities of breathing (principal); N18.30 Chronic kidney disease, stage 3 unspecified; E03.9 Hypothyroidism, unspecified; E55.9 Vitamin D deficiency, unspecified
CPT/HCPCS: 80048; 82306; 83880; 84439; 84443

== ENCOUNTER → 2023-02-05 | Outpatient (CLI) | payer MEDICARE, SELFPAY ==
[2023-02-05 13:23] LABS: BNP,B-Type NATRIURETIC PEPTIDE 205.4 pg/mL (0-100)
[2023-02-05 13:24] LABS: Anion Gap 6 (5-15); BUN 20 mg/dL (7-18); BUN/Creat Ratio 14.2 RATIO (10-20); Calcium,Total 9.1 mg/dL (8.5-10.1); Chloride 104 mmol/L (98-107); Creatinine, Serum 1.41 mg/dL (0.55-1.02); EST Glomerular Filtration Rate 38 mL/min (>60); Est Glom Filt Rate - Afr Amer 46 mL/min (>60); Glucose 89 mg/dL (74-106); Sodium Level 138 mmol/L (136-145)
== END | disposition home or self-care (01) ==
LOC: MFPLAB 11:08
PROVIDERS: PCP Family Medicine; Visit Provider Family Medicine
DX: R60.9 Edema, unspecified (principal)
CPT/HCPCS: 36415; 80048; 83880

== ENCOUNTER → 2023-02-06 | Outpatient (CLI) | payer MEDICARE, SELFPAY ==
--- NOTE | 2023-02-06 12:46 | BI_ITS ---
MAMMOGRAPHY - BILATERAL SCREENING REASON FOR EXAM: Female, 82 years old. Routine annual screening examination. PERTINENT HISTORY: Aunt with breast cancer. TECHNIQUE: Digital bilateral breast katie (3D mammographic acquisition) in the CC and MLO projections. 2-D mediolateral oblique (MLO) and craniocaudad (CC) views of both breasts were obtained. CAD: Full Field Digital Mammography with Computer Added Detection was performed. COMPARISON: Comparison is made with prior study January 22, 2022 November 08, 2020. FINDINGS: Breast Composition: There are scattered areas of fibroglandular density. There are no dominant masses or suspicious calcifications. Stable small benign appearing bilateral axillary lymph. No other significant abnormalities are identified. There has been no significant change since the prior study. BI/SCRN MAMM (CAD)W/KATIE BILAT IMPRESSION: Stable bilateral screening mammogram. Yearly follow-up mammogram recommended. (A) ASSESSMENT CATEGORY: BIRADS Category 2: Benign. A letter regarding these results will be sent to the patient by the facility within 30 days. Approximately 10% of breast cancers are not detected by mammography. A normal mammogram should not delay biopsy of a clinically suspicious abnormality. [id number] Electronically Signed: Deion Mora MD at 14:28 EDT ,
--- NOTE | 2023-02-06 12:48 | BD_ITS ---
STUDY: DUAL ENERGY X-RAY ABSORPTIOMETRY / DXA REASON FOR EXAM: Female, 82 years old. [id number] TECHNIQUE: Bone Mineral Density (BMD) measurements of lumbar spine and bilateral hips were obtained. COMPARISON: Comparison is made with prior study dated January 31, 2021. FINDINGS: Lumbar Spine (L1-L4): g/cm2 (0.906) / T-score (-1.3) / Z-score (1.5) Findings are suggestive of osteopenia with a low fracture risk. Left Femur Total: g/cm2 (0.705) / T-score (-1.9) / Z-score (0.3) Left Femoral Neck: g/cm2 (0.544) / T-score (-2.7) / Z-score (-0.3) Right Femur Total: g/cm2 (0.713) / T-score (-1.9) / Z-score (0.4) Right Femoral Neck: g/cm2 (0.560) / T-score (-2.6) / Z-score (-0.2) The T-Scores on the most recent prior examination were: Lumbar Spine (L1-L4): There has been worsening of bone density since the previous examination. Left Femur Total: which represents a worsening of 8.7%. Right Femur Total: which represents a worsening of 5.7%. BD/Dexa Bone Density Study IMPRESSION: The patient is considered osteoporotic as outlined below according to World Tee Organization (WHO) criteria with a high fracture risk. There has been worsening of bone density since the previous examination. Reference Information: The T-score is the number of standard deviations above or below the standard which is normal for young adults at their peak bone mineral density. The World Health Organization (WHO) interprets the T-scores as follows: Above -1 Normal bone density Between -1 and -2.5 Osteopenia Equal to / or below -2.5 Osteoporosis As a practical clinical guideline, osteopenia may be graded as follows: Mild -1 through -1.5 Moderate -1.6 through -2.0 Severe -2.1 through -2.4 The Z-score is the number of standard deviations above or below age-matched controls. A Z-score of less than -1.5 would be considered abnormal. References: 1. NIH Osteoporosis and Related Bone Diseases www osteo.org 2. International Society for Clinical Densitometry www iscd.org 3. National Osteoporosis Foundation www nof.org Electronically Signed: Deion Mora MD at 13:52 EDT ,
== END | disposition home or self-care (01) ==
LOC: OPBI 12:44
PROVIDERS: PCP Family Medicine; Referring Provider Family Medicine; Visit Provider Family Medicine
DX: Z12.31 Encounter for screening mammogram for malignant neoplasm of breast (principal); Z78.0 Asymptomatic menopausal state
CPT/HCPCS: 77063; 77067; 77080

== ENCOUNTER 2023-02-18 14:30 | Outpatient (CLI) | payer MEDICARE, SELFPAY ==
[2023-02-18 18:34] LABS: Anion Gap 8 (5-15); BUN 23 mg/dL (7-18); BUN/Creat Ratio 17.8 RATIO (10-20); Chloride 105 mmol/L (98-107); Creatinine, Serum 1.29 mg/dL (0.55-1.02); EST Glomerular Filtration Rate 42 mL/min (>60); Est Glom Filt Rate - Afr Amer 51 mL/min (>60); Glucose 101 mg/dL (74-106); Magnesium 2.1 mg/dL (1.6-2.6); Phosphorus 3.5 mg/dL (2.5-4.9); Sodium Level 139 mmol/L (136-145); Thyroid Stim Hormone (TSH) 1.49 uIU/mL (0.358-3.74)
[2023-02-19 08:10] LABS: BNP,B-Type NATRIURETIC PEPTIDE 167.8 pg/mL (0-100)
[2023-02-19 08:11] LABS: PTHIN 66.4 pg/mL (18.4-80.1)
== END 2023-02-18 23:59 | disposition home or self-care (01) ==
LOC: MTLAB 14:31
PROVIDERS: PCP Family Medicine; Referring Provider Family Medicine; Visit Provider Family Medicine
DX: M81.0 Age-related osteoporosis without current pathological fracture (principal); R60.9 Edema, unspecified
CPT/HCPCS: 36415; 80048; 82306; 82330; 83735; 83880; 83970; 84100; 84443

== ENCOUNTER 2023-03-04 16:53 | Emergency (ER) | payer MEDICARE, SELFPAY ==
[2023-03-04 16:54] VITALS: BP 156/75; PULSE 95; RESP 18; TEMP 36.1; O2SAT 97; BMI 28.3
[2023-03-04 18:02] VITALS: BP 147/84; PULSE 80; RESP 17; TEMP 36.6; O2SAT 96
[2023-03-04 18:03] VITALS: O2SAT 96
--- NOTE | 2023-03-04 18:15 | EKG12_ITS ---
Test Reason : DYSRHYTHMIA Blood Pressure : / mmHG Vent. Rate : 091 BPM Atrial Rate : 098 BPM P-R Int : 000 ms QRS Dur : 078 ms QT Int : 392 ms P-R-T Axes : 000 010 059 degrees QTc Int : 482 ms Atrial fibrillation Nonspecific T wave abnormality Abnormal ECG Confirmed by ANITRA GUZMAN, EBONI ([id number]), city editor PATRICE PONCE ([id number]) on 03/06/2023 8:53:56 AM Referred By: ELEANOR Confirmed By:EBONI AYOUB MD
--- NOTE | 2023-03-04 18:16 | ED.VIS.DYS ---
HPI History of Present Illness Chief Complaint: Shortness of Breath Detail of Chief Complaint: Shortness of breath Informant: patient Narrative Narrative: Patient presents with shortness of breath has been ongoing for weeks. She has been seen by her primary care physician and then also seen by ENT who put a scope in her throat and thought she may have GERD and was started on Prevacid. Patient denies fever. She has had a dry cough. Today she had an episode while while working around the house she felt like she could not breathe and so she used her inhaler and called doctor's office who advised her to come to the ER to be evaluated. Patient had some mild discomfort in her chest today. Patient currently on Eliquis for history of A-fib and prior stroke. No history of CHF. [facility] Medical History (Updated 03/04/23 @ 19:[address] Latoya Alva, ) Carpal tunnel syndrome of left wrist Cephalgia CVA (cerebral vascular accident) Essential (primary) hypertension GERD (gastroesophageal reflux disease) History of stroke Hyperlipidemia, unspecified Hyponatremia Hypothyroid Received intravenous tissue plasminogen activator (tPA) in emergency department Home Medications coenzyme [id number] 100 mg-5 unit capsule 1 ea PO DAILY 03/02/17 [History Last Taken 03/20/17] B-complex with vitamin C 1 ea PO DAILY ##30 03/18/17 [Rx Last Taken 03/21/17] cholecalciferol (vitamin D3) 25 mcg (1,000 unit) tablet 1,000 unit PO BIDCM #60 tabs 03/18/17 [Rx Last Taken 03/21/17] levothyroxine 50 mcg tablet (Synthroid) 50 mcg PO DAILY 07/30/18 [History Last Taken Unknown] rosuvastatin 10 mg tablet 10 mg PO DAILY 07/30/18 [History Last Taken Unknown] lorazepam 0.5 mg tablet (Ativan) 0.5 mg PO DAILY PRN Anxiety 11/15/19 [History Last Taken Unknown] esomeprazole magnesium 40 mg capsule,delayed release (Nexium) 40 mg PO DAILY 11/19/21 [History Last Taken Unknown] albuterol sulfate 90 mcg/actuation breath activated powder inhaler,sensor 2 inh inhalation Q4H PRN shortness of breath or wheezing #1 ea 08/04/22 [Rx Last Taken Unknown] diltiazem HCl 360 mg capsule,extended release 24 hr 360 mg PO DAILY pt wants 90 day RX for next fill #90 caps 08/19/22 [Rx Last Taken Unknown] apixaban 2.5 mg tablet (Eliquis) See Rx Instructions .Route .COMPLEX #180 tabs 09/30/22 [Rx Last Taken Unknown] diphenhydramine HCl 25 mg tablet (Benadryl Allergy) 25 mg PO Q6H 5 days #20 tabs 11/01/22 [Rx Last Taken Unknown] losartan 100 mg tablet 100 mg PO DAILY #90 tabs 02/03/23 [Rx Last Taken Unknown] Allergy/AdvReac Type Severity Reaction Status Date / Time escitalopram [From Lexapro] Allergy Severe parasthesis Verified 03/04/23 16:57 Sulfa (Sulfonamide Allergy Unknown Verified 03/04/23 16:57 Antibiotics) verapamil HCl Allergy Other Verified 03/04/23 16:57 [From Covera-HS] simvastatin [From Zocor] AdvReac Severe Myalgias Verified 03/04/23 16:57 Family History Father Heart disease Emphysema of lung Surgical History History of hysterectomy History of tonsillectomy History of tubal ligation Status post Mohs surgery (~2011) Social History Smoking Status: Never smoker alcohol intake: never substance use type: does not use caffeine: Yes Type: coffee Number of servings: 2 what type of physical activity do you participate in: walking seatbelt use: always do you feel safe at home: Yes additional social history: Loc-Retired ROS ROS ED Review of Systems ROS Unobtainable: other Constitutional Constitutional ED: Reports lethargy; Denies chills, fever(s), sweats or weight loss Eyes Eyes: Denies blurry vision, change in vision or diplopia ENT ENT ED: Denies rhinorrhea or sore throat Cardiovascular Cardiovascular: Reports chest pain; Denies orthopnea or racing heartbeat Respiratory/Chest Respiratory/Chest: Reports dyspnea; Denies cough, dyspnea on exertion, orthopnea or sputum Gastrointestinal Gastrointestinal: Denies abdominal pain, diarrhea, nausea or vomiting Genitourinary Genitourinary ED: Denies dysuria, hematuria or urinary frequency Musculoskeletal Musculoskeletal: Denies arthralgias, back pain, myalgias or neck pain Integumentary Denies abscess, Abrasions or rash Neurologic Neurologic: Denies headache(s) or weakness Psychiatric Psychiatric: Denies anxiety, depression or suicidal thoughts Endocrine Endocrinology: Denies polydipsia, polyphagia or polyuria Hematologic/Lymphatic Hematologic/Lymphatic: Denies easy bleeding, easy bruising or lymphadenopathy Allergic/Immunologic Allergic/Immunologic ED: Denies mouth swelling, tongue swelling or urticaria EXAM Physical Exam Const Vital Signs: 03/04/23 16:54 03/04/23 18:02 03/04/23 18:03 Temperature 97 F L 98 F Temperature Source Temporal Temporal Pulse Rate 95 80 Respiratory Rate 18 17 Respiratory Effort Normal Non-Labored Respiratory Depth Normal Respiratory Pattern Normal Blood Pressure 156/75 H 147/84 H Blood Pressure Mean 102 105 Pulse Ox 97 96 Oxygen Delivery Method Room Air Room Air Room Air Positive well nourished and well developed General Appearance ED: well developed and NAD HEENT Reports TM's clear and moist mucous membranes normocephalic and atraumatic; Negative for trauma or tenderness Tympanic Membrane ED: Yes TM's clear Eyes PERRL and EOMs intact bilaterally General Eye ED: Negative for pale conjunctiva or scleral icterus Neck no lymphadenopathy, supple and no JVD General: Negative for tenderness Chest Wall inspection of chest normal and palpation of chest normal Chest: Negative for tenderness Resp normal respiratory effort and clear to auscultation bilaterally Effort and Inspection: Negative for respiratory distress or pain with movement Auscultation: Negative for rhonchi, wheezes or diminished lung sounds Cardio regular rate, regular rhythm, S1 normal heart sound, S2 normal heart sound and no murmurs Peripheral Pulses: pulses 2+ throughout GI normal to inspection, nondistended, normoactive bowel sounds, soft to palpation, non-tender, non-distended and no masses Back/Spine no CVA tenderness and no thoracic nor lumbar tenderness Extremity normal to inspection General Extremety ED: Negative for edema General Extremity: Negative for edema Neuro oriented x3, CN's II-XII intact bilaterally, no sensory deficits noted and gait normal Sensorium / Orientation: awake, alert, oriented to person, oriented to place and oriented to time Motor Exam: strength 5/5 throughout and strength abnormal Psych mental status grossly normal Skin no rashes or lesions noted and no wounds MDM MDM MDM Narrative Medical decision making narrative: Patient presents with shortness of breath that is been ongoing and being worked up. It was felt she may have GERD. Patient had an episode today where she felt more short of breath. In the differential would be infectious etiology versus cardiac etiology versus CHF versus anxiety. Patient had an EKG on arrival showed atrial fibrillation with a ventricular rate of [address] changes. CBC with differential showed a white count of 8.1 with hemoglobin of 13 and platelet count of 192. Chemistries unremarkable. BUN was 13 and creatinine 1.25. BNP was slightly elevated 216. Troponin was normal at 12. Patient already on Eliquis therefore I feel PE is less likely in the differential. This time patient in no respiratory distress. I feel there is a large component of anxiety. Patient will discuss with her PCP potentially getting on anxiety medicine in the long-term and she will continue to use her Ativan as needed. Patient advised to follow-up with her primary care physician within next 3 to 5 days. Lab Data Labs: Laboratory Results - last 24 hr 03/04/23 03/04/23 03/04/23 18:34 18:34 18:34 WBC 8.1 RBC 4.36 Hgb 13.1 Hct 39.7 MCV 91.1 MCH 30.0 MCHC 33.0 RDW Std Deviation 43.6 RDW Coeff of Bhavesh 13.1 Plt Count 192 MPV 10.7 Immature Gran % (Auto) 0.200 Neut % (Auto) 71.2 H Lymph % (Auto) 14.6 L Kane % (Auto) 11.8 H Eos % (Auto) 1.6 Baso % (Auto) 0.6 Absolute Neuts (auto) 5.8 Absolute Lymphs (auto) 1.19 Nucleated RBC % 0 Sodium 137 Potassium 3.4 L Chloride 102 Carbon Dioxide 25.0 Anion Gap 10 BUN 13 Creatinine 1.25 H Estim Creat Clear Calc 26.97 Est GFR (MDRD) Af Amer 53 L Est GFR (MDRD) Non-Af 43 L BUN/Creatinine Ratio 10.4 Glucose 102 Calcium 9.0 Troponin I High Sens 12 B-Natriuretic Peptide 216.6 H Radiography Diagnostic Testing: Clinical Impression(s) from Imaging Studies Chest X-Ray 03/04/23 18:49 IMPRESSION: No radiographic evidence of acute cardiopulmonary disease. Electronically Signed: Hansel Cope MD at 19:16 EDT , 1 view chest x-ray obtained interpreted by myself as no evidence of infiltrate or pneumothorax or acute disease process. Radiology in agreement. EKG Initial EKG: Attestation: I personally reviewed and interpreted this EKG as follows: Comments: Atrial fibrillation with a rate of 91 bpm with no acute ST segment changes Discharge Plan Triage Chief Complaint: Shortness of Breath ED Provider: Latoya Alva Dx/Rx/DC Orders Clinical Impression: Dyspnea, Anxiety Instructions: ED Anxiety Reaction, ED Dyspnea Prescriptions: No Action lorazepam [Ativan] 0.5 mg tablet 0.5 mg PO DAILY PRN (Reason: Anxiety) rosuvastatin 10 mg tablet 10 mg PO DAILY levothyroxine [Synthroid] 50 mcg tablet 50 mcg PO DAILY esomeprazole magnesium [Nexium] 40 mg capsule,delayed release(DR/EC) 40 mg PO DAILY coenzyme [id number] E 1 EACH capsule 1 ea PO DAILY Label Comments: VITAMIN REPLACEMENT cholecalciferol (vitamin D3) 1,000 UNIT tablet 1,000 unit PO BIDCM Qty: 60 0RF Label Comments: supplement B-complex with vitamin C 1 EACH tablet 1 ea PO DAILY Qty: 30 0RF Label Comments: supplement albuterol sulfate 90 mcg/actuation aero powdr breath act w/sensor 2 inh inhalation Q4H PRN (Reason: shortness of breath or wheezing) Qty: 1 1RF diphenhydramine HCl [Benadryl Allergy] 25 mg tablet 25 mg PO Q6H 5 Days Qty: 20 0RF diltiazem HCl 360 mg capsule,extended release 24hr 360 mg PO DAILY Qty: 90 3RF Eliquis 2.5 mg tablet See Rx Instructions .ROUTE .COMPLEX Qty: 180 3RF Dose Instruction: TAKE 1 TABLET TWICE A DAY Rx Instructions: TAKE 1 TABLET TWICE A DAY losartan 100 mg tablet 100 mg PO DAILY Qty: 90 3RF Primary Care Provider: Siva Juarez Referrals: Siva Juarez MD [Primary Care Provider] - 3-5 Days Disposition Disposition: Home, Self Care
--- NOTE | 2023-03-04 18:49 | RAD_ITS ---
INDICATION: Dyspnea EXAMINATION/TECHNIQUE: X-RAY - XR Chest 1 View COMPARISON: 11/25/2022 FINDINGS: LUNGS: No consolidation, edema or effusion. No pneumothorax. MEDIASTINUM AND CARDIOVASCULAR STRUCTURES: Cardiac silhouette not enlarged. Central airways and mediastinal contour are unremarkable. RAD/Chest 1 View (Portable) IMPRESSION: No radiographic evidence of acute cardiopulmonary disease. Electronically Signed: Hansel Cope MD at 19:16 EDT ,
[2023-03-04 18:54] LABS: Absolute Lymphocyte Count 1.19 X10^3/uL (0.83-4.51); Absolute Neutrophil Count 5.8 X10^3/uL (2.0-7.7); Basophil# 0.05 X10^3/uL; Basophil% 0.6 % (0-1); Eosinophil# 0.13 X10^3/uL; Eosinophils% 1.6 % (0-5); Hematocrit 39.7 % (37-47); Hemoglobin 13.1 g/dL (12.0-15.0); Lymphocyte # 1.19 X10^3/ul (0.83-4.51); Lymphocyte % 14.6 % (19-41); Mean Corpuscular Volume 91.1 fL (81-99); Mean Platelet Vol. 10.7 fl (6.2-12.0); Monocyte# 0.96 X10^3/uL; Monocyte% 11.8 % (0-10); NRBC Flagged by Analyzer 0 % (0-5); Neutrophil # 5.78 X10^3/uL (2.7-7.7); Neutrophil % 71.2 % (47-70); Platelet Count 192 K/mm3 (150-450); RBC Distribution Width CV 13.1 % (11.6-14.6); RBC Distribution Width SD 43.6 fl (35.1-43.9); Red Blood Count 4.36 M/mm3 (4.2-5.4); White Blood Count 8.1 K/mm3 (4.4-11.0)
[2023-03-04 19:17] LABS: BNP,B-Type NATRIURETIC PEPTIDE 216.6 pg/mL (0-100)
[2023-03-04 19:18] LABS: Anion Gap 10 (5-15); BUN 13 mg/dL (7-18); BUN/Creat Ratio 10.4 RATIO (10-20); Chloride 102 mmol/L (98-107); Creatinine, Serum 1.25 mg/dL (0.55-1.02); EST Glomerular Filtration Rate 43 mL/min (>60); Est Glom Filt Rate - Afr Amer 53 mL/min (>60); Estimated Creatinine Clearance 26.97 ml/min; Glucose 102 mg/dL (74-106); Potassium 3.4 mmol/L (3.5-5.1); Sodium Level 137 mmol/L (136-145); Troponin-I HS 12 pg/mL (3.0-54.0)
[2023-03-04 19:56] VITALS: BP 143/79; RESP 16; O2SAT 99
== END 2023-03-04 19:57 | disposition home or self-care (01) ==
PROVIDERS: Emergency Provider Emergency Medicine; PCP Family Medicine; Visit Provider Emergency Medicine
DX: R06.02 Shortness of breath (principal); F41.9 Anxiety disorder, unspecified; E78.5 Hyperlipidemia, unspecified; I10 Essential (primary) hypertension; K21.9 Gastro-esophageal reflux disease without esophagitis; Z79.899 Other long term (current) drug therapy
CPT/HCPCS: 71045; 80048; 83880; 84484; 85025; 93005; 99284; A4216

== ENCOUNTER → 2023-03-20 | Outpatient (CLI) | payer MEDICARE, SELFPAY ==
--- NOTE | 2023-03-20 13:38 | PFTCOMP_ITS ---
Complete pulmonary function test report Date of study: March 20, 2023 Referring physician: Dr. Juarez indication: Cough Smoking history: None Pre and postbronchodilator spirometry was near normal: 1. No clear evidence of airway obstruction. The FEV1/FVC was 69% predicted, FEV1 was 91% predicted, FVC is 96% predicted. 2. No response to bronchodilator 3. Review of the flow volume loop corroborates no significant airway obstruction. 4. The test met technical standards of acceptability and reproducibility. The educational technician comments indicated a good patient effort. 5. If further evaluation of possible reactive airways disease as clinically indicated, methacholine challenge testing is recommended. Lung volumes by plethysmography were normal: 1. No evidence of restriction or hyperinflation. Diffusing capacity by single breath carbon monoxide technique was normal: 1. DLCO was 92% predicted, DL/VA was 159% predicted. Jozef Mei MD [facility] Pulmonary Medicine [facility] March 20, 2023, 1420 hrs.
== END | disposition home or self-care (01) ==
LOC: PSN 10:40
PROVIDERS: PCP Family Medicine; Referring Provider Family Medicine; Visit Provider Family Medicine
DX: J45.909 Unspecified asthma, uncomplicated (principal)
CPT/HCPCS: 94060; 94726; 94729

== ENCOUNTER → 2023-03-27 | Outpatient (CLI) | payer MEDICARE, SELFPAY ==
[2023-04-02 03:07] LABS: Alternaria tenuis <0.10 kU/L (Class 0); Ash, White <0.10 kU/L (Class 0); Aspergillus fumigatus <0.10 kU/L (Class 0); Bermuda Grass <0.10 kU/L (Class 0); Birch <0.10 kU/L (Class 0); Black Walnut <0.10 kU/L (Class 0); Cat Hair / Dander,Stand <0.10 kU/L (Class 0); Cedar, Mountain <0.10 kU/L (Class 0); Cladosporium herbarum <0.10 kU/L (Class 0); Cockroach, American <0.10 kU/L (Class 0); Cottonwood <0.10 kU/L (Class 0); D farinae Mite <0.10 kU/L (Class 0); D pteronyssinus <0.10 kU/L (Class 0); Dog Epithelia <0.10 kU/L (Class 0); Elm, American White <0.10 kU/L (Class 0); Immunoglobulin E 7 IU/mL (6-495); Maple/Box Elder <0.10 kU/L (Class 0); Mouse Urine <0.10 kU/L (Class 0); Mulberry, White <0.10 kU/L (Class 0); Oak, White <0.10 kU/L (Class 0); Pecan <0.10 kU/L (Class 0); Penicillium Notatum <0.10 kU/L (Class 0); Pigweed, Rough <0.10 kU/L (Class 0); Ragweed, Short/Common <0.10 kU/L (Class 0); Russian Thistle <0.10 kU/L (Class 0); Sheep Sorrel <0.10 kU/L (Class 0); Sycamore, American <0.10 kU/L (Class 0); Timothy Grass <0.10 kU/L (Class 0)
== END | disposition home or self-care (01) ==
LOC: LAB 12:17
PROVIDERS: PCP Family Medicine; Referring Provider Internal Medicine; Visit Provider Internal Medicine
DX: R05.3 Chronic cough (principal); R06.00 Dyspnea, unspecified
CPT/HCPCS: 36415; 82785; 83880; 86003

== ENCOUNTER → 2023-03-31 | Outpatient (CLI) | payer MEDICARE, SELFPAY ==
[2023-03-31 18:03] LABS: Anion Gap 9 (5-15); BUN 19 mg/dL (7-18); BUN/Creat Ratio 15.1 RATIO (10-20); Calcium,Total 9.6 mg/dL (8.5-10.1); Chloride 96 mmol/L (98-107); Creatinine, Serum 1.26 mg/dL (0.55-1.02); EST Glomerular Filtration Rate 43 mL/min (>60); Est Glom Filt Rate - Afr Amer 52 mL/min (>60); Glucose 98 mg/dL (74-106); Magnesium 2.3 mg/dL (1.6-2.6); Potassium 3.2 mmol/L (3.5-5.1); Sodium Level 134 mmol/L (136-145)
[2023-04-04 00:06] LABS: Alternaria tenuis <0.10 kU/L (Class 0); Ash, White <0.10 kU/L (Class 0); Aspergillus fumigatus <0.10 kU/L (Class 0); Bermuda Grass <0.10 kU/L (Class 0); Birch <0.10 kU/L (Class 0); Black Walnut <0.10 kU/L (Class 0); Cat Hair / Dander,Stand <0.10 kU/L (Class 0); Cedar, Mountain <0.10 kU/L (Class 0); Cladosporium herbarum <0.10 kU/L (Class 0); Cockroach, American <0.10 kU/L (Class 0); Cottonwood <0.10 kU/L (Class 0); D farinae Mite <0.10 kU/L (Class 0); D pteronyssinus <0.10 kU/L (Class 0); Dog Epithelia <0.10 kU/L (Class 0); Elm, American White <0.10 kU/L (Class 0); Immunoglobulin E 6 IU/mL (6-495); Maple/Box Elder <0.10 kU/L (Class 0); Mouse Urine <0.10 kU/L (Class 0); Mulberry, White <0.10 kU/L (Class 0); Oak, White <0.10 kU/L (Class 0); Pecan <0.10 kU/L (Class 0); Penicillium Notatum <0.10 kU/L (Class 0); Pigweed, Rough <0.10 kU/L (Class 0); Ragweed, Short/Common <0.10 kU/L (Class 0); Russian Thistle <0.10 kU/L (Class 0); Sheep Sorrel <0.10 kU/L (Class 0); Sycamore, American <0.10 kU/L (Class 0); Timothy Grass <0.10 kU/L (Class 0)
[2023-04-05 13:07] LABS: Immunoglobulin E 7 IU/mL (6-495)
== END | disposition home or self-care (01) ==
LOC: LAB 17:16
PROVIDERS: Internal Medicine; PCP Family Medicine; Referring Provider Nurse Practitioner Family; Visit Provider Nurse Practitioner Family
DX: T78.40XA Allergy, unspecified, initial encounter (principal); I48.19 Other persistent atrial fibrillation; R06.00 Dyspnea, unspecified; Z79.899 Other long term (current) drug therapy; X58.XXXA Exposure to other specified factors, initial encounter
CPT/HCPCS: 36415; 80048; 82785; 83735; 86003

== ENCOUNTER → 2023-04-02 | Outpatient (CLI) | payer MEDICARE, SELFPAY ==
[2023-04-02 11:46] LABS: Anion Gap 7 (5-15); BUN 19 mg/dL (7-18); BUN/Creat Ratio 12.9 RATIO (10-20); Calcium,Total 8.6 mg/dL (8.5-10.1); Chloride 97 mmol/L (98-107); Creatinine, Serum 1.47 mg/dL (0.55-1.02); EST Glomerular Filtration Rate 36 mL/min (>60); Est Glom Filt Rate - Afr Amer 44 mL/min (>60); Glucose 89 mg/dL (74-106); Potassium 3.6 mmol/L (3.5-5.1); Sodium Level 132 mmol/L (136-145)
== END | disposition home or self-care (01) ==
LOC: LAB 10:22
PROVIDERS: PCP Family Medicine; Referring Provider Family Medicine; Visit Provider Family Medicine
DX: I50.9 Heart failure, unspecified (principal)
CPT/HCPCS: 36415; 80048; 83880

== ENCOUNTER → 2023-04-10 | Outpatient (CLI) | payer MEDICARE, SELFPAY ==
[2023-04-10 12:30] LABS: ALB/GLOB Ratio 0.9 RATIO (0.9-2.4); AST(SGOT) 22 U/L (15-37); Alanine Aminotransfer ALT/SGPT 30 U/L (13-56); Albumin, Serum 3.4 g/dL (3.2-5.0); Alkaline Phosphatase 78 U/L (45-117); Anion Gap 6 (5-15); BUN 22 mg/dL (7-18); BUN/Creat Ratio 15.5 RATIO (10-20); Calcium,Total 8.9 mg/dL (8.5-10.1); Chloride 103 mmol/L (98-107); Creatinine, Serum 1.42 mg/dL (0.55-1.02); EST Glomerular Filtration Rate 38 mL/min (>60); Est Glom Filt Rate - Afr Amer 45 mL/min (>60); Globulin 3.6 g/dL (2.2-4.2); Glucose 94 mg/dL (74-106); Potassium 4.1 mmol/L (3.5-5.1); Sodium Level 136 mmol/L (136-145)
== END | disposition home or self-care (01) ==
LOC: MTLAB 09:58
PROVIDERS: PCP Family Medicine; Referring Provider Family Medicine; Visit Provider Family Medicine
DX: I50.9 Heart failure, unspecified (principal)
CPT/HCPCS: 36415; 80053

== ENCOUNTER → 2023-04-11 | Outpatient (CLI) | payer MEDICARE, SELFPAY ==
--- NOTE | 2023-04-11 17:30 | STRESSREP ---
Stress Test Report Pharmacologic myocardial perfusion stress test. 82-year-old lady with a history of atrial fibrillation and CHF Resting EKG demonstrates atrial fibrillation with a rate of 77 bpm. Resting blood pressure is 122/62 mmHg. 0.4 mg of regadenoson was infused per usual protocol followed by rapid intravenous saline flush injection. Continuous EKG monitoring was performed. The maximum heart rate was 105 bpm which was 76% of max impacted heart rate the maximum workload was 1 metabolic equivalent. At rest there were no ST or T wave changes noted to suggest ischemia and at peak infusion nonspecific ST changes were noted which did not meet the criteria for ischemia. No clinical angina is noted. The final blood pressure was 120/60 mmHg. Myocardial perfusion protocol. 11.3 mCi of technetium 99m sestamibi was injected at rest. 0.4 mg of regadenoson was infused per usual protocol. At peak infusion 36 mCi of technetium 99m sestamibi was injected stress images were obtained stress and rest images were reconstructed and compared in the short axis vertical long and horizontal long axis. Gated images were also obtained. Perfusion SPECT analysis: Review of the stress images demonstrate normal uptake of tracer noted in all areas of the myocardium. The resting images similar demonstrated normal uptake of tracer noted in all areas of the myocardium. No areas of reversibility are noted to suggest ischemia and no previous infarct is noted. Gated SPECT analysis: The gated ejection fraction is 88%. Conclusion: Normal pharmacologic myocardial perfusion stress test. Preserved ejection fraction. Atrial fibrillation present
== END | disposition home or self-care (01) ==
LOC: CVS 06:38
PROVIDERS: PCP Family Medicine; Referring Provider Nurse Practitioner Family; Visit Provider Nurse Practitioner Family
DX: R06.00 Dyspnea, unspecified (principal); I11.0 Hypertensive heart disease with heart failure; I50.9 Heart failure, unspecified; I48.19 Other persistent atrial fibrillation; E78.5 Hyperlipidemia, unspecified
CPT/HCPCS: 78452; 93017; A9500; A4216; J2785

== ENCOUNTER → 2023-04-18 | Outpatient (CLI) | payer MEDICARE, SELFPAY ==
--- NOTE | 2023-04-18 12:24 | ECHOD_ITS ---
Reason For Study: CHF Procedure This was a 2D Doppler, Color Flow transthoracic echocardiogram. Exam performed in department. Left Ventricle Normal LV size. Mild concentric left ventricular hypertrophy. Apical false tendon noted. Left ventricular systolic function is normal. The estimated ejection fraction is 60 %. No regional wall motion abnormalities noted. Right Ventricle Normal RV size. Normal systolic function. Atria The left atrium is moderately enlarged. Normal right atrium. Mitral Valve Normal mitral valve. Tricuspid Valve Normal tricuspid valve. Mild tricuspid valve insufficiency. Pulmonary artery systolic pressure is 24 mmHg. Aortic Valve Normal aortic valve. Pulmonic Valve The pulmonic valve is not well visualized. Great Vessels Normal aortic root. The pulmonary artery is normal size. Normal inferior vena cava. Pericardium/Pleural No pericardial effusion. MMode/2D Measurements & Calculations LVIDd: 4.2 cm IVSd: 1.3 cm Ao root diam: 3.7 cm LVIDs: 2.8 cm LVPWd: 1.2 cm RVDd: 3.0 cm FS: 33.5 % LAV(MOD-bp): 76.4 ml LVAd ap4: 16.6 cm2 SV(MOD-sp4): 28.5 ml LAV(MOD-bp) Indexed: 46.1 ml/m2 LVLd ap4: 5.9 cm LAV(MOD-sp2): 71.2 ml EDV(MOD-sp4): 40.9 ml LAV(MOD-sp4): 78.4 ml EDV(sp4-el): 40.0 ml LVAs ap4: 8.2 cm2 LVLs ap4: 4.8 cm ESV(MOD-sp4): 12.4 ml ESV(sp4-el): 11.8 ml EF(MOD-sp4): 69.7 % EF(sp4-el): 70.5 % SV(sp4-el): 28.2 ml LA A4 area: 25.4 cm2 LA dimension(2D): 4.3 cm RA A4 area: 20.4 cm2 TAPSE: 1.8 cm Doppler Measurements & Calculations MV E max conner: 113.8 cm/sec Lat Peak E' Conner: 12.7 cm/sec Med Peak E' Conner: 6.7 cm/sec E/E' lat: 9.0 E/E' med: 16.9 Ao V2 max: 121.2 cm/sec LV V1 max: 106.5 cm/sec PA V2 max: 84.4 cm/sec Ao max P.9 mmHg LV V1 max P.5 mmHg Ao V2 mean: 84.1 cm/sec Ao mean P.3 mmHg Ao V2 VTI: 25.2 cm PI end-d conner: 126.5 cm/sec TR max conner: 233.6 cm/sec TR max P.8 mmHg ECHO/Echo Complete Interpretation Summary Normal LV size. Mild concentric left ventricular hypertrophy. Left ventricular systolic function is normal. The estimated ejection fraction is 60 %. Apical false tendon noted. Pulmonary artery systolic pressure is 24 mmHg. Ordering Physician: Fabiana Reich Referring Physician: Florian Juarez Performed By: Yoon Mcdermott, DARIN, RVT
== END | disposition home or self-care (01) ==
LOC: CVS 12:23
PROVIDERS: PCP Family Medicine; Referring Provider Family Medicine; Visit Provider Family Medicine
DX: I50.9 Heart failure, unspecified (principal); R06.02 Shortness of breath
CPT/HCPCS: 93306

== ENCOUNTER 2023-05-02 16:47 | Emergency (ER) | payer MEDICARE, SELFPAY ==
[2023-05-02 16:49] VITALS: BP 148/72; PULSE 87; RESP 14; TEMP 36.7; O2SAT 97; BMI 28.1
--- NOTE | 2023-05-02 19:53 | EDS_ITS ---
HPI <ALEXX Maddox - Last Filed: 05/02/23 21:11> History of Present Illness Chief Complaint: Chest Pain Narrative Narrative: Patient is a 82-year-old female with history of hypertension, hypothyroidism, atrial fibrillation on Eliquis, CHF who presents to the emergency department with a feeling of pressure in her chest, throat and ears. Patient states that she woke up with chest pain last evening. Is been ongoing throughout the day. Patient states that when she leans forward she has pressure in her chest throat and ears. She does have history of GERD. She states she does have a cough however is been chronic. Patient denies any other symptoms. Patient denies any dizziness, nausea, vomiting, fever or chills. PFSH <ALEXX Maddox - Last Filed: 05/02/23 21:11> [facility] Medical History Acute congestive heart failure Carpal tunnel syndrome of left wrist Cephalgia Chronic cough CVA (cerebral vascular accident) Essential (primary) hypertension GERD (gastroesophageal reflux disease) History of stroke Hyperlipidemia, unspecified Hyponatremia Hypothyroid Received intravenous tissue plasminogen activator (tPA) in emergency department Home Medications coenzyme [id number] E 100 mg-5 unit capsule 1 ea PO DAILY 03/02/17 [History Last Taken 03/20/17] B-complex with vitamin C 1 ea PO DAILY ##30 03/18/17 [Rx Last Taken 03/21/17] levothyroxine 50 mcg tablet (Synthroid) 50 mcg PO DAILY 07/30/18 [History Last Taken Unknown] lorazepam 0.5 mg tablet (Ativan) 0.5 mg PO DAILY PRN Anxiety 11/15/19 [History Last Taken Unknown] diltiazem HCl 360 mg capsule,extended release 24 hr 360 mg PO DAILY pt wants 90 day RX for next fill #90 caps 08/19/22 [Rx Last Taken Unknown] apixaban 2.5 mg tablet (Eliquis) See Rx Instructions .Route .COMPLEX #180 tabs 09/30/22 [Rx Last Taken Unknown] losartan 100 mg tablet 100 mg PO DAILY #90 tabs 02/03/23 [Rx Last Taken Unknown] fexofenadine 180 mg tablet 180 mg PO DAILY 03/27/23 [History Last Taken Unknown] ipratropium bromide 21 mcg (0.03 %) nasal spray 2 spray intranasal BID-TID PRN allergy symptoms #30 mL 03/27/23 [Rx Last Taken Unknown] lansoprazole 30 mg capsule,delayed release 30 mg PO DAILY 03/27/23 [History Last Taken Unknown] rosuvastatin 10 mg tablet (Crestor) 10 mg PO DAILY 03/27/23 [History Last Taken Unknown] cholecalciferol (vitamin D3) 25 mcg (1,000 unit) tablet 2,000 unit PO BIDCM 03/31/23 [History Last Taken Unknown] potassium chloride 20 mEq tablet,extended release 20 meq PO DAILY #60 tabs 04/01/23 [Rx Last Taken Unknown] Allergy/AdvReac Type Severity Reaction Status Date / Time escitalopram [From Lexapro] Allergy Severe parasthesis Verified 05/02/23 16:48 Sulfa (Sulfonamide Allergy Unknown Verified 05/02/23 16:48 Antibiotics) verapamil HCl Allergy Other Verified 05/02/23 16:48 [From Covera-HS] simvastatin [From Zocor] AdvReac Severe Myalgias Verified 05/02/23 16:48 Family History Father Heart disease Emphysema of lung Surgical History History of hysterectomy History of tonsillectomy History of tubal ligation Status post Mohs surgery (~2011) Social History Smoking Status: Never smoker alcohol intake: never substance use type: does not use caffeine: Yes Type: coffee Number of servings: 2 what type of physical activity do you participate in: walking seatbelt use: always do you feel safe at home: Yes additional social history: Loc-Retired ROS <ALEXX Maddox - Last Filed: 05/02/23 21:11> ROS ED ROS Narrative Constitutional: Negative for fever, chills, weight loss, weakness Eyes: Negative for vision loss, vision change, double vision ENT: Negative for any congestion. Positive for sore throat, ear pain/pressure worse with bending forward Cardiovascular: Negative for any tightness, palpitations. Positive for chest pain worse with bending forward Respiratory: Negative for any cough, sputum production, hemoptysis, dyspnea, dyspnea on exertion, orthopnea Gastrointestinal: Negative for any abdominal pain, nausea, vomiting, diarrhea, constipation, blood in stool, blood in vomit : Negative for any urinary frequency, dysuria, retention, blood in urine Muscle skeletal: Negative for any muscle joint pain, stiffness, myalgias, arthralgias, neck pain, back pain Neurological: Negative for any headache, syncope, numbness or tingling, dizziness Skin: Negative for any rashes, lumps, itching, abrasions, lacerations Psychiatric: Negative for any depression, anxiety, stress, suicidal ideation, homicidal ideation Hematologic: Negative for any easy bruising, excessive bruising, easy bleeding Allergies: Negative for any eczema, hives, rash EXAM <ALEXX Maddox - Last Filed: 05/02/23 21:11> Physical Exam Narrative Exam Narrative: Vital signs reviewed. HEET: Head normocephalic atraumatic, TMs clear bilaterally. Posterior pharynx is clear, moist mucous membranes. Nares clear bilaterally. Neck: Supple with no lymphadenopathy or tenderness. No signs of meningismus, negative jolt sign. Cardiac: Irregular rate rhythm no murmurs gallops or rubs, equal peripheral pulses bilaterally. Respiratory: Lungs clear to auscultation bilaterally. No chest tenderness. Abdomen: Soft, nontender, nondistended. No abdominal bruit or pulsatile masses. No hepatosplenomegaly Extremities: No peripheral edema, no signs of gross trauma or deformity. Active full range of motion of all extremities. Neuro: Cranial nerves II through XII intact, no focal neurological deficits. Skin: Clean dry and intact with no rash, purpura, petechiae, vesicles or pustules. Backs/flank: No CVA tenderness, no midline spinal tenderness, no deformity. Psych: Normal mood and affect. No SI, HI or acute psychosis. Const Vital Signs: 05/02/23 16:49 Temperature 98.1 F Temperature Source Temporal Pulse Rate 87 Respiratory Rate 14 Blood Pressure 148/72 H Blood Pressure Mean 97 Pulse Ox 97 Oxygen Delivery Method Room Air Positive well nourished and well developed General Appearance ED: well developed <Dr. Daljit Harrison MD - Last Filed: 05/02/23 20:42> Physical Exam Const Vital Signs: 05/02/23 16:49 Temperature 98.1 F Temperature Source Temporal Pulse Rate 87 Respiratory Rate 14 Blood Pressure 148/72 H Blood Pressure Mean 97 Pulse Ox 97 Oxygen Delivery Method Room Air [facility] <Hansel JohnsonJOAOC - Last Filed: 05/02/23 21:11> [facility] Lab Data Labs: Laboratory Results - last 24 hr 05/02/23 20:15 WBC 8.7 RBC 4.19 L Hgb 12.2 Hct 38.2 MCV 91.2 MCH 29.1 MCHC 31.9 L RDW Std Deviation 45.1 H RDW Coeff of Bhavesh 13.4 Plt Count 169 MPV 10.1 Immature Gran % (Auto) 0.300 Neut % (Auto) 75.1 H Lymph % (Auto) 12.0 L Hamilton % (Auto) 11.4 H Eos % (Auto) 0.7 Baso % (Auto) 0.5 Absolute Neuts (auto) 6.6 Absolute Lymphs (auto) 1.05 Nucleated RBC % 0 Sodium 138 Potassium 4.2 Chloride 107 Carbon Dioxide 25.0 Anion Gap 6 BUN 20 H Creatinine 1.22 H Estim Creat Clear Calc 27.63 Est GFR (MDRD) Af Amer 54 L Est GFR (MDRD) Non-Af 45 L BUN/Creatinine Ratio 16.4 Glucose 107 H Calcium 8.8 Total Bilirubin 0.50 AST 22 ALT 21 Alkaline Phosphatase 75 Troponin I High Sens 10 Total Protein 7.2 Albumin 3.3 Globulin 3.9 Albumin/Globulin Ratio 0.8 L Lipase 36 EKG Atrial fibrillation: Attestation: I personally reviewed and interpreted this EKG as follows: Interpretation: Atrial Fibrillation Comments: Atrial fibrillation, rate [address] elevation, no acute infarct noted. Treatment and Re-Evaluation :: Patient appears generally well, patient appears nontoxic, vital signs are stable. Patient presents to the emergency department with complaints of chest pressure, throat and ear pressure when she bends forward. Patient states that when she is sitting comfortably, it is at a 2. Patient says pain is better than what it was then earlier this morning. Patient has constant pain since 1 AM this morning. Patient received a full cardiac work-up. Patient did have relief of symptoms with GI cocktail. Patient's laboratory values showed normal CBC, chemistries were unremarkable. Patient's creatinine was 1.2 this is consistent with the patient's past laboratory values. Patient's troponin was negative at 10. At this time, EKG showed atrial flutter. This is again chronic for the patient she is on Eliquis. Chest x-ray two-view was unremarkable. At this time, there is no evidence suspect any ACS, [place]. Secondary to the patient having relief of symptoms with GI cocktail, patient likely be having GI, GERD issue. She is a patient of Dr. Judge's will follow- up with him. All questions answered, patient struck to return for any worsening symptoms. <Dr. Daljit Harrison MD - Last Filed: 05/02/23 20:42> [facility] MDM Narrative Medical decision making narrative: I have personally performed a face to face assessment of the patient and have reviewed the INNA Note. I performed a substantive portion of the visit including all aspects of the following. My dominguez findings include: History is 82-year-old female history of A-fib flutter with atypical nonexertional chest pain over the last 12 hours. Evaluated patient with her nurse practitioner. Exam is [well-appearing 82-year-old female. Vital signs stable afebrile. Pulse ox 97% room air no signs hypoxia. H EENT exam unremarkable. Lungs clear. Heart a flutter on the monitor. Abdomen soft nontender. Chest wall nontender. Moving all 4 extremities. Equal symmetrical radial pulses. Calves are nontender without edema. She is awake and alert.] Medical Decision Making [82-year-old atypical chest pain that does not sound cardiac in etiology. She undergo cardiac work-up. She is on Eliquis clinically she has no risk factors or history of PE or DVT.] Other additions or changes: [None] History & Record Review Discussion w/independent historian: Patient Additional record(s) reviewed:: Prior inpatient record, Prior outpatient record, Prior ED visit and Prior labs Lab Data Attestation: I reviewed the patient's lab results. Lab results narrative: CBC shows a white count 8. H&H 12 and 38. Platelets 169. Labs: Laboratory Results - last 24 hr 05/02/23 20:15 WBC 8.7 RBC 4.19 L Hgb 12.2 Hct 38.2 MCV 91.2 MCH 29.1 MCHC 31.9 L RDW Std Deviation 45.1 H RDW Coeff of Bhavesh 13.4 Plt Count 169 MPV 10.1 Immature Gran % (Auto) 0.300 Neut % (Auto) 75.1 H Lymph % (Auto) 12.0 L Hamilton % (Auto) 11.4 H Eos % (Auto) 0.7 Baso % (Auto) 0.5 Absolute Neuts (auto) 6.6 Absolute Lymphs (auto) 1.05 Nucleated RBC % 0 Sodium 138 Potassium 4.2 Chloride 107 Carbon Dioxide 25.0 Anion Gap 6 BUN 20 H Creatinine 1.22 H Estim Creat Clear Calc 27.63 Est GFR (MDRD) Af Amer 54 L Est GFR (MDRD) Non-Af 45 L BUN/Creatinine Ratio 16.4 Glucose 107 H Calcium 8.8 Total Bilirubin 0.50 AST 22 ALT 21 Alkaline Phosphatase 75 Troponin I High Sens 10 Total Protein 7.2 Albumin 3.3 Globulin 3.9 Albumin/Globulin Ratio 0.8 L Lipase 36 Discharge Plan Triage Chief Complaint: Chest Pain ED Midlevel Provider: Hansel Johnson ED Provider: Daljit Harrison Dx/Rx/DC Orders Clinical Impression: GERD (gastroesophageal reflux disease), Chest pain Instructions: ED GERD (Adult) Prescriptions: No Action lorazepam [Ativan] 0.5 mg tablet 0.5 mg PO DAILY PRN (Reason: Anxiety) levothyroxine [Synthroid] 50 mcg tablet 50 mcg PO DAILY fexofenadine 180 mg tablet 180 mg PO DAILY lansoprazole 30 mg capsule,delayed release(DR/EC) 30 mg PO DAILY rosuvastatin [Crestor] 10 mg tablet 10 mg PO DAILY ipratropium bromide 21 mcg (0.03 %) spray,non-aerosol 2 spray intranasal BID-TID PRN (Reason: allergy symptoms) Qty: 30 3RF Rx Instructions: administer into each nostril cholecalciferol (vitamin D3) 25 mcg (1,000 unit) tablet 2,000 unit PO BIDCM Patient Comments: supplement coenzyme [id number] E 1 EACH capsule 1 ea PO DAILY Patient Comments: VITAMIN REPLACEMENT B-complex with vitamin C 1 EACH tablet 1 ea PO DAILY Qty: 30 0RF Patient Comments: supplement diltiazem HCl 360 mg capsule,extended release 24hr 360 mg PO DAILY Qty: 90 3RF Eliquis 2.5 mg tablet See Rx Instructions .ROUTE .COMPLEX Qty: 180 3RF Dose Instruction: TAKE 1 TABLET TWICE A DAY Rx Instructions: TAKE 1 TABLET TWICE A DAY losartan 100 mg tablet 100 mg PO DAILY Qty: 90 3RF potassium chloride 20 mEq tablet extended release 20 meq PO DAILY Qty: 60 3RF Rx Instructions: 40meq with Lasix, 20meq with no Lasix Primary Care Provider: Siva Juarez Referrals: Siva Juarez MD [Primary Care Provider] - Dony Judge DO [Med Staff - Active Staff] - Activity Restrictions/Additional Instructions: Please use Mylanta as you need it. Please follow-up with Dr. Judge. Return fo r any worsening chest pain or shortness of breath Disposition Disposition: Home, Self Care
[2023-05-02 20:24] LABS: Absolute Lymphocyte Count 1.05 X10^3/uL (0.83-4.51); Absolute Neutrophil Count 6.6 X10^3/uL (2.0-7.7); Basophil# 0.04 X10^3/uL; Basophil% 0.5 % (0-1); Eosinophil# 0.06 X10^3/uL; Eosinophils% 0.7 % (0-5); Hematocrit 38.2 % (37-47); Hemoglobin 12.2 g/dL (12.0-15.0); Lymphocyte # 1.05 X10^3/ul (0.83-4.51); Mean Corp Hgb Conc 31.9 g/dL (32-36); Mean Corpuscular Hgb 29.1 pg (27.0-32.0); Mean Corpuscular Volume 91.2 fL (81-99); Mean Platelet Vol. 10.1 fl (6.2-12.0); Monocyte# 0.99 X10^3/uL; Monocyte% 11.4 % (0-10); NRBC Flagged by Analyzer 0 % (0-5); Neutrophil # 6.55 X10^3/uL (2.7-7.7); Neutrophil % 75.1 % (47-70); Platelet Count 169 K/mm3 (150-450); RBC Distribution Width CV 13.4 % (11.6-14.6); RBC Distribution Width SD 45.1 fl (35.1-43.9); Red Blood Count 4.19 M/mm3 (4.2-5.4); White Blood Count 8.7 K/mm3 (4.4-11.0)
[2023-05-02] MEDS: Mag Hydrox/Al Hydrox/Simeth 30 ML UDC PO (20:26)
--- NOTE | 2023-05-02 20:40 | RAD_ITS ---
INDICATION: shortness of breath EXAMINATION/TECHNIQUE: X-RAY - XR Chest 2 Views COMPARISON: 03/04/2023 FINDINGS: LIFE-SUPPORT AND LINES: 1. None HEART AND VESSELS: Cardiac silhouette is upper limit of normal without change. No evidence congestive failure. LUNGS AND PLEURAL SPACES: Bibasilar atelectasis without focal infiltrate, consolidation or effusion. No pulmonary mass is noted. MEDIASTINUM AND HILAR REGIONS: No masses adenopathy noted. No areas of calcification. Visualized upper airway is normal in position. BONY ELEMENTS: No acute bony changes noted. RAD/Chest PA and Lateral IMPRESSION: 1. Stable borderline cardiomegaly without congestive failure. 2. Bibasilar atelectasis without focal infiltrate consolidation or effusion. Electronically Signed: Brad Licea MD at 21:13 EDT ,
[2023-05-02 20:43] LABS: ALB/GLOB Ratio 0.8 RATIO (0.9-2.4); AST(SGOT) 22 U/L (15-37); Alanine Aminotransfer ALT/SGPT 21 U/L (13-56); Albumin, Serum 3.3 g/dL (3.2-5.0); Alkaline Phosphatase 75 U/L (45-117); Anion Gap 6 (5-15); BUN 20 mg/dL (7-18); BUN/Creat Ratio 16.4 RATIO (10-20); Calcium,Total 8.8 mg/dL (8.5-10.1); Chloride 107 mmol/L (98-107); Creatinine, Serum 1.22 mg/dL (0.55-1.02); EST Glomerular Filtration Rate 45 mL/min (>60); Est Glom Filt Rate - Afr Amer 54 mL/min (>60); Estimated Creatinine Clearance 27.63 ml/min; Globulin 3.9 g/dL (2.2-4.2); Glucose 107 mg/dL (74-106); Lipase 36 U/L (13-75); Potassium 4.2 mmol/L (3.5-5.1); Protein, Total 7.2 g/dL (6.4-8.2); Sodium Level 138 mmol/L (136-145); Troponin-I HS 10 pg/mL (3.0-54.0)
== END 2023-05-02 21:48 | disposition home or self-care (01) ==
PROVIDERS: Nurse Practitioner; Emergency Provider Emergency Medicine; PCP Family Medicine; Visit Provider Emergency Medicine
DX: K21.9 Gastro-esophageal reflux disease without esophagitis (principal); I11.0 Hypertensive heart disease with heart failure; I50.9 Heart failure, unspecified; I48.91 Unspecified atrial fibrillation; R07.9 Chest pain, unspecified; E78.5 Hyperlipidemia, unspecified; E03.9 Hypothyroidism, unspecified; Z79.01 Long term (current) use of anticoagulants; Z79.890 Hormone replacement therapy; Z79.899 Other long term (current) drug therapy; Z86.73 Personal history of transient ischemic attack (TIA), and cerebral infarction without residual deficits
CPT/HCPCS: 71046; 80053; 83690; 84484; 85025; 93005; 99283; A4216

== ENCOUNTER → 2023-05-13 | Outpatient (CLI) | payer MEDICARE, SELFPAY ==
--- NOTE | 2023-05-13 08:10 | RAD_ITS ---
EXAMINATION: Air contrast UPPER GI SERIES INDICATION: Female, 82 years gastroesophageal reflux. FLUOROSCOPY TIME (if supplied): (0:40) minutes/seconds. 9.44 mGy. 20 fluoroscopic images were obtained. TECHNIQUE: Radiographic and fluoroscopic images of the distal esophagus, stomach, and proximal small intestine were obtained following the oral ingestion of barium. COMPARISON: None. FINDINGS: There is no evidence for organomegaly, abnormal calcifications, or abnormal bowel gas pattern. The psoas margins and flank stripes are normal. The visualized osseous structures are normal. The mucosa of the esophagus, stomach and duodenum is normal in appearance without evidence for stricture, ulceration, mass or diverticulum. Small hiatal hernia without gastroesophageal reflux. The stomach and duodenum are unremarkable. RAD/Upper GI Dual Contrast IMPRESSION: Small hiatal hernia without gastroesophageal reflux. Electronically Signed: Deion Mora MD at 15:02 EDT ,
== END | disposition home or self-care (01) ==
LOC: RAD 07:47
PROVIDERS: PCP Family Medicine; Referring Provider Family Medicine; Visit Provider Family Medicine
DX: K21.9 Gastro-esophageal reflux disease without esophagitis (principal)
CPT/HCPCS: 74246

== ENCOUNTER → 2023-05-23 | Outpatient (CLI) | payer MEDICARE, SELFPAY ==
[2023-05-23 12:08] LABS: Vitamin B12 477 pg/mL (211-911)
[2023-05-28 02:07] LABS: Methylmalonic Acid Bld 191 nmol/L (0-378)
== END | disposition home or self-care (01) ==
LOC: LAB 11:05
PROVIDERS: PCP Family Medicine; Referring Provider Nurse Practitioner Family; Visit Provider Nurse Practitioner Family
DX: G62.9 Polyneuropathy, unspecified (principal)
CPT/HCPCS: 36415; 82607; 83921

== ENCOUNTER → 2023-06-09 | Outpatient (CLI) | payer MEDICARE, SELFPAY ==
[2023-06-09 18:35] LABS: BNP,B-Type NATRIURETIC PEPTIDE 204.7 pg/mL (0-100)
[2023-06-09 18:41] LABS: Anion Gap 7 (5-15); BUN 23 mg/dL (7-18); BUN/Creat Ratio 14.6 RATIO (10-20); Calcium,Total 9.2 mg/dL (8.5-10.1); Chloride 106 mmol/L (98-107); Creatinine, Serum 1.57 mg/dL (0.55-1.02); EST Glomerular Filtration Rate 33 mL/min (>60); Est Glom Filt Rate - Afr Amer 40 mL/min (>60); Glucose 91 mg/dL (74-106); Potassium 4.2 mmol/L (3.5-5.1); Sodium Level 139 mmol/L (136-145)
== END | disposition home or self-care (01) ==
LOC: MTLAB 15:40
PROVIDERS: PCP Family Medicine; Referring Provider Family Medicine; Visit Provider Family Medicine
DX: I50.9 Heart failure, unspecified (principal)
CPT/HCPCS: 36415; 80048; 83880

== ENCOUNTER → 2023-06-17 | Outpatient (CLI) | payer MEDICARE, SELFPAY ==
[2023-06-17 14:53] LABS: Anion Gap 5 (5-15); BUN 25 mg/dL (7-18); BUN/Creat Ratio 13.7 RATIO (10-20); Calcium,Total 8.8 mg/dL (8.5-10.1); Chloride 104 mmol/L (98-107); Creatinine, Serum 1.82 mg/dL (0.55-1.02); EST Glomerular Filtration Rate 28 mL/min (>60); Est Glom Filt Rate - Afr Amer 34 mL/min (>60); Glucose 149 mg/dL (74-106); Potassium 3.9 mmol/L (3.5-5.1); Sodium Level 140 mmol/L (136-145)
[2023-06-17 15:02] LABS: BNP,B-Type NATRIURETIC PEPTIDE 198.1 pg/mL (0-100)
== END | disposition home or self-care (01) ==
LOC: MTLAB 13:09
PROVIDERS: PCP Family Medicine; Referring Provider Family Medicine; Visit Provider Family Medicine
DX: I50.9 Heart failure, unspecified (principal)
CPT/HCPCS: 36415; 80048; 83880

== ENCOUNTER → 2023-07-07 | Outpatient (CLI) | payer MEDICARE, SELFPAY ==
[2023-07-07 16:00] LABS: Anion Gap 5 (5-15); BUN 23 mg/dL (7-18); BUN/Creat Ratio 16.8 RATIO (10-20); Calcium,Total 8.8 mg/dL (8.5-10.1); Chloride 106 mmol/L (98-107); Creatinine, Serum 1.37 mg/dL (0.55-1.02); EST Glomerular Filtration Rate 39 mL/min (>60); Est Glom Filt Rate - Afr Amer 47 mL/min (>60); Glucose 138 mg/dL (74-106); Potassium 3.8 mmol/L (3.5-5.1); Sodium Level 139 mmol/L (136-145); Thyroid Stim Hormone (TSH) 1.47 uIU/mL (0.358-3.74)
== END | disposition home or self-care (01) ==
PROVIDERS: PCP Family Medicine; Referring Provider Family Medicine; Visit Provider Family Medicine
DX: N18.30 Chronic kidney disease, stage 3 unspecified (principal); I50.9 Heart failure, unspecified
CPT/HCPCS: 36415; 80048; 84443

== ENCOUNTER → 2023-07-30 | Outpatient (CLI) | payer MEDICARE, SELFPAY ==
[2023-07-30 16:06] LABS: Anion Gap 5 (5-15); BUN 24 mg/dL (7-18); BUN/Creat Ratio 15.3 RATIO (10-20); Calcium,Total 9.4 mg/dL (8.5-10.1); Chloride 102 mmol/L (98-107); Creatinine, Serum 1.57 mg/dL (0.55-1.02); EST Glomerular Filtration Rate 33 mL/min (>60); Est Glom Filt Rate - Afr Amer 40 mL/min (>60); Glucose 93 mg/dL (74-106); Potassium 3.8 mmol/L (3.5-5.1); Sodium Level 138 mmol/L (136-145)
== END | disposition home or self-care (01) ==
LOC: LAB.FUTURE 13:06 → MTLAB 13:19
PROVIDERS: PCP Family Medicine; Referring Provider Nurse Practitioner Family; Visit Provider Nurse Practitioner Family
DX: N18.30 Chronic kidney disease, stage 3 unspecified (principal)
CPT/HCPCS: 36415; 80048

== ENCOUNTER → 2023-08-05 | Outpatient (CLI) | payer MEDICARE, SELFPAY | END | disposition home or self-care (01) | LOC: CVS 13:50 | PROVIDERS: PCP Family Medicine; Referring Provider Family Medicine; Visit Provider Family Medicine | DX: R06.02 Shortness of breath (principal) ==

== ENCOUNTER → 2023-08-13 | Outpatient (CLI) | payer MEDICARE, SELFPAY ==
--- NOTE | 2023-08-13 13:51 | SP.MBSS_ITS ---
Modified Barium Swallow Patient Information Study Date: 08/13/23 Study Time: 13:00 Direct Billable Minutes: 97 Total Minutes procedure & reportin Diagnosis: Dysphagia R13.10 Referring Physician: Siva Juarez Reason for Referral: Objectively assess swallow function, assess risk for aspiration, and determine recommendations for least restrictive diet textures and compensatory strategies to improve safety of swallow. Medical History: The patient is a 82-year-old female with PMH including CHF, headaches, chronic cough, CVA ? received tPA, HTN, belching, GERD (SEE EMR for full PMH). Per patient, she has had 4 CVAs, only able to recall the date of the most recent one, which was February 2017. She was referred for MBSS by her PCP, Dr. Tate, due to increased difficulty swallowing. She reports difficulty recently with GERD, which she manages with medication. She has EGD with Dr. Judge planned for tomorrow. She feels that she can't swallow her own saliva at times and that it helps to push up on her chin with her fingers and swallow. She has difficulty swallowing anything carbonated. Current Diet Ordered: Regular textures / Thin liquids Mental Status: WNL (Able to follow commands for evaluation; however, required multiple repetitions and thorough explanation for recommendations. CRACKING MACHINE OPERATOR provided handout of recommendations.) Respiratory Status: Oxygenating on Room Air Penetration-Aspiration Scale Penetration-Aspiration Scale: OBJECTIVE ASSESSMENT OF SWALLOW FUNCTION (QUANTITATIVE ? PER TRIAL): PENETRATION / ASPIRATION SCALE (MOSQUERA): 1 = does not enter airway 2 = enters airway/above vocal folds/ejected 3 = enters airway/above vocal folds/not ejected 4 = enters airway/contacts vocal folds/ejected 5 = enters airway/contacts vocal folds/not ejected 6 = enters airway/below vocal folds/ejected 7 = enters airway/below vocal folds/not ejected despite effort 8 = enters airway/below vocal folds/no effort VIDEOFLOROSCOPIC SCALE SCORE (MOSQUERA): Grade I = aspiration of material that has penetrated into the laryngeal vestibule, intact cough reflex Grade II = aspiration < 10 % of the bolus, intact cough reflex Grade III = aspiration of < 10 % of the bolus, reduced cough reflex or aspiration of > 10 % of the bolus, intact cough reflex Grade IV = aspiration of > 10 % of the bolus, reduced cough reflex Penetration-Aspiration Scale Score Thin Liquid via teaspoon: Result: 1= does not enter airway Thin Liquid via teaspoon Trial 2: Result: 2= enter airway/above vocal folds/ejected Thin Liquid via small single sip: cup: Result: 1= does not enter airway Thin liquids via sequential sips: cup - Esophageal screen: Result: 1= does not enter airway [place] Thick Liquid via small single sip: cup: Result: 1= does not enter airway Pudding via teaspoon: Result: 1= does not enter airway 1/4 Cookie - Esophageal screen: Result: 1= does not enter airway Thin liquid via sequential sips: straw - Esophageal screen: Result: 1= does not enter airway Oral Phase Labial Seal: No Labial Escape Tongue Control During Bolus Hold: Cohesive bolus between tongue to palatal seal Bolus Preparation/Mastication: Timely and efficient chewing and mashing Bolus Transport/Lingual Motion: Brisk tongue motion Oral Residue: Residue collection on oral structures (piecemeal deglutition of pudding and cookie) Pharyngeal Phase Initiation of Pharyngeal Swallow: Bolus head in pyriforms Soft Palate Elevation: No bolus between soft palate and pharyngeal wall Laryngeal Elevation: Comp. Superior move thyroid cart w/comp. apprx arytenoid cart-epig pet Anterior Hyoid Excursion: Complete anterior movement Epiglottic Movement: Complete inversion Laryngeal Vestibule Closure at Height of Swallow: Incomplete; narrow column of air/contrast in laryngeal vestibule (trace laryngeal penetration 1X with full ejection after the swallow) Pharyngeal Stripping Wave: Present - complete Pharyngoesophageal Segment Opening: Complete distension and complete duration; no obstruction of flow Tongue Base Retraction: Trace column of contrast between tongue base & post. pharyngeal wall Pharyngeal Residue: Trace residue within or on pharyngeal structures Esophageal Phase Esophageal Clearance: Minimal to no esophageal clearance Diagnosis/Impression Diagnosis: Oropharyngeal swallow functiong grossly WNL; Esophageal dysphagia R13.14 Impression: Oropharyngeal swallow function is grossly WNL. Swallow onset of sequential sips of thin liquids began with bolus head in the pyriforms; however, patient demonstrated good airway closure during the swallow. Trace laryngeal penetration with full ejection of thin liquids 1X, no aspiration observed. Trace pharyngeal residues after the swallow. The esophageal phase is primarily marked by... -CP bar at the level of C-5; however, it did not appear to impact bolus clearance. -Esophageal retention of cookie and thin liquids. Cookie had almost no esophageal clearance - retention and retrograde flow throughout the entire esophagus. Retention of cookie somewhat improved with two thin liquid washes; however, liquids did not fully empty through the lower esophageal sphincter either. Recommendations Diet: Thin Liquids (Thin liquids only prior to EGD planned for tomorrow, 08/14/2023. Patient okay to advance diet after EGD per Dr. Judge's recommendations.) Compensatory Strategies: Small Sips, Slow Rate, Sitting upright and Remain sitting upright for 30 minutes after PO intake Recommend Repeat Modified Barium Swallow: No Need for Skilled Speech Therapy Services: No Recommended Referrals: GI Consult (EGD planned for tomorrow, 08/14/2023. CRACKING MACHINE OPERATOR informed Dr. Judge's RN of recommendations of MBSS. RN to inform Dr. Judge.) Education Completed: 1. Described result of evaluation. Status Active ST Patient: Active Contact Information [facility] Speech Therapy:: Tarah Rosas M.A. [facility]-CRACKING MACHINE OPERATOR Speech-Language Pathologist [facility] [address] [place] [address] [email or web address] [phone]
== END | disposition home or self-care (01) ==
LOC: RAD 12:47
PROVIDERS: PCP Family Medicine; Referring Provider Family Medicine; Visit Provider Family Medicine
DX: R13.10 Dysphagia, unspecified (principal)
CPT/HCPCS: 74230; 92611

== ENCOUNTER 2023-08-14 09:55 | Day surgery (SDC) | payer MEDICARE, SELFPAY ==
[2023-08-14 10:23] VITALS: BP 117/56; PULSE 90; RESP 16; TEMP 36.8; O2SAT 96; BMI 25.4
[2023-08-14] MEDS: Lactated Ringers 1,000 ML 15 ML IV (10:45)
[2023-08-14 11:01] LABS: Bedside Glucose 88 mg/dL (74-106)
--- NOTE | 2023-08-14 11:30 | EGD_PTH ---
PATIENT: STEVE SAAVEDRA LOC: EN U#:[id number] AGE/SX: 82/F ROOM: RE08/14/[address]: Dr. Dony Judge DO : [id number] BED: DIS: 08/14/2023 SPEC #: [id number] RECD: 08/14/23 14:10 STATUS: NIMA ANY #: [id number] EDUARDO: 08/14/23 11:[address]: Dony Judge DEPT: SURGICAL PATHOLOGY RECD BY: Ibeth Mays ENTERED: 08/15/23 08:21 SP TYPE: EGD BIOPSY OT DR: Dr. Florian Juarez MD Tissues: Esophageal mucous membrane Procedures: Surgery Specimen Level IV HEADER OPERATION: EGD with biopsy and dilation PRE-OP DIAGNOSIS: Dysphagia, anemia TISSUE SUBMITTED: Distal esophagus biopsy MICROSCOPIC DIAGNOSIS Distal esophagus, biopsy: Fragments of gastroesophageal mucosa with chronic inflammation. Intestinal metaplasia (goblet cell metaplasia) not identified. See comment. SJ: 08/18/2023 COMMENT Alcian blue/PAS stain with matched control is used in the evaluation of the specimen. MICROSCOPIC DESCRIPTION Slides are reviewed. GROSS DESCRIPTION Received in fixative is one container labeled with the patient's name and designated distal esophagus biopsy. The specimen consists of multiple irregular fragments of light arthur soft tissue that in aggregate measure 0.8 x 0.8 x 0.1 cm. The specimen is totally submitted in one cassette. / ANITA:[email or web address] 08/15/2023 TC:3 CPT: 33723, 56535
--- NOTE | 2023-08-14 12:27 | HP.PCM_ITS ---
History and Physical Date of Admission: 08/14/23 82 F who presents to the office today for Basia Mondragon 38? PMH cephalgia, CVA, HTN, stroke, hypothyroid.? ? PCP workup ?XRay chest/abd 11.25.22 for abd pain?without acute/chronic finding.? ? *BGI established 11.28.22. [facility] ED with back pain where she was treated with pain medication and discharged. Returned to ED for additional pain management with pain medication, nausea management. She then had constipation with abdominal cramping for which she saw her PCP and was provided with MiraLAX. She is continuing to have constipation with intermittent cramping. Current BM look like goose poop and can be dark colored. She continues with MiraLAX QD. Prior to this situation she had normal BM each day. Narcotics stopped approximately five days after second presentation. Reports decreased urination frequency and amount.?Aloe vera and fiber choice, stop senna? Contact 12.24.22 with report of initial success with aloe vera and fiber. She then began having difficulty.?Recommend aloe vera BID and possibly lactulose. aloe vera, and fiber and possibly lactulose reports that she only took the lactulose a few times, but does take aloe daily. reports that she does not take fiber every day especially if her fiber in her diet day. Pt ask if there is anything natural for anxiety- vitamins i.e st rosa worth, calamine tea, dark chocolate. Aslo reports fingers are numb , right hand more numb, left leg numb knee up, is the d/t carpal or arthritis - or r/t afib. Reports taking vit b 6 and that shejust started vit b12, is this too much vit b? Might have taken a vit b complex pill as well. Having issues with leg cramps- takes coq10, had noticed sob-, cardiac doctor has helped with this. but notices that she has sob with walking and with basic activity, wondering what it is it related to. ROS Const Constitutional: No anorexia, fatigue, fever(s), weight change or sleep problems Eyes Eyes: No change in vision ENT ENT: No abnormal hearing, difficulty swallowing, mouth lesions, tongue swelling or throat swelling Resp Respiratory: No cough or shortness of breath Cardio Cardiology: No chest pain at rest, chest pain with exertion, shortness of breath or dyspnea on exertion Gastro GI: No difficulty swallowing Genitourinary-Female: No difficulty urinating or burning urination Musc Musculoskeletal: Positive for numbness and tingling Skin Skin: No hair loss in leg, yellowing of the eye, itchy eyes, rash, skin ulcer or skin swelling Neuro Neurology: Positive for numbness and tingling; No abnormal hearing Psych Psychiatric: Positive for anxiety Endo Endocrine: No fatigue or weight change Aller/Imm Allergy/Immunologic: No itchy eyes, throat swelling or tongue swelling Simon/Lymp Hematologic/Lymphatic: Positive for easy bruising Exam Const General: cooperative and comfortable Nutritional Appearance: average body habitus and well nourished HENMT Head: normal to inspection Ears: hearing grossly normal bilaterally Nose: external nose normal Face and sinus: normal facial exam Mouth: oral mucosae normal Throat: posterior oropharynx normal Eyes General: appearance normal, both eyes and all related structures Neck Neck: normal visual inspection Chest Chest palpation & inspection: normal inspection of the chest and normal palpatio n of entire chest wall Resp Effort & Inspection: normal respiratory effort Auscultation: Bilateral: Clear to Auscultation Cardio Palpation: normal PMI Rate: regular rate Rhythm: regular rhythm GI Inspection: normal to inspection Auscultation: normal bowel sounds Percussion: normal to percussion Palpation: no hepatosplenomegaly Skin General: no rashes or lesions noted Neuro General: patient alert Extrem General: normal to inspection Psych Affect: normal affect Quality Reporting Tobacco Screening ([facility] 138) Smoking Status: Never smoker Assessment and Plan Assessment and Plan (1) Constipation: Status: Chronic Qualifiers: Constipation type: chronic idiopathic constipation Qualified Code(s): K59.04 - Chronic idiopathic constipation Plan: Her presentation is 1 of 2 diagnosis. I think it is left lower quadrant abdominal pain after narcotics in a patient that has chronic constipation on Senokot S being acute mild diverticulitis. The literature says that for acute mild diverticulitis you do not need antibiotics as long as you have a proper bowel regimen. She has been using MiraLAX and has been having increased bowel movements after being constipated for several days. Diverticulitis 90% of the time presents itself with left lower quadrant abdominal pain in the setting of constipation. I reviewed her previous CT scan back this 6 years ago and it shows a lot of diverticulosis. 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 Also in the differential diagnosis is sigmoid colitis associated with diverticulosis. It is also called scad. SCAD can be defined as active chronic inflammation in colonic segments affected by DD, namely the occurrence of luminal mucosal inflammation, whether or not there is evidence of inflammation within and/or around the diverticula themselves. Most of the time we treat scad with antibiotics and anti-inflammatory such as mesalamine or 5-ASA medications. In this particular setting she is getting better with osmotic laxatives so I will not institute anti-inflammatory therapy in her at this time. I will add aloe vera plus Fiber Choice and have her stop her senna S. This can be associated with overflow incontinence especially in the setting of pandiverticular disease. She will let me know how she does on this new regimen in approximately 7 days. We may increase or decrease the Fiber Choice and aloe vera in order to make sure that she has 1-2 bowel movements a day without the use of stimulants. I also recommended Super greens, Licorice root and Ashwaganda for bowel health We will perform an upper endoscopy to evaluate her upper GI tract because she has received an see along with relation and takes Eliquis. She had a decrease in hemoglobin so we will evaluate upper GI tract for any signs of acute GI blood loss. I have examined the patient and the H&P has been reviewed. There are no clinical changes since date of exam.
[2023-08-14 12:50] VITALS: BP 117/56; BP 120/62; PULSE 81; RESP 16; TEMP 36.9; O2SAT 99
--- NOTE | 2023-08-14 12:53 | OP.CCLET_ITS ---
08/14/2023 Siav Juarez [address] [place] [address] Re : Upper GI endoscopy procedure for Basia Mondragon Dear Dr. Juarez This procedure was performed on August. My impressions and recommendations are as follows: Impressions : - Abnormal esophageal motility, suspicious for presbyesophagus. - Moderate Schatzki ring. Dilated. - Normal stomach. - Normal first portion of the duodenum. - Biopsies were taken with a cold forceps for evaluation of eosinophilic esophagitis. Recommendations : - Discharge patient to home. - Full liquid diet today. - No aspirin, ibuprofen, naproxen, or other non-steroidal anti-inflammatory drugs for 3 days after biopsy. - Await pathology results. My findings are described in the full procedure note, which is enclosed. If I can be of further assistance, please feel free to contact me at . Sincerely, Dony Judge, 08/14/2023 12:52:48 PM This report has been signed electronically.
--- NOTE | 2023-08-14 12:53 | OP.EGD_ITS ---
Patient Name: Basia Mondragon Procedure Date: 08/14/2023 12:25 PM Date of : 1940 Age: 82 Procedure: Upper GI endoscopy Indications: Dysphagia Providers: Dony Judge DO Medicines: Monitored Anesthesia Care Patient Profile: This is an 82 year old female. Refer to note in patient chart for documentation of history and physical. Patient has symptoms of dysphagia with both liquids and solids. Complications: No immediate complications. Procedure: Pre-Anesthesia Assessment: - Prior to the procedure, a History and Physical was performed, and patient medications and allergies were reviewed. The patient is competent. The risks and benefits of the procedure and the sedation options and risks were discussed with the patient. All questions were answered and informed consent was obtained. Patient identification and proposed procedure were verified by the physician in the pre-procedure area. Mental Status Examination: alert and oriented. Airway Examination: normal oropharyngeal airway and neck mobility. CV Examination: normal. Prophylactic Antibiotics: The patient does not require prophylactic antibiotics. Prior Anticoagulants: The patient has taken no anticoagulant or antiplatelet agents. After reviewing the risks and benefits, the patient was deemed in satisfactory condition to undergo the procedure. The anesthesia plan was to use monitored anesthesia care (MAC). Immediately prior to administration of medications, the patient was re-assessed for adequacy to receive sedatives. The heart rate, respiratory rate, oxygen saturations, blood pressure, adequacy of pulmonary ventilation, and response to care were monitored throughout the procedure. The physical status of the patient was re-assessed after the procedure. After obtaining informed consent, the endoscope was passed under direct vision. Throughout the procedure, the patient's blood pressure, pulse, and oxygen saturations were monitored continuously. The Endoscope was introduced through the mouth, and advanced to the second part of duodenum. The upper GI endoscopy was accomplished without difficulty. The patient tolerated the procedure well. Scope In: 12:36:21 PM Scope Out: 12:44:15 PM Total Procedure Duration Time 0 hours 7 minutes 54 seconds Findings: Abnormal motility was noted at the cricopharyngeus. The cricopharyngeus was abnormal. There is spasticity of the esophageal body. The distal esophagus/lower esophageal sphincter is spastic, but gives up passage to the endoscope. Tertiary peristaltic waves are noted. Biopsies were obtained from the proximal and distal esophagus with cold forceps for histology of suspected eosinophilic esophagitis. A moderate Schatzki ring was found in the lower third of the esophagus. A guidewire was placed and the scope was withdrawn. Dilation was performed with a Savary dilator with no resistance at 51 Fr. The dilation site was examined and showed moderate improvement in luminal narrowing. The entire examined stomach was normal. The first portion of the duodenum was normal. Impression: - Abnormal esophageal motility, suspicious for presbyesophagus. - Moderate Schatzki ring. Dilated. - Normal stomach. - Normal first portion of the duodenum. - Biopsies were taken with a cold forceps for evaluation of eosinophilic esophagitis. Recommendation: - Discharge patient to home. - Full liquid diet today. - No aspirin, ibuprofen, naproxen, or other non-steroidal anti-inflammatory drugs for 3 days after biopsy. - Await pathology results. Procedure Code(s): --- Professional --- 78296, Esophagogastroduodenoscopy, flexible, transoral; with insertion of guide wire followed by passage of dilator(s) through esophagus over guide wire 98303, 59,51, Esophagogastroduodenoscopy, flexible, transoral; with biopsy, single or multiple CPT copyright 2021 [employer]. All rights reserved. The codes documented in this report are preliminary and upon wrapper stripper review may be revised to meet current compliance requirements. Dony Judge DO 08/14/2023 12:52:48 PM This report has been signed electronically. Number of Addenda: 0 Note Initiated On: 08/14/2023 12:25 PM
[2023-08-14 12:55] VITALS: BP 117/56; BP 121/62; PULSE 83; RESP 18; O2SAT 99
[2023-08-14 13:00] VITALS: BP 117/56; BP 127/68; PULSE 76; RESP 16; O2SAT 100
[2023-08-14 13:05] VITALS: BP 117/56; BP 129/73; PULSE 83; RESP 16; TEMP 36.4; O2SAT 99
[2023-08-14 13:50] VITALS: BP 117/56
== END 2023-08-14 13:57 | disposition home or self-care (01) ==
LOC: EN 09:57 → AC 10:01
PROVIDERS: PCP Family Medicine; Referring Provider Family Medicine; Visit Provider Internal Medicine Gastroenterology
PROC: 0DJ08ZZ Inspection of Upper Intestinal Tract, Via Natural or Artificial Opening Endoscopic (ICD-10-PCS; CPT 43235; principal; 2023-08-14 11:25)
DX: K21.00 Gastro-esophageal reflux disease with esophagitis, without bleeding (principal); K59.04 Chronic idiopathic constipation; I10 Essential (primary) hypertension; Z86.73 Personal history of transient ischemic attack (TIA), and cerebral infarction without residual deficits; K22.2 Esophageal obstruction; Z79.01 Long term (current) use of anticoagulants; Z79.899 Other long term (current) drug therapy; E78.5 Hyperlipidemia, unspecified; K30 Functional dyspepsia
CPT/HCPCS: 43248; 43239; 82962; 88305; J7120; C1769; J2405

== ENCOUNTER → 2023-10-28 | Outpatient (CLI) | payer MEDICARE, SELFPAY ==
--- OUTSIDE RECORDS SUMMARY | 2023-10-28 17:41 | XMS RPT_ITS | CCD ---
Author Name Unknown Address [address] [place] [address] Organization [facility] Care Team Providers Care Pharmacy Graduate Intern Name Role Phone Florian Juarez MD Primary Care Provider Florian Juarez MD Unavailable Allergies Allergy Classification Reported Allergen(s) Allergy Type Date of Onset Reaction(s) Facility (1 source) Acetaminophen / Codeine Drug Allergy 03-03-2012 [facility] (1 source) Sulfonamides (Antibiotic) Drug Allergy 10-24-2011 [facility] (1 source) Verapamil Drug Allergy 07-29-2005 Intolerance [facility] Medications Completed/Discontinued Medications Medication Drug Class(es) Dates Sig (Normalized) Sig (Original) [id number] 200 actuat albuterol 0.09 mg/actuat metered dose inhaler (1 source) beta2-Adrenergic Agonist Start: 11-12-2010 albuterol HFA (PROAIR HFA) 90 mcg/Actuation INHALATION inhaler as necessary 0 11/12/2010 Active Problems Active Problems Problem Classification Problem Date Documented Da te Episodic/Chronic Nonmalignant breast conditions (1 source) Fibrocystic disease of breast; Translations: [Diffuse cystic mastopathy of unspecified breast] Onset: 08-09-2008 08-09-2008 Chronic Other bone disease and musculoskeletal deformities (1 source) Osteopenia; Translations: [Other specified disorders of bone density and structure, unspecified site] 07-30-2010 Episodic Past or Other Problems Problem Classification Problem Date Documented Date Episodic/Chronic Other and unspecified benign neoplasm (1 source) Benign neoplasm of colon; Translations: [Benign neoplasm of colon, unspecified] Onset: 04-06-2007 2015 Episodic Other and unspecified benign neoplasm (1 source) History of polyp of colon; Translations: [Personal history of colonic polyps] Onset: 07-30-2010 07-30-2010 Episodic Other non-epithelial cancer of skin (1 source) Malignant neoplasm of scalp; Translations: [Unspecified malignant neoplasm of skin of scalp and neck] Onset: 12-23-2011 05-26-2012 Episodic Residual codes; unclassified (1 source) Family history of malignant neoplasm of gastrointestinal tract; Translations: [Family history of malignant neoplasm of digestive organs] Onset: 04-06-2007 2015 Episodic Encounters Encounter Date Encounter Type Care Provider Facility Start: 09-16-2022 Telephone encounter Walter Russ MD Work Phone: Cardiology Plan of Treatment Date Care Activity Detail Author Start: 06-13-2022 Influenza vaccination INFLUENZA (#1) [facility] Start: 10-13-2021 ADVANCE DIRECTIVE DISCUSSION ADVANCE DIRECTIVE DISCUSSION [facility] Start: 10-13-2021 DEPRESSION ASSESSMENT DEPRESSION ASS ESSMENT [facility] Start: 2004 BONE DENSITY BONE DENSITY [facility] Start: 2004 PNEUMOCOCCAL: 65+ (1 - PCV) PNEUMOCOCCAL: 65+ (1 - PCV) [facility] Start: 1989 SHINGRIX VACCINE (1 of 2) AGUIRRE GRIX VACCINE (1 of 2) [facility] Start: 1984 DIABETES SCREEN DIABETES SCREEN [facility] Start: 1958 Urine microalbumin profile DTAP,TDAP ,TD (1 - Tdap) [facility] Start: 02-21-1941 COVID-19 VACCINE (#1) COVID-19 VACCI NE (#1) [facility] Payers Date Payer Category Payer Unknown MMO MMO [employer] NAL [id number] 2010-Present [phone] [address] [place] [address] Indemnity [id number] 2004 Medicare MEDICARE MEDICAR E A AND B [id number] 2004-Present [phone] [address] [address] [place] [address] Medicare [id number] Social History Date Type Detail Facility Start: 12-02-2011 Tobacco smoking stat us MAIS Never smoked tobacco [facility] Start: 12-02-2011 Tobacco use and exposure Smoke less tobacco non-user [facility] Start: 05-31-2022 Alcohol intake Current non-dr tuck pointer of alcohol (finding) [facility] Start: 1940 Sex Assigned At Not on file [facility] Additional Source Comments Source Comments (unrecognize d section and content) In the event this informatio n is protected by the Federal Confidentiality of Alcohol and Drug Abuse Patient Records regulations: The Federal rules restrict any use of the information to criminally investigate or prosecute any alcohol or drug abuse patient.[facility] Reason for Visit (unrecogniz ed section and content) Care Teams (unrecognized sec tion and content) FOR RECORDS PERTAINING TO PATIENTS WHO ARE OR HAVE BEEN ENROLLED IN A CHEMICAL DEPENDENCY/SUBSTANCEABUSE PROGRAM, SOME INFORMATION MAY BE OMITTED. This clinical summary was aggregated from multiple sources. Caution should be exercised in using it in the provision of clinical care. This summary normalizes information from multiple sources, and as a consequence, information in this document may materially change the coding, format and clinical context of patient data. In addition, data may be omitted in some cases. CLINICAL DECISIONS SHOULD BE BASED ON THE PRIMARY CLINICAL RECORDS. [facility]. provides no warranty or guarantee of the accuracy or completeness of information in this document.
[2023-10-28 18:04] LABS: Anion Gap 7 (5-15); BUN 40 mg/dL (7-18); Calcium,Total 9.1 mg/dL (8.5-10.1); Chloride 104 mmol/L (98-107); Creatinine, Serum 2.22 mg/dL (0.55-1.02); EST Glomerular Filtration Rate 22 mL/min (>60); Est Glom Filt Rate - Afr Amer 27 mL/min (>60); Glucose 95 mg/dL (74-106); Potassium 4.1 mmol/L (3.5-5.1); Sodium Level 140 mmol/L (136-145); Thyroid Stim Hormone (TSH) 2.16 uIU/mL (0.358-3.74)
== END | disposition home or self-care (01) ==
LOC: MFPLAB 15:46
PROVIDERS: PCP Family Medicine; Visit Provider Family Medicine
DX: I48.91 Unspecified atrial fibrillation (principal); N18.30 Chronic kidney disease, stage 3 unspecified
CPT/HCPCS: 36415; 80048; 84443

== ENCOUNTER → 2023-10-30 | Outpatient (CLI) | payer MEDICARE, SELFPAY ==
--- OUTSIDE RECORDS SUMMARY | 2023-10-30 12:07 | XMS RPT_ITS | CCD ---
Author Name Unknown Address [address] [place] [address] Organization [facility] Care Team Providers Care Oven Heater Helper Name Role Phone Florian Juarez MD Primary Care Provider Florian Juarez MD Unavailable Allergies Allergy Classification Reported Allergen(s) Allergy Type Date of Onset Reaction(s) Facility (1 source) Acetaminophen / Codeine Drug Allergy 03-03-2012 [facility] (1 source) Sulfonamides (Antibiotic) Drug Allergy 10-24-2011 [facility] (1 source) Verapamil Drug Allergy 07-29-2005 Intolerance [facility] Medications Completed/Discontinued Medications Medication Drug Class(es) Dates Sig (Normalized) Sig (Original) [id number] 200 actuat albuterol 0.09 mg/actuat metered dose [...] Author Start: 06-13-2022 Influenza vaccination INFLUENZA (#1) [facility] Start: 10-13-2021 ADVANCE DIRECTIVE DISCUSSION ADVANCE DIRECTIVE DISCUSSION [facility] Start: 10-13-2021 DEPRESSION ASSESSMENT DEPRESSION ASS ESSMENT [facility] Start: 2004 BONE DENSITY BONE DENSITY [facility] Start: 2004 PNEUMOCOCCAL: 65+ (1 - PCV) PNEUMOCOCCAL: 65+ (1 - PCV) [facility] Start: 1989 SHINGRIX VACCINE (1 of 2) AGUIRRE GRIX VACCINE (1 of 2) [facility] Start: 1984 DIABETES SCREEN DIABETES SCREEN [facility] Start: 1958 Urine microalbumin profile DTAP,TDAP ,TD (1 - Tdap) [facility] Start: [birth year]-1940 COVID-19 VACCINE (#1) COVID-19 VACCI NE (#1) [facility] Payers Date Payer Category Payer Unknown MMO MMO [employer] N[employer] [id number] 2010-Present [phone] [address] [place] [address] Indemnity [id number] 2004 Medicare MEDICARE MEDICAR E A AND B [id number] 2004-Present [phone] [address] [address] [place] [address] Medicare [id number] Social History Date Type Detail Facility Start: 12-02-2011 Tobacco smoking stat us NMIS Never smoked tobacco [facility] Start: 12-02-2011 Tobacco use and exposure Smoke less tobacco non-user [facility] Start: 05-31-2022 Alcohol intake Current non-dr armature winder of alcohol (finding) [facility] Start: 1940 Sex Assigned At Not on file [facility] Additional Source Comments Source Comments (unrecognize d section and content) In the event this informatio n is protected by the Federal Confidentiality of Alcohol and Drug Abuse Patient Records regulations: The Federal rules restrict any use of the information to criminally investigate or prosecute any alcohol or drug abuse patient.[facility] Reason for Visit (unrecogniz ed section [...] BE BASED ON THE PRIMARY CLINICAL RECORDS. [facility]. provides no warranty or guarantee of the accuracy or completeness of information in this document.
[2023-10-30 15:46] LABS: Hemoglobin 12.8 g/dL (12.0-15.0); Mean Corpuscular Hgb 29.9 pg (27.0-32.0); Mean Corpuscular Volume 93.5 fL (81-99); Mean Platelet Vol. 10.9 fl (6.2-12.0); Platelet Count 201 K/mm3 (150-450); RBC Distribution Width CV 14.5 % (11.6-14.6); RBC Distribution Width SD 49.6 fl (35.1-43.9); Red Blood Count 4.28 M/mm3 (4.2-5.4)
[2023-10-30 16:35] LABS: BNP,B-Type NATRIURETIC PEPTIDE 210.6 pg/mL (0-100)
[2023-10-30 16:36] LABS: Vitamin B12 673 pg/mL (211-911)
[2023-10-30 17:40] LABS: AST(SGOT) 19 U/L (15-37); Alanine Aminotransfer ALT/SGPT 20 U/L (13-56); Albumin, Serum 3.7 g/dL (3.2-5.0); Alkaline Phosphatase 69 U/L (45-117); Bilirubin, Direct 0.22 mg/dL (0.00-0.30); Cholesterol 171 mg/dL (200); Globulin 3.4 g/dL (2.2-4.2); High Density Lipoprotein 78 mg/dL; Protein, Total 7.1 g/dL (6.4-8.2); Triglycerides 86 mg/dL; Very Low Density Lipoprotein 17 mg/dL (5-40)
[2023-11-03 15:07] LABS: Free Kappa Light Chains 35.6 mg/L (3.3-19.4); Free Lambda Light Chains 18.8 mg/L (5.7-26.3); Vitamin B1, Thiamine 251.9 nmol/L (66.5-200.0)
== END | disposition home or self-care (01) ==
LOC: MFPLAB 11:46
PROVIDERS: Psychiatry & Neurology Neurology; PCP Family Medicine; Visit Provider Family Medicine
DX: I11.0 Hypertensive heart disease with heart failure (principal); I50.9 Heart failure, unspecified; I63.9 Cerebral infarction, unspecified; G62.9 Polyneuropathy, unspecified; E78.5 Hyperlipidemia, unspecified
CPT/HCPCS: 36415; 80061; 80076; 82607; 82746; 83880; 83883; 84425; 85027

== ENCOUNTER → 2023-11-03 | Outpatient (CLI) | payer MEDICARE, SELFPAY ==
[2023-11-03 18:02] LABS: Anion Gap 6 (5-15); BUN 31 mg/dL (7-18); Calcium,Total 9.4 mg/dL (8.5-10.1); Chloride 101 mmol/L (98-107); Creatinine, Serum 1.82 mg/dL (0.55-1.02); EST Glomerular Filtration Rate 28 mL/min (>60); Est Glom Filt Rate - Afr Amer 34 mL/min (>60); Glucose 93 mg/dL (74-106); Potassium 4.1 mmol/L (3.5-5.1); Sodium Level 137 mmol/L (136-145)
== END | disposition home or self-care (01) ==
LOC: MFPLAB 14:47
PROVIDERS: PCP Family Medicine; Visit Provider Family Medicine
DX: I10 Essential (primary) hypertension (principal)
CPT/HCPCS: 36415; 80048

== ENCOUNTER → 2023-12-03 | Outpatient (CLI) | payer MEDICARE, SELFPAY ==
--- OUTSIDE RECORDS SUMMARY | 2023-12-03 14:04 | XMS RPT_ITS | CCD ---
Author Name Unknown Address [address] [place] [address] Organization [facility] Care Team Providers Care Rotogravure Press Operator Name Role Phone Florian Juarez MD Primary Care Provider Florian Juarez MD Unavailable Allergies Allergy Classification Reported Allergen(s) Allergy Type Date of Onset Reaction(s) Facility (1 source) Acetaminophen / Codeine Drug Allergy 03-03-2012 [facility] (1 source) Sulfonamides (Antibiotic) Drug Allergy 10-24-2011 [facility] (1 source) Verapamil Drug Allergy 07-29-2005 Intolerance [facility] Medications Completed/Discontinued Medications Medication Drug Class(es) Dates Sig (Normalized) Sig (Original) [id number] 200 actuat albuterol 0.09 mg/actuat metered dose [...] Author Start: 06-13-2022 Influenza vaccination INFLUENZA (#1) [facility] Start: 10-13-2021 ADVANCE DIRECTIVE DISCUSSION ADVANCE DIRECTIVE DISCUSSION [facility] Start: 10-13-2021 DEPRESSION ASSESSMENT DEPRESSION ASS ESSMENT [facility] Start: 2004 BONE DENSITY BONE DENSITY [facility] Start: 2004 PNEUMOCOCCAL: 65+ (1 - PCV) PNEUMOCOCCAL: 65+ (1 - PCV) [facility] Start: 1989 SHINGRIX VACCINE (1 of 2) AGUIRRE GRIX VACCINE (1 of 2) [facility] Start: 1984 DIABETES SCREEN DIABETES SCREEN [facility] Start: 1958 Urine microalbumin profile DTAP,TDAP ,TD (1 - Tdap) [facility] Start: [birth year]-1940 COVID-19 VACCINE (#1) COVID-19 VACCI NE (#1) [facility] Payers Date Payer Category Payer Unknown MMO MMO [employer] NAL [id number] 2010-Present [phone] [place] [address] Indemnity [id number] 2004 Medicare MEDICARE MEDICAR E A AND B [id number] 2004-Present [phone] [address] [address] [place] [address] Medicare [id number] Social History Date Type Detail Facility Start: 12-02-2011 Tobacco smoking stat us ILIS Never smoked tobacco [facility] Start: 12-02-2011 Tobacco use and exposure Smoke less tobacco non-user [facility] Start: 05-31-2022 Alcohol intake Current non-dr wire drawer of alcohol (finding) [facility] Start: 1940 Sex Assigned At Not on file C [facility] Additional Source Comments Source Comments (unrecognize d section and content) In the event this informatio n is protected by the Federal Confidentiality of Alcohol and Drug Abuse Patient Records regulations: The Federal rules restrict any use of the information to criminally investigate or prosecute any alcohol or drug abuse patient.[facility] Reason for Visit (unrecogniz ed section [...] BE BASED ON THE PRIMARY CLINICAL RECORDS. [facility]. provides no warranty or guarantee of the accuracy or completeness of information in this document.
--- NOTE | 2023-12-03 14:51 | NEURO_ITS ---
NCS and/or EMG Patient Report Ordering Doctor: Adi Mcdaniel DATE OF SERVICE: 12/03/23 Basia presents for electrodiagnostic testing of the upper limbs. She reports numbness and tingling in both hands, worse on the right side. Electrodiagnostic findings: Right median motor nerve demonstrates prolonged distal latency with reduced amplitude and normal conduction velocity. Left median motor nerve demonstrates prolonged distal latency with normal amplitude and reduced conduction velocity. Normal ulnar motor response bilaterally. Normal median and ulnar F-waves. Absent right median sensory latency at the wrist. Prolonged median palmar latency bilaterally. Prolonged left median sensory latency at the wrist. Normal ulnar and radial sensory responses. Needle EMG testing was performed in the upper limbs. All muscles tested showed no evidence of denervation with normal motor unit action potentials. Electrodiagnostic impression: This is an abnormal study in the upper limbs 1. Electrodiagnostic findings suggestive of bilateral median mononeuropathy. This is suggestive of a moderate to advanced right carpal tunnel syndrome and a mild to moderate left carpal tunnel syndrome. Multi Select Codes Neurology Neurology Interp Codes: 97743-08 Musc test done w/n test comp (interp) (2) and 18637-55 [facility] cndj test 13/> studies (interp)
== END | disposition home or self-care (01) ==
LOC: PSN 13:17
PROVIDERS: PCP Family Medicine; Referring Provider Psychiatry & Neurology Neurology; Visit Provider Psychiatry & Neurology Neurology
DX: R20.0 Anesthesia of skin (principal); R20.2 Paresthesia of skin; G62.9 Polyneuropathy, unspecified
CPT/HCPCS: 95886; 95913

== ENCOUNTER → 2023-12-26 | Outpatient (CLI) | payer MEDICARE, SELFPAY ==
[2023-12-26 10:31] LABS: Vitamin D,25 Hydroxy 90.4 ng/mL
[2023-12-26 10:38] LABS: AST(SGOT) 17 U/L (15-37); Alanine Aminotransfer ALT/SGPT 18 U/L (13-56); Albumin, Serum 3.7 g/dL (3.2-5.0); Alkaline Phosphatase 72 U/L (45-117); Anion Gap 5 (5-15); BUN 28 mg/dL (7-18); BUN/Creat Ratio 18.8 RATIO (10-20); Calcium,Total 8.7 mg/dL (8.5-10.1); Chloride 104 mmol/L (98-107); Creatinine, Serum 1.49 mg/dL (0.55-1.02); EST Glomerular Filtration Rate 35 mL/min (>60); Est Glom Filt Rate - Afr Amer 43 mL/min (>60); Globulin 3.6 g/dL (2.2-4.2); Glucose 95 mg/dL (74-106); Potassium 3.9 mmol/L (3.5-5.1); Protein, Total 7.3 g/dL (6.4-8.2); Sodium Level 138 mmol/L (136-145); Thyroid Stim Hormone (TSH) 1.54 uIU/mL (0.358-3.74)
[2023-12-30 10:09] LABS: Albumin 3.8 g/dL (2.9-4.4); Alpha-1-Globulins 0.3 g/dL (0.0-0.4); Alpha-2-Globulins 0.8 g/dL (0.4-1.0); Gamma Globulin 0.9 g/dL (0.4-1.8); Immunoglobulin A 204 mg/dL (64-422); Immunoglobulin G 994 mg/dL (586-1602); Immunoglobulin M 166 mg/dL (26-217); PROEL- TOTAL PROTEIN 6.8 g/dL (6.0-8.5)
== END | disposition home or self-care (01) ==
LOC: LAB 09:20
PROVIDERS: PCP Family Medicine; Referring Provider Psychiatry & Neurology Neurology; Visit Provider Psychiatry & Neurology Neurology
DX: I10 Essential (primary) hypertension (principal); E55.9 Vitamin D deficiency, unspecified; G62.9 Polyneuropathy, unspecified; R53.83 Other fatigue
CPT/HCPCS: 36415; 80053; 82306; 82784; 84165; 84443; 86334; 86335

== ENCOUNTER → 2024-02-13 | Outpatient (CLI) | payer MEDICARE, SELFPAY ==
--- NOTE | 2024-02-13 09:54 | NM_ITS ---
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 99m Tc PYROPHOSPHATE CARDIAC AMYLOID EXAMINATION COMPARISON: None available FINDINGS: Following the intravenous administration of 22.6 mCi of 99m Tc pyrophosphate, anterior acquisitions of the thorax reveal: 1. Planar projections demonstrate mild increased pharmaceutical concentration within the context of the left ventricular myocardium for a Perugini score of 1. The heart to contralateral ratio was calculated to be 1.13 (normal < 1.5:1). NM/PYP SPECT for Cardiac Amyloid IMPRESSION: 1. NEGATIVE EXAMINATION. There is no scintigraphic evidence of ATTR cardiac amyloidosis on the current evaluation. (Li et al, Diagnostics 11: [id number]). Electronically Signed: Brad Mccullough DO at 14:21 EDT ,
== END | disposition home or self-care (01) ==
LOC: NM 09:49
PROVIDERS: PCP Family Medicine; Referring Provider Nurse Practitioner Family; Visit Provider Nurse Practitioner Family
DX: G56.03 Carpal tunnel syndrome, bilateral upper limbs (principal); I48.19 Other persistent atrial fibrillation; R06.02 Shortness of breath
CPT/HCPCS: 78803; A9538

== ENCOUNTER 2024-02-18 06:09 | Day surgery (SDC) | payer MEDICARE, SELFPAY ==
[2024-02-18 07:01] VITALS: BP 152/72; PULSE 77; RESP 18; TEMP 36.8; O2SAT 98; BMI 26.2
[2024-02-18] MEDS: Lactated Ringers 1,000 ML 15 ML IV (07:11)
--- NOTE | 2024-02-18 07:50 | PCM.HP.STD ---
HPI - General HPI Narrative BAISA SAAVEDRA, is a 83 F who presents for right endoscopic carpal tunnel release. no changes to h and p. ok to proceed. blood thinner held. will restart POD 1. right wrist marked. no further questions or concerns. MR#: [id number] Acct: [id number] Name: BASIA SAAVEDRA Rep #: [id number] : 1940 Provider: Dr. Markos Reyes MD Age/Sex: 83/F [place] [facility] [place] Status: Signed Intake Vital Signs 10/30/2408:57 01/05/2413:34 Height 5 ft 2 in 5 ft 2 in Intake Visit Reasons: BL HANDS Chief Complaint: numbness Is patient in pain?: Yes (occasional) Allergies escitalopram [From Lexapro] Allergy (Severe, Verified 01/09/24 13:29) parasthesisSulfa (Sulfonamide Antibiotics) Allergy (Unknown, Verified 01/09/24 13:29) Unknownverapamil HCl [From Covera-HS] Allergy (Unknown, Verified 01/09/24 13:29) Othersimvastatin [From Zocor] Adverse Reaction (Severe, Verified 01/09/24 13:29) Myalgias Medications B-complex with vitamin C 1 ea PO DAILY ##30 03/18/17 [Rx Confirmed 01/09/24] levothyroxine 50 mcg tablet (Synthroid) 50 mcg PO DAILY 07/30/18 [History Confirmed 01/09/24] rosuvastatin 10 mg tablet (Crestor) 10 mg PO DAILY 03/27/23 [History Confirmed 01/09/24] cholecalciferol (vitamin D3) 25 mcg (1,000 unit) tablet 2,000 unit PO BIDCM 03/31/23 [History Confirmed 01/09/24] coenzyme Q10 100 mg tablet 100 mg PO DAILY 05/23/23 [History Confirmed 01/09/24] potassium chloride 20 mEq tablet,extended release 20 meq PO DAILY #90 tabs 07/22/23 [Rx Confirmed 01/09/24] hydroxyzine HCl 10 mg tablet 10 mg PO TID 08/07/23 [History Confirmed 01/09/24] diltiazem HCl 360 mg capsule,extended release 24 hr 360 mg PO DAILY pt wants 90 day RX for next fill #90 caps 08/13/23 [Rx Confirmed 01/09/24] albuterol sulfate 90 mcg/actuation aerosol inhaler 2 puff inhalation 4XD PRN 10/24/23 [History Confirmed 01/09/24] lorazepam 0.5 mg tablet (Ativan) 0.25 mg PO ONCE PRN Anxiety 10/24/23 [History Confirmed 01/09/24] losartan 50 mg tablet 50 mg PO DAILY #90 tabs 10/24/23 [Rx Confirmed 01/09/24] pantoprazole 40 mg tablet,delayed release (Protonix) 40 mg PO DAILY 10/24/23 [History Confirmed 01/09/24] apixaban 2.5 mg tablet (Eliquis) 2.5 mg PO BID #180 tabs 12/09/23 [Rx Confirmed 01/09/24] baclofen 5 mg tablet 5 mg PO DAILY 01/06/24 [History Confirmed 01/09/24] furosemide 20 mg tablet 20 mg PO QDAY PRN 01/06/24 [History Confirmed 01/09/24] [facility] Medical History Acute congestive heart failure Ambulates with cane Arthritis Asthma Cancer Cardiology follow-up encounter Carpal tunnel syndrome of left wrist Cephalgia Chronic cough CVA (cerebral vascular accident) Essential (primary) hypertension GERD (gastroesophageal reflux disease) High cholesterol History of atrial fibrillation History of CHF (congestive heart failure) History of echocardiogram History of edema History of hiatal hernia History of renal disease History of stress test History of stroke Hyperlipidemia, unspecified Hyponatremia Hypothyroid Non-smoker PONV (postoperative nausea and vomiting) Received intravenous tissue plasminogen activator (tPA) in emergency department Thyroid disease Wears glasses Surgical History History of hysterectomy History of tonsillectomy History of tubal ligation Status post Mohs surgery (~2011) Family History Father Heart disease Emphysema of lung Social History Smoking Status: Never smoker second hand exposure: Yes alcohol intake: never substance use type: does not use caffeine: Yes Type: coffee Number of servings: 2 what type of physical activity do you participate in: walking seatbelt use: always do you feel safe at home: Yes additional social history: Loc-Retired HPI BL HANDS Details: This documentation accurately reflects the service provided and the decisions made by me, Dr. Markos Reyes MD 01/09/24 6787. Part of today?s visit was documented by [ ], acting as scribe. BASIA SAAVEDRA is a 83 year old F here today for bilateral carpal tunnel syndrome. getting worse, the thumb index and midldle, gradually getting worse. worse on the right., has to shake it out in the evenings especially. here with her friend who drove her. very little pain. usually at night though. used to do 'hair' a lot. tries to stretch it out. does feel clumsy. RHD. had prior open CTR on the left [address] Wagner was never improved there, but no infection or other known complications Ortho Exam General General: Yes no acute distress Neurologic: Yes alert and Yes oriented x3 Psychologic: Yes reasonable and appropriate Right Wrist/Hand Skin/Wound: Yes CDI, No Swelling, No Ecchymosis, Yes nail intact and Yes capillary refill normal Right Wrist: Yes Phalen's and Thenar Atrophy; No Tinel's or Hypothenar Atrophy Motor: EPL: 5, FDP-2: 5, 1st Dorsal Interosseous: 5 and APB: 4 Sensation: Radial: I, Ulnar: I and Median: D Left Wrist/Hand Skin/Wound: Yes CDI, No Swelling, No Ecchymosis, Yes nail intact, Yes capillary refill normal and No erythema Left Wrist: Yes Phalen's and Yes Thenar Atrophy; No Tinel's and No Hypothenar Atrophy Motor: EPL: 5, FDP-2: 5, 1st Dorsal Interosseous: 5 and APB: 4 Sensation: Radial: I, Ulnar: I and Median: D WRIST: prior open ctr incision well healed, neg tinels both elbows. Supplemental Info [facility] Pulmonary Services/Neurology [address] [place] [address] MR#: [id number] Acct: [id number] Name: BASIA SAAVEDRA Rep #: [id number] : 1940 83 From: Austin Moe MD Referring Dr: Adi Mcdaniel MD Status: REG CLI Location: PSN Date: 12/03/23 Sex: F C NCS and/or EMG Patient Report Ordering Doctor: Adi Mcdaniel DATE OF SERVICE: 12/03/23 Basia presents for electrodiagnostic testing of the upper limbs. She reports numbness and tingling in both hands, worse on the right side. Electrodiagnostic findings: Right median motor nerve demonstrates prolonged distal latency with reduced amplitude and normal conduction velocity. Left median motor nerve demonstrates prolonged distal latency with normal amplitude and reduced conduction velocity. Normal ulnar motor response bilaterally. Normal median and ulnar F-waves. Absent right median sensory latency at the wrist. Prolonged median palmar latency bilaterally. Prolonged left median sensory latency at the wrist. Normal ulnar and radial sensory responses. Needle EMG testing was performed in the upper limbs. All muscles tested showed no evidence of denervation with normal motor unit action potentials. Electrodiagnostic impression: This is an abnormal study in the upper limbs 1. Electrodiagnostic findings suggestive of bilateral median mononeuropathy. This is suggestive of a moderate to advanced right carpal tunnel syndrome and a mild to moderate left carpal tunnel syndrome. Multi Select Codes Neurology Neurology Interp Codes: 67992-63 Musc test done w/n test comp (interp) (2) and 43136-40 Nrv cndj test 13/> studies (interp) Coding Level of Care Code Off vis,new,level 4 Diagnoses Bilateral carpal tunnel syndrome G56.03 Assessment and Plan Assessment and Plan (1) Bilateral carpal tunnel syndrome: Status: Acute Plan: BASIA SAAVEDRA is a 83 year old F here today for bilateral carpal tunnel syndrome. explained the dx, prognosis and options. Can get worse with time, or more permanent and difficult to treat. Can try nothing, rest ice nsaids, bracing, injections, open or endoscopic carpal tunnel release. No guarantees with surgery. Patient wants to go ahead with surgery in the form of right endoscopic carpal tunnel release. Patient has had a prior stroke is on Eliquis for that that would increase risks of surgery and she will have to be off the blood thinner so I will go ahead and send her to the neurologist to see how long before surgery she should be off those and if that is possible. Pros and cons risks and benefits were discussed with the patient including but not limited to infection, pain, stiffness, bleeding, damage to surrounding structures, neurovascular injury, recurrence or retear, failure or wear of hardware or fixation, instability, fracture, deep vein thrombosis and pulmonary embolism, anesthetic risks, , patient dissatisfaction, need for further surgery and other risks. Patient understood and wished to proceed with surgery, and signed the informed consent documentation. [facility] Medical History (Updated 02/05/24 @ 09:45 by Yamilka Allen) Acute congestive heart failure Ambulates with cane Arthritis Asthma Cancer Cardiology follow-up encounter Cephalgia Chronic cough CVA (cerebral vascular accident) Essential (primary) hypertension GERD (gastroesophageal reflux disease) High cholesterol History of atrial fibrillation History of CHF (congestive heart failure) History of echocardiogram History of edema History of hiatal hernia History of renal disease History of stress test Hyperlipidemia, unspecified Hyponatremia Hypothyroid Non-smoker PONV (postoperative nausea and vomiting) Syncope Thyroid disease Wears glasses Home Medications B-complex with vitamin C 1 ea PO DAILY ##30 03/18/17 [Rx Last Taken 02/17/24] levothyroxine 50 mcg tablet (Synthroid) 50 mcg PO DAILY 07/30/18 [History Last Taken 02/18/24] rosuvastatin 10 mg tablet (Crestor) 10 mg PO QHS 03/27/23 [History Last Taken 02/17/24] cholecalciferol (vitamin D3) 25 mcg (1,000 unit) tablet 2,000 unit PO BIDCM 03/31/23 [History Last Taken 02/17/24] coenzyme Q10 100 mg tablet 100 mg PO DAILY 05/23/23 [History Last Taken 02/17/24] potassium chloride 20 mEq tablet,extended release 20 meq PO DAILY #90 tabs 07/22/23 [Rx Last Taken 02/17/24] diltiazem HCl 360 mg capsule,extended release 24 hr 360 mg PO DAILY pt wants 90 day RX for next fill #90 caps 08/13/23 [Rx Last Taken 02/18/24] albuterol sulfate 90 mcg/actuation aerosol inhaler 2 puff inhalation 4XD PRN shortness of breath or wheezing 10/24/23 [History Last Taken Unknown] lorazepam 0.5 mg tablet (Ativan) 0.25 mg PO DAILY PRN PRN Anxiety 10/24/23 [History Last Taken 02/18/24] pantoprazole 40 mg tablet,delayed release (Protonix) 40 mg PO DAILY 10/24/23 [History Last Taken 02/18/24] apixaban 2.5 mg tablet (Eliquis) 2.5 mg PO BID #180 tabs 12/09/23 [Rx Last Taken 02/16/24] baclofen 5 mg tablet 5 mg PO DAILY 01/06/24 [History Last Taken 02/17/24] furosemide 20 mg tablet 20 mg PO QDAY PRN edema 01/06/24 [History Last Taken Unknown] calcium carbonate (Tums) 200 mg PO Q4H PRN PRN dyspepsia 02/05/24 [History Last Taken Unknown] losartan 50 mg tablet 50 mg PO QHS 02/05/24 [History Last Taken 02/17/24] Allergy/AdvReac Type Severity Reaction Status Date / Time escitalopram [From Lexapro] Allergy Severe parasthesis Verified 02/18/24 06:59 Sulfa (Sulfonamide Allergy Unknown Unknown Verified 02/18/24 06:59 Antibiotics) verapamil HCl Allergy Unknown Other Verified 02/18/24 06:59 [From Covera-HS] simvastatin [From Zocor] AdvReac Severe Myalgias Verified 02/18/24 06:59 Family History Father Heart disease Emphysema of lung Surgical History (Updated 02/05/24 @ 09:47 by Yamilka Allen) History of carpal tunnel surgery of left wrist History of esophagogastroduodenoscopy (EGD) History of hysterectomy History of tonsillectomy History of tubal ligation Status post Mohs surgery (~2011) Social History Smoking Status: Never smoker second hand exposure: Yes alcohol intake: never substance use type: does not use caffeine: Yes Type: coffee Number of servings: 2 what type of physical activity do you participate in: walking seatbelt use: always do you feel safe at home: Yes additional social history: Loc-Retired Vital Signs Vital Signs Vital Signs: 02/18/24 07:01 02/18/24 07:01 Temperature 98.3 F Temperature Source Temporal Pulse Rate 77 Respiratory Rate 18 Respiratory Pattern Normal Blood Pressure 152/72 H Blood Pressure Mean 98 Blood Pressure Source Monitor Blood Pressure Position Semi-Fowlers Blood Pressure Location Left Arm Pulse Ox 98 Oxygen Delivery Method Room Air Weight Weight: 143 lb 4.807 oz Body Mass Index (BMI) 26.2
[2024-02-18] MEDS: Cefazolin 2 GM in 0.9% Normal Saline (100mL Bag) 100 ML IV (08:00)
[2024-02-18] MEDS: Bupivacaine 0.25% 30 ML Vial (08:16)
--- NOTE | 2024-02-18 08:34 | PCM.OPRPT ---
Problems Associated Problem List Diagnoses (1) Bilateral carpal tunnel syndrome: Report of Operation Date of Procedure: 02/18/24 Pre-Operative Diagnosis: right carpal tunnel syndrome Post-Operative Diagnosis: same Surgery/Procedure Performed:: right endoscopic carpal tunnel release Surgeon: Markos Reyes Type of Anesthesia: Local MAC and Local Anesthesiologist: Antoni Paz Estimated Blood Loss (mL): 10 Description of Procedure: Patient was brought to the operating room theater.? The patient was administered 2g iv ancef prior to the start of the procedure.? Placed supine on the operating room table.? Anesthesia induced.? SCDs on the legs.? Tourniquet applied to right upper operative extremity, appropriately padded. Arm table used. Operative extremity prepped and draped in the usual sterile fashion with chlorhexidine-based prep solution allowing over 3 minutes drying time prior to draping.? Preoperative timeout performed to confirm the site patient and the surgery. I used the [facility] endoscopic carpal tunnel kit / technique. 4 cc 0.25% bupivicaine at incision site. ? Tourniquet up at 250mmg. I made a transverse 2 cm incision in line with the? transverse wrist crease.? This was in line with the fourth digit.? I carried the dissection down through skin and subcutaneous tissue achieved meticulous hemostasis. Just ulnar to palmaris tendon.? I incised the antebrachial fascia.? I passed sequential dilators into the carpal tunnel along the radial border of the Guyon's canal aiming for the fourth digit with the hand in extension. I used a synovial elevator to identify the transverse fibers of the transverse carpal tunnel ligament.? Passed the scope into the carpal tunnel. Once I had identified the full proximal and distal extent of the ligament I fully released the ligament under direct visualization by deploying the blade and slowly withdrawing the scope made sequential passes until I no longer felt tension as well as the entire extent of the ligament was released under direct visualization.? Sounded the tunnel with [place]inas tenotomy scissors, complete release, no bands. Pictures taken and saved before and after release. Tourniquet let down. Wound thoroughly irrigated.?Meticulous hemostasis achieved.? Incisions closed with 3-0 ethilon for the skin.?Skin was cleaned and dried. adaptic and 4x4 gauze and isiah wrap. Patient woken up,? transferred off the operating room table and taken to postanesthetic care unit in stable condition. All sponge needle instrument counts were correct no complications.? Plan for the patient to be discharged home according to day surgery criteria when they are comfortable. Follow-up in the office in 2 days time. Gentle ROM hand and elbow no heavy lifting. cpt 72612 Complications none Admit VTE Documentation VTE Present on Admission: No VTE Mechan Device Prophylaxis: SCD's VTE Pharm Prophylaxis ordered?: No Reason prophylaxis not ordered:: Treatment Not Indicated Procedures Musculoskeletal 20xxx-29xxx: Other Procedure See Report
--- NOTE | 2024-02-18 08:37 | DCINST_ITS ---
Discharge Instructions Diet Discharge Diet: No restrictions Activity Discharge Activity: Return to Normal Activity Lifting Restrictions: no heavy lifting or gripping Keep extremity elevated above heart level: Operative Extremity Dressing / Incision Call your doctor if your incision/area has: Continuous Slow Oozing, Sudden Increased Bleeding, Increased Pain/ Swelling, Increased Redness, Foul Smelling Discharge and Swelling at the incision site Change Dressing in: leave in place till F/U Follow Up Care Please Follow Up With: Markos Reyes MD When: 2 days Test Results: Test results from this visit will be discussed in further detail at your follow- up appointment, if applicable. Discharge Plan Admission Attending Provider: Markos Reyes Primary Care Provider: Florian Juarez Discharge Orders/Prescriptions Prescriptions: No Action lorazepam [Ativan] 0.5 mg tablet 0.25 mg PO DAILY PRN PRN (Reason: Anxiety) levothyroxine [Synthroid] 50 mcg tablet 50 mcg PO DAILY coenzyme Q10 100 mg tablet 100 mg PO DAILY albuterol sulfate 90 mcg/actuation HFA aerosol inhaler 2 puff inhalation 4XD PRN (Reason: shortness of breath or wheezing) Patient Comments: INHALE 2 (TWO) puffs BY MOUTH FOUR TIMES DAILY NEEDED FOR COUGH rosuvastatin [Crestor] 10 mg tablet 10 mg PO QHS cholecalciferol (vitamin D3) 25 mcg (1,000 unit) tablet 2,000 unit PO BIDCM Patient Comments: supplement pantoprazole [Protonix] 40 mg tablet,delayed release (DR/EC) 40 mg PO DAILY furosemide 20 mg tablet 20 mg PO QDAY PRN (Reason: edema) baclofen 5 mg tablet 5 mg PO DAILY B-complex with vitamin C 1 EACH tablet 1 ea PO DAILY Qty: 30 0RF Patient Comments: supplement calcium carbonate [Tums] 200 mg calcium (500 mg) tablet,chewable 200 mg PO Q4H PRN PRN (Reason: dyspepsia) losartan 50 mg tablet 50 mg PO QHS potassium chloride 20 mEq tablet extended release 20 meq PO DAILY Qty: 90 3RF diltiazem HCl 360 mg capsule,extended release 24hr 360 mg PO DAILY Qty: 90 3RF Eliquis 2.5 mg tablet 2.5 mg PO BID Qty: 180 3RF Referrals / Follow Up: Florian Juarez MD [Primary Care Provider] - Markos Reyes MD [Med Staff - Active Staff] - Disposition Disposition (needs filled in before D/C Order can be placed): Home, Self Care
[2024-02-18 08:40] VITALS: BP 124/80; BP 152/72; PULSE 81; RESP 16; TEMP 36.6; O2SAT 94
[2024-02-18 08:45] VITALS: BP 131/79; BP 152/72; PULSE 77; RESP 16; O2SAT 95
[2024-02-18 08:50] VITALS: BP 130/71; BP 152/72; PULSE 73; RESP 16; O2SAT 95
[2024-02-18 08:55] VITALS: BP 135/75; BP 152/72; PULSE 71; RESP 16; TEMP 36.3; O2SAT 95
[2024-02-18 09:26] VITALS: BP 152/72
[2024-02-18] MEDS: Acetaminophen 325 MG Tablet 650 MG PO (10:25)
== END 2024-02-18 10:33 | disposition home or self-care (01) ==
LOC: SDC 06:09 → AC 06:21
PROVIDERS: PCP Family Medicine; Referring Provider Orthopaedic Surgery Sports Medicine; Visit Provider Orthopaedic Surgery Sports Medicine
PROC: (CPT 64721; principal; 2024-02-18 07:45)
DX: G56.03 Carpal tunnel syndrome, bilateral upper limbs (principal); I11.0 Hypertensive heart disease with heart failure; I50.9 Heart failure, unspecified; E03.9 Hypothyroidism, unspecified; Z79.01 Long term (current) use of anticoagulants; E78.00 Pure hypercholesterolemia, unspecified; K21.9 Gastro-esophageal reflux disease without esophagitis; J45.909 Unspecified asthma, uncomplicated; Z86.73 Personal history of transient ischemic attack (TIA), and cerebral infarction without residual deficits; Z79.890 Hormone replacement therapy; Z79.899 Other long term (current) drug therapy
CPT/HCPCS: 64721; 01810; J7120; J2405

== ENCOUNTER → 2024-03-15 | Outpatient (CLI) | payer MEDICARE, SELFPAY ==
[2024-03-15 17:34] LABS: Hematocrit 38.3 % (37-47); Hemoglobin 12.1 g/dL (12.0-15.0); Mean Corp Hgb Conc 31.6 g/dL (32-36); Mean Corpuscular Hgb 28.3 pg (27.0-32.0); Mean Corpuscular Volume 89.5 fL (81-99); Mean Platelet Vol. 10.9 fl (6.2-12.0); Platelet Count 186 K/mm3 (150-450); RBC Distribution Width CV 14.2 % (11.6-14.6); RBC Distribution Width SD 46.5 fl (35.1-43.9); Red Blood Count 4.28 M/mm3 (4.2-5.4)
[2024-03-15 18:19] LABS: Anion Gap 8 (5-15); BUN 25 mg/dL (7-18); BUN/Creat Ratio 17.6 RATIO (10-20); Calcium,Total 9.1 mg/dL (8.5-10.1); Chloride 108 mmol/L (98-107); Creatinine, Serum 1.42 mg/dL (0.55-1.02); EST Glomerular Filtration Rate 37 mL/min (>60); Est Glom Filt Rate - Afr Amer 45 mL/min (>60); Glucose 90 mg/dL (74-106); Potassium 4.4 mmol/L (3.5-5.1); Sodium Level 138 mmol/L (136-145)
[2024-03-15 21:41] LABS: BNP,B-Type NATRIURETIC PEPTIDE 209.3 pg/mL (0-100)
== END | disposition home or self-care (01) ==
LOC: MTLAB 15:25
PROVIDERS: PCP Family Medicine; Referring Provider Physician Assistant Medical; Visit Provider Physician Assistant Medical
DX: I11.0 Hypertensive heart disease with heart failure (principal); I50.9 Heart failure, unspecified; E55.9 Vitamin D deficiency, unspecified; R53.83 Other fatigue
CPT/HCPCS: 36415; 80048; 83880; 85027; 85049

== ENCOUNTER → 2024-04-20 | Outpatient (CLI) | payer MEDICARE, SELFPAY ==
--- NOTE | 2024-04-20 13:43 | BI_ITS ---
MAMMOGRAPHY - BILATERAL SCREENING REASON FOR EXAM: Female, 83 years old. Routine annual screening examination. PERTINENT HISTORY: Aunts with breast cancer. TECHNIQUE: Digital bilateral breast katie (3D mammographic acquisition) in the CC and MLO projections. 2-D mediolateral oblique (MLO) and craniocaudad (CC) views of both breasts were obtained. CAD: Full Field Digital Mammography with Computer Added Detection was performed. COMPARISON: Comparison is made with prior study dated February 06, 2023 and January 22, 2022. FINDINGS: Breast Composition: There are scattered areas of fibroglandular density. There are no dominant masses or suspicious calcifications. Stable right axillary lymph nodes. No other significant abnormalities are identified. There has been no significant change since the prior study. BI/SCRN MAMM (CAD)W/KATIE BILAT IMPRESSION: Stable bilateral screening mammogram. Yearly follow-up mammogram recommended. (A) ASSESSMENT CATEGORY: BIRADS Category 2: Benign. A letter regarding these results will be sent to the patient by the facility within 30 days. Approximately 10% of breast cancers are not detected by mammography. A normal mammogram should not delay biopsy of a clinically suspicious abnormality. [id number] Electronically Signed: Deion Mora MD at 14:32 EDT ,
== END | disposition home or self-care (01) ==
LOC: OPBI 13:43
PROVIDERS: PCP Family Medicine; Referring Provider Family Medicine; Visit Provider Family Medicine
DX: Z12.31 Encounter for screening mammogram for malignant neoplasm of breast (principal); Z80.3 Family history of malignant neoplasm of breast
CPT/HCPCS: 77063; 77067

== ENCOUNTER 2024-07-12 10:30 | Outpatient (RCR) | payer MEDICARE, SELFPAY ==
--- NOTE | 2024-04-19 18:28 | HP.OTEVAL ---
Patient's Visit Information Visit Information Visit Information: STEVE SAAVEDRA is a 83 year old F, referred to Occupational Therapy by Dr. Markos Reyes MD, with a diagnosis of Carpal tunnel syndrome, bilateral upper limbs. Date of Evaluation: 04/19/24 Occupational Therapist: Nadia Luna, PATEL/Sis, CHT Subjective Subjective: This 83 year old female was seen for an OT eval with a dx of carpal tunnel syndrome, bilateral upper limbs. Pt states R and L numbness and tingling and feeling of pins and needles. R is more numb than L. Carpal tunnel surgery L wrist surgery date 02/18/24. 8.5 weeks s/p. pt feels she has had no change in her symptoms since sx. pt frustrated on progress. Objective Objective/Observation: Pt ROM WNF. Pt demonstrated decreased sensitivity in fingertips. ROM ROM Comments: ROM WNL. 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 Pt will increase R pinch strength by 3# to increase independence in ADL's. Goal:: pt will demo a reduction in 9-hole peg testing by 30sec. indication of increase in FMS for ADLs and IADLS. Goal:: Pt will test with monofilament 3.61 indicating nerve recovery by discharge. Pt will report a decrease in pins/needles sensation by 50% to improve pts independence with ADLs/IADLs. Goal:: pt will demo understanding of scar mtg by end of 3rd session to decrease scar hypertrophic concerns Goal:: Pt will demonstrate understanding of use of visual compensation to prevent injury around hot/sharp objects and to increase safety and independence in ADL's. Goal:: Pt will increase QuickDASH score by 5 points to increase independence in ADL's. Rehabilitation General Assessment: Pt arrives with dx of carpal tunnel syndrome, bilateral upper limbs. Pt ROM is WFL. Pt limited strength and decreased sensation is limiting independence in daily occupations. Pt would benefit from skilled OT services 1-2x week for 6 weeks to increase sensitivity and strength and return to PLOF with ADLs and IADLs. Today therapist reviewed tendon and nerve glides, scar massage, and dx education and progression. pt demo understanding. Therapy session was directly supervised and doc. reviewed and approved by Nadia Luna OTR/L, CHT [ End ] Rehabilitation Potential: Good Anticipated Interventions Anticipated Interventions: A/AAROM/PROM, Strengthening, Scar Care, Triggerpoint Release, Sensory Retraining, Modalities, Sensory Stimulation, Education re assistive Equipment, Education re Diagnosis, Education re Self Massage Techniques, Caregiver Training and Home Program Other Interventions: Median nerve glides Visit Plan Frequency: 2x /Week Duration: 6 Weeks General Plan: increase sensation/decrease numbness hand strengthening exercises ed. home exercises and tendon/nerve glide techniques TEXT: Thank you for the opportunity to evaluate your patient. For Medicare and Medicare HMO plans, please review the plan of care and approve it. It will need to be FAXED BACK to us at [phone] for Medicare purposes. Please let me know if there are questions or concerns regarding this plan of care. Physician Signature: Date:
--- NOTE | 2024-07-12 12:41 | HP.OTDCSUM_ITS ---
Discharge Summary D/C Summary: It has been my pleasure to treat STEVE SAAVEDRA under orders from Dr. Markos Reyes MD, for the diagnosis of Carpal tunnel syndrome, bilateral upper limbs for a total of 10 visit(s). Please see the following information for a summary of their discharge status. Overall Improvement % Improvement: 0 Objective Objective/Function: Thumb: R 4.17 ( diminished protective sensation) now 3.84 ( Diminished Protective sensation) Index: R 4.56 ( loss of protective sensation) now 3.84 Diminished protective sensation) Middle: R 4.31 (diminished protective sensation) now 4.08 ( Diminished pro tective sensation) (decrease in number = improvement in sensation) Ring: R 3.61 (diminished light touch) now 2.83 (normal sensation) Little: R 3.61 (diminished light touch) now 2.83 (normal sensation) left thumb 2.83 ( normal sensation) left IF 3.22 (Diminished Light touch) left MF 2.83 ( normal sensation) left RF 2.83 ( normal sensation) Left LF 2.83 ( normal sensation) right medical insurance biller strength 40# increase from 22# left medical insurance biller strength 40# increase 40# right lateral pinch 10# increase 9# left lateral pinch 14# increased from 12# right tripod pinch 6# increased from 4# left tripod pinch 10# increase from 8# 9-hole peg testing right 22 sec. decrease from 1min and 11 se. left 19.62 sec. a decrease from 34.62 sec. Pt has made improvements with sensation based on [place] Monofilaments since her initial evaluation. pt reports no change since she had her sx. pt reports she continues to struggle with FMS as tying shoes Objectively pt has made gains with sensation, fine motor speed and and strength. pt d/c at this time Goals Patient Goals: Regain Strength, Use Hand/Wrist/Arm Normally Again, Decrease Tingling/Numbness and Resume Former Household Responsibilities (Cooking,Cleaning,Yard, etc.) Goal:: Pt will increase R medical insurance biller strength by 10# to increase independence in ADL's. ( goal met) Pt will increase R pinch strength by 3# to increase independence in ADL's. ( progressing) Goal:: pt will demo a reduction in 9-hole peg testing by 30sec. indication of increase in FMS for ADLs and IADLS. goal met pt able to get 22 sec. ) Goal:: Pt will test with monofilament 3.61 indicating nerve recovery by discharge. Pt will report a decrease in pins/needles sensation by 50% to improve pts independence with ADLs/IADLs. ( not met) Goal:: pt will demo understanding of scar mtg by end of 3rd session to decrease scar hypertrophic concerns ( goal met) Goal:: Pt will demonstrate understanding of use of visual compensation to prevent injury around hot/sharp objects and to increase safety and independence in ADL's. Goal:: Pt will increase QuickDASH score by 5 points to increase independence in ADL's. Plan Plan: D/C D/C Information d/c sentence: If there are questions or concerns regarding this patient's occupational therapy, please fell free to call me at [phone]. Thank you for the referral of this patient. Sincerely, Nadia Luna, OTR/L, CHT
== END 2024-07-12 14:47 | disposition home or self-care (01) ==
LOC: OT 10:30
PROVIDERS: PCP Family Medicine; Referring Provider Orthopaedic Surgery Sports Medicine; Visit Provider Orthopaedic Surgery Sports Medicine
DX: G56.03 Carpal tunnel syndrome, bilateral upper limbs (principal)
CPT/HCPCS: 97035; 97110; 97140; 97166; 97530

== ENCOUNTER → 2024-07-15 | Outpatient (CLI) | payer MEDICARE, SELFPAY ==
[2024-07-15 15:17] LABS: Anion Gap 5 (5-15); BUN 24 mg/dL (7-18); BUN/Creat Ratio 17.1 RATIO (10-20); Calcium,Total 9.5 mg/dL (8.5-10.1); Chloride 105 mmol/L (98-107); EST Glomerular Filtration Rate 38 mL/min (>60); Est Glom Filt Rate - Afr Amer 46 mL/min (>60); Glucose 96 mg/dL (74-106); Potassium 4.3 mmol/L (3.5-5.1); Sodium Level 136 mmol/L (136-145)
== END | disposition home or self-care (01) ==
LOC: MFPLAB 12:19
PROVIDERS: PCP Family Medicine; Referring Provider Family Medicine; Visit Provider Family Medicine
DX: I10 Essential (primary) hypertension (principal)
CPT/HCPCS: 36415; 80048

== ENCOUNTER → 2024-07-29 | Outpatient (CLI) | payer MEDICARE, SELFPAY ==
[2024-07-29 18:07] LABS: Hematocrit 39.6 % (37-47); Hemoglobin 12.7 g/dL (12.0-15.0); Mean Corp Hgb Conc 32.1 g/dL (32-36); Mean Corpuscular Hgb 28.9 pg (27.0-32.0); Mean Corpuscular Volume 90.2 fL (81-99); Mean Platelet Vol. 10.1 fl (6.2-12.0); Platelet Count 183 K/mm3 (150-450); RBC Distribution Width CV 13.2 % (11.6-14.6); RBC Distribution Width SD 43.8 fl (35.1-43.9); Red Blood Count 4.39 M/mm3 (4.2-5.4); White Blood Count 6.1 K/mm3 (4.4-11.0)
[2024-07-29 18:30] LABS: ALB/GLOB Ratio 1.1 RATIO (0.9-2.4); AST(SGOT) 19 U/L (15-37); Alanine Aminotransfer ALT/SGPT 22 U/L (13-56); Albumin, Serum 3.6 g/dL (3.2-5.0); Alkaline Phosphatase 79 U/L (45-117); Anion Gap 5 (5-15); BUN 23 mg/dL (7-18); BUN/Creat Ratio 17.3 RATIO (10-20); Calcium,Total 8.7 mg/dL (8.5-10.1); Chloride 108 mmol/L (98-107); Creatinine, Serum 1.33 mg/dL (0.55-1.02); EST Glomerular Filtration Rate 40 mL/min (>60); Est Glom Filt Rate - Afr Amer 49 mL/min (>60); Globulin 3.4 g/dL (2.2-4.2); Glucose 103 mg/dL (74-106); Potassium 4.2 mmol/L (3.5-5.1); Sodium Level 140 mmol/L (136-145)
[2024-07-29 20:37] LABS: BNP,B-Type NATRIURETIC PEPTIDE 243.7 pg/mL (0-100)
== END | disposition home or self-care (01) ==
LOC: MFPLAB 16:57
PROVIDERS: PCP Family Medicine; Visit Provider Family Medicine
DX: I50.9 Heart failure, unspecified (principal); E03.9 Hypothyroidism, unspecified
CPT/HCPCS: 36415; 80053; 83880; 84443; 85027

== ENCOUNTER → 2024-10-12 | Outpatient (CLI) | payer MEDICARE, SELFPAY ==
[2024-10-12 09:57] LABS: Hematocrit 40.6 % (37-47); Hemoglobin 12.8 g/dL (12.0-15.0); Mean Corp Hgb Conc 31.5 g/dL (32-36); Mean Corpuscular Hgb 28.2 pg (27.0-32.0); Mean Corpuscular Volume 89.4 fL (81-99); Mean Platelet Vol. 9.5 fl (6.2-12.0); Platelet Count 199 K/mm3 (150-450); RBC Distribution Width CV 13.6 % (11.6-14.6); RBC Distribution Width SD 44.6 fl (35.1-43.9); Red Blood Count 4.54 M/mm3 (4.2-5.4)
[2024-10-12 10:18] LABS: BNP,B-Type NATRIURETIC PEPTIDE 211.1 pg/mL (0-100)
[2024-10-12 10:25] LABS: AST(SGOT) 17 U/L (15-37); Alanine Aminotransfer ALT/SGPT 23 U/L (13-56); Albumin, Serum 3.5 g/dL (3.2-5.0); Alkaline Phosphatase 88 U/L (45-117); Bilirubin, Direct 0.17 mg/dL (0.00-0.30); Cholesterol 165 mg/dL (200); Globulin 4.1 g/dL (2.2-4.2); High Density Lipoprotein 83 mg/dL; Protein, Total 7.6 g/dL (6.4-8.2); Triglycerides 66 mg/dL; Very Low Density Lipoprotein 13 mg/dL (5-40)
[2024-10-12 10:35] LABS: Anion Gap 5 (5-15); BUN 25 mg/dL (7-18); BUN/Creat Ratio 16.6 RATIO (10-20); Calcium,Total 9.4 mg/dL (8.5-10.1); Chloride 104 mmol/L (98-107); Creatinine, Serum 1.51 mg/dL (0.55-1.02); EST Glomerular Filtration Rate 35 mL/min (>60); Est Glom Filt Rate - Afr Amer 42 mL/min (>60); Glucose 88 mg/dL (74-106); Iron 59 ug/dL (50-170); Potassium 3.9 mmol/L (3.5-5.1); Sodium Level 140 mmol/L (136-145)
== END | disposition home or self-care (01) ==
LOC: MTLAB 07:52
PROVIDERS: Nurse Practitioner Family; PCP Family Medicine; Referring Provider Family Medicine; Visit Provider Family Medicine
DX: N18.30 Chronic kidney disease, stage 3 unspecified (principal); I50.9 Heart failure, unspecified; E03.9 Hypothyroidism, unspecified; E78.5 Hyperlipidemia, unspecified; R06.02 Shortness of breath
CPT/HCPCS: 36415; 80048; 80061; 80076; 82306; 83540; 83880; 84443; 85027

== ENCOUNTER → 2024-11-12 | Outpatient (CLI) | payer MEDICARE, SELFPAY | END | disposition home or self-care (01) | LOC: LABSPEC 13:47 | PROVIDERS: PCP Family Medicine; Referring Provider Family Medicine; Visit Provider Family Medicine | DX: R30.0 Dysuria (principal) | CPT/HCPCS: 87086; 87088 ==

== ENCOUNTER → 2024-12-06 | Outpatient (CLI) | payer MEDICARE, SELFPAY ==
--- NOTE | 2024-12-06 10:11 | RAD_ITS ---
EXAM: XR Chest, 2 Views CLINICAL INDICATION: TECHNIQUE: Frontal and lateral views of the chest. COMPARISON: No relevant prior studies available. FINDINGS: LUNGS AND PLEURAL SPACES: Unremarkable. No consolidation. No pneumothorax. HEART: Unremarkable. No cardiomegaly. MEDIASTINUM: Unremarkable. Normal mediastinal contour. BONES/JOINTS: Unremarkable. No acute fracture. RAD/Chest PA and Lateral IMPRESSION: No acute cardiopulmonary process. Reading Location: [facility]
== END | disposition home or self-care (01) ==
LOC: MTRAD 10:11
PROVIDERS: PCP Family Medicine; Referring Provider Family Medicine; Visit Provider Family Medicine
DX: R06.02 Shortness of breath (principal); R05.8 Other specified cough
CPT/HCPCS: 71046

== ENCOUNTER → 2024-12-16 | Outpatient (CLI) | payer MEDICARE, SELFPAY ==
[2024-12-16 12:35] LABS: Hematocrit 39.7 % (37-47); Hemoglobin 12.3 g/dL (12.0-15.0); Mean Corpuscular Volume 90.4 fL (81-99); Mean Platelet Vol. 10.6 fl (6.2-12.0); Platelet Count 190 K/mm3 (150-450); RBC Distribution Width CV 14.3 % (11.6-14.6); RBC Distribution Width SD 47.3 fl (35.1-43.9); Red Blood Count 4.39 M/mm3 (4.2-5.4); White Blood Count 6.3 K/mm3 (4.4-11.0)
[2024-12-16 13:23] LABS: ALB/GLOB Ratio 1.3 RATIO (0.9-2.4); AST(SGOT) 24 U/L (<=31); Alanine Aminotransfer ALT/SGPT 19 U/L (<=34); Albumin, Serum 3.9 g/dL (3.4-4.8); Alkaline Phosphatase 76 U/L (35-104); Anion Gap 14 (5-15); BUN 22 mg/dL (4-19); BUN/Creat Ratio 14.7 RATIO (10-20); Calcium,Total 9.2 mg/dL (7.6-11.0); Carbon Dioxide 22.5 mmol/L (21.0-32.0); Chloride 104 mmol/L (98-108); Creatinine, Serum 1.48 mg/dL (0.70-1.20); EST Glomerular Filtration Rate 34 (>60); Globulin 2.9 g/dL (2.2-4.2); Glucose 90 mg/dL (70-99); Potassium 4.1 mmol/L (3.3-5.1); Protein, Total 6.8 g/dL (5.9-8.4); Sodium Level 140 mmol/L (133-145); Total Bilirubin 0.57 mg/dL (0.00-1.30)
[2024-12-19 17:07] LABS: Vitamin B1, Thiamine 171.5 nmol/L (66.5-200.0)
== END | disposition home or self-care (01) ==
LOC: MFPLAB 09:31
PROVIDERS: PCP Family Medicine; Visit Provider Psychiatry & Neurology Neurology
DX: G31.84 Mild cognitive impairment of uncertain or unknown etiology (principal)
CPT/HCPCS: 36415; 80053; 84425; 84443; 85027

== ENCOUNTER → 2025-02-11 | Outpatient (CLI) | payer MEDICARE, SELFPAY ==
[2025-02-11 16:26] LABS: Pro- Brain NATRIURETIC PEPTIDE 2190 pg/mL (<=1800)
[2025-02-11 16:27] LABS: Anion Gap 10 (5-15); BUN 26 mg/dL (4-19); BUN/Creat Ratio 18.1 RATIO (10-20); Calcium,Total 9.4 mg/dL (7.6-11.0); Carbon Dioxide 25.3 mmol/L (21.0-32.0); Chloride 104 mmol/L (98-108); Creatinine, Serum 1.41 mg/dL (0.70-1.20); EST Glomerular Filtration Rate 37 (>60); Glucose 99 mg/dL (70-99); Potassium 4.9 mmol/L (3.3-5.1); Sodium Level 139 mmol/L (133-145)
== END | disposition home or self-care (01) ==
LOC: LAB 15:15
PROVIDERS: PCP Family Medicine; Referring Provider Internal Medicine Cardiovascular Disease; Visit Provider Internal Medicine Cardiovascular Disease
DX: I48.21 Permanent atrial fibrillation (principal); R06.02 Shortness of breath
CPT/HCPCS: 36415; 80048; 83880

== ENCOUNTER → 2025-03-29 | Outpatient (CLI) | payer MEDICARE, SELFPAY ==
--- NOTE | 2025-03-29 13:40 | ECHOD_ITS ---
Reason For Study Reason For Study: SOB Procedure This was a 2D Doppler, Color Flow transthoracic echocardiogram. Exam performed in department. Left Ventricle Normal LV size. Mild concentric left ventricular hypertrophy. Left ventricular systolic function is normal. The left ventricular ejection fraction is 65 %. No regional wall motion abnormalities noted. Right Ventricle Normal RV size. Normal systolic function. Atria The left atrium is moderately enlarged. The right atrium is moderately enlarged. Mitral Valve Normal mitral valve. Tricuspid Valve Normal tricuspid valve. Mild (1+) tricuspid valve insufficiency. Pulmonary artery systolic pressure is 30 mmHg. Aortic Valve Trisinus/trileaflet aortic valve. Pulmonic Valve Normal pulmonic valve. Great Vessels Normal aortic root. The pulmonary artery is normal size. Inferior vena cava collapse with respiration. Pericardium/Pleural No pericardial effusion. MMode/2D Measurements & Calculations LVIDd: 4.0 cm IVSd: 1.2 cm Ao root diam: 3.7 cm LVIDs: 2.4 cm LVPWd: 1.2 cm RVDd: 2.8 cm FS: 40.2 % LAV(MOD-bp): 86.4 ml LVAd ap4: 18.4 cm2 SV(MOD-sp4): 34.3 ml LAV(MOD-bp) Indexed: 49.4 ml/m2 LVLd ap4: 5.7 cm SI(MOD-sp4): 19.7 ml/m2 LAV(MOD-sp2): 89.1 ml EDV(MOD-sp4): 51.0 ml LAV(MOD-sp4): 70.5 ml EDV(sp4-el): 50.6 ml LVAs ap4: 9.8 cm2 LVLs ap4: 5.1 cm ESV(MOD-sp4): 16.7 ml ESV(sp4-el): 15.8 ml EF(MOD-sp4): 67.3 % EF(sp4-el): 68.8 % SV(sp4-el): 34.8 ml LA A4 area: 25.3 cm2 LA dimension(2D): 4.2 cm RA A4 area: 25.7 cm2 TAPSE: 1.8 cm Doppler Measurements & Calculations MV E max conner: 109.2 cm/sec Lat Peak E' Conner: 16.2 cm/sec Med Peak E' Conner: 10.3 cm/sec E/E' lat: 6.7 E/E' med: 10.6 Ao V2 max: 115.1 cm/sec LV V1 max: 104.2 cm/sec PA V2 max: 71.8 cm/sec Ao max P.3 mmHg LV V1 max P.3 mmHg Ao V2 mean: 84.7 cm/sec Ao mean P.1 mmHg Ao V2 VTI: 23.2 cm PI end-d conner: 95.7 cm/sec TR max conner: 263.0 cm/sec TR max P.7 mmHg ECHO/Echo Complete Interpretation Summary Normal LV size. Left ventricular systolic function is normal. The left ventricular ejection fraction is 65 %. Mild concentric left ventricular hypertrophy. Structurally normal valves. Ordering Physician: Lasha Brenner Referring Physician: Hansel Medina Performed By: Yoon Mcdermott RVT, RDCS and Student
== END | disposition home or self-care (01) ==
LOC: CVS 13:14
PROVIDERS: PCP Family Medicine; Referring Provider Internal Medicine Cardiovascular Disease; Visit Provider Internal Medicine Cardiovascular Disease
DX: R06.02 Shortness of breath (principal); R01.1 Cardiac murmur, unspecified
CPT/HCPCS: 93306

== ENCOUNTER → 2025-04-21 | Outpatient (CLI) | payer MEDICARE, SELFPAY ==
--- NOTE | 2025-04-21 12:42 | BD_ITS ---
PROCEDURE: DEXA BONE DENSITY STUDY 04/21/2025 REASON FOR EXAM: F, age 84 y/o . Postmenopausal. TECHNIQUE: DEXA BONE DENSITY STUDY COMPARISON: Prior study dated February 06, 2023. FINDINGS: BMD and T-SCORES Lumbar spine: 0.890 g/cm2, T-score -1.4 Levels: L1 through L4 Change from prior: Loss of 1.8%. Left femoral neck: 0.531 g/cm2, T-score -2.9 Femoral neck comparison data not recommended for monitoring change. Left total hip: 0.731 g/cm2, T-score -1.7 Change from prior: Improvement of 3.7%. Right femoral neck: 0.560 g/cm2, T-score -2.6 Femoral neck comparison data not recommended for monitoring change. Right total hip: 0.748 g/cm2, T-score -1.6 Change from prior: Improvement of 4.9%. Left 1/3 radius: g/cm2, T-score Change from prior: . Right 1/3 radius: g/cm2, T-score Change from prior: . The World Health Organization has defined the following categories based on bone density: Normal bone density: T-score equal to or greater than -1.0 Osteopenia: T-score between -1.0 and -2.5 Osteoporosis: T-score equal to or less than -2.5 The patient does meet the pharmacological treatment recommendations for prevention of osteoporosis. BD/Dexa Bone Density Study IMPRESSION: OSTEOPOROSIS. Recommend follow-up as clinically warranted. Reading Location: [place] [id number]
--- NOTE | 2025-04-21 12:42 | BI_ITS ---
EXAM: SCRN MAMM (CAD)W/KATIE BILAT DATE: 04/21/2025 CLINICAL HISTORY: F, Age 84 y/o , SCREENING Aunts with breast cancer. TECHNIQUE: SCRN MAMM (CAD)W/KATIE BILAT COMPARISON: Prior exam(s) dated April 20, 2024.. FINDINGS: TISSUE DENSITY: There are scattered areas of fibroglandular density. Bilateral Breast Mammographic Findings: No significant masses, calcifications or other abnormalities are identified. No suspicious masses, areas of developing architectural distortion, or suspicious calcifications. There has been no significant interval change. BI/SCRN MAMM (CAD)W/KATIE BILAT IMPRESSION: Stable examination. OVERALL FINAL ASSESSMENT BI-RADS 1: NEGATIVE. RECOMMEND ANNUAL MAMMOGRAPHIC SCREENING. RECOMMENDATION: Routine annual follow-up in 1 Year A letter with findings and recommendations will be mailed to the patient. Reading Location: [place] [id number]
== END | disposition home or self-care (01) ==
LOC: OPBD 12:40
PROVIDERS: PCP Family Medicine
DX: Z12.31 Encounter for screening mammogram for malignant neoplasm of breast (principal); Z78.0 Asymptomatic menopausal state; Z80.3 Family history of malignant neoplasm of breast
CPT/HCPCS: 77063; 77067; 77080

== ENCOUNTER → 2025-05-23 | Outpatient (CLI) | payer MEDICARE, SELFPAY ==
[2025-05-23 16:03] LABS: AST(SGOT) 24 U/L (<=31); Alanine Aminotransfer ALT/SGPT 15 U/L (<=34); Albumin, Serum 4.3 g/dL (3.4-4.8); Alkaline Phosphatase 90 U/L (35-104); Anion Gap 13 (5-15); BUN 25 mg/dL (4-19); BUN/Creat Ratio 16.4 RATIO (10-20); Calcium,Total 9.2 mg/dL (7.6-11.0); Carbon Dioxide 25.7 mmol/L (21.0-32.0); Chloride 98 mmol/L (98-108); Free T3 2.1 pg/mL (2.18-3.98); Globulin 2.8 g/dL (2.2-4.2); Glucose 93 mg/dL (70-99); Potassium 4.6 mmol/L (3.3-5.1)
== END | disposition home or self-care (01) ==
LOC: MFPLAB 13:49
PROVIDERS: PCP Family Medicine; Visit Provider Family Medicine
DX: I10 Essential (primary) hypertension (principal); E03.9 Hypothyroidism, unspecified
CPT/HCPCS: 36415; 80053; 84439; 84443; 84481

== ENCOUNTER → 2025-07-22 | Outpatient (CLI) | payer MEDICARE, SELFPAY ==
[2025-07-22 15:39] LABS: Mucous, Urine 0 SEEN /hpf (<or=2+)
[2025-07-22 18:32] LABS: Color, Urine Yellow (Yellow); Glucose, Dipstick Normal (Normal); Ketone-Dipstick Negative (Negative); Leukocyte Esterase-Dipstick 100 /ul (Negative); Nitrite-Dipstick Negative (Negative); Occult Blood-Urine Negative /ul (Negative); Protein-Dipstick 15 mg/dl (Negative); Specific Gravity, Urine 1.015 (1.002-1.030); Urine Bilirubin Dipstick Negative (Negative)
[2025-07-22 22:55] LABS: Red Blood Cells-Urine 0-5 SEEN /hpf (0-5); Squamous Epithelial Cells - UA 0-5 SEEN /hpf (5-10); Transitional Epithelial - Ur 0-5 SEEN /hpf (0-5)
== END | disposition home or self-care (01) ==
LOC: MTLAB 15:35
PROVIDERS: PCP Family Medicine; Referring Provider Family Medicine; Visit Provider Family Medicine
DX: R39.15 Urgency of urination (principal)
CPT/HCPCS: 81001; 87077; 87086; 87088; 87186

== ENCOUNTER → 2025-08-10 | Outpatient (CLI) | payer MEDICARE, SELFPAY ==
[2025-08-10 18:09] LABS: Hematocrit 40.1 % (37-47); Hemoglobin 13.0 g/dL (12.0-15.0); Immature Granulocytes Count 0.100 X10^3/uL (0.0-0.0); Mean Corp Hgb Conc 32.4 g/dL (32-36); Mean Corpuscular Volume 90.9 fL (81-99); Mean Platelet Vol. 10.7 fl (6.2-12.0); NRBC Flagged by Analyzer 0 % (0-5); Platelet Count 217 K/mm3 (150-450); RBC Distribution Width CV 14.1 % (11.6-14.6); RBC Distribution Width SD 47.3 fl (35.1-43.9); Red Blood Count 4.41 M/mm3 (4.2-5.4); White Blood Count 6.2 K/mm3 (4.4-11.0)
[2025-08-10 18:43] LABS: Anion Gap 12 (5-15); BUN 26 mg/dL (4-19); BUN/Creat Ratio 22.2 RATIO (10-20); Calcium,Total 9.1 mg/dL (7.6-11.0); Carbon Dioxide 25.2 mmol/L (21.0-32.0); Chloride 101 mmol/L (98-108); Glucose 85 mg/dL (70-99); Potassium 4.2 mmol/L (3.3-5.1)
== END | disposition home or self-care (01) ==
LOC: MFPLAB 13:56
PROVIDERS: PCP Family Medicine; Visit Provider Family Medicine
DX: E03.9 Hypothyroidism, unspecified (principal); M79.89 Other specified soft tissue disorders
CPT/HCPCS: 36415; 80048; 84443; 85025

== ENCOUNTER → 2025-09-22 | Outpatient (CLI) | payer MEDICARE, SELFPAY | END | disposition home or self-care (01) | LOC: LABSPEC 14:21 | PROVIDERS: PCP Family Medicine; Visit Provider Family Medicine | DX: R35.0 Frequency of micturition (principal) | CPT/HCPCS: 87086 ==